=== PATIENT | male | born 1970 | race Caucasian/White ===

== ENCOUNTER 2017-06-17 12:32 | Emergency (ER) | payer SELFPAY ==
[~2017-06-17] VITALS: Ht 185.4 cm; Wt 130.2 kg
[2017-06-17] MEDS ORDERED: KETOROLAC 60 MG/2 ML VIAL IM STA (12:41)
[2017-06-17] MEDS ORDERED: LISI2.5T PO (12:49)
[2017-06-17] MEDS ORDERED: METF-478 PO (12:49)
[2017-06-17] MEDS ORDERED: ATEN25TA PO (12:49)
--- NOTE | 2017-06-17 13:01 | ED General ---
General Chief Complaint: Hip/Pelvic Problems Stated Complaint: R SIDE HIP PAIN Nursing Triage Note: PT CO OF R SIDED HIP PAIN DENIES INJURY Nursing Sepsis Screen: No Definite Risk Source of Information: Patient, Other (significant other) Exam Limitations: No Limitations History of Present Illness Time Seen by Provider: 12:35 Initial Comments 47-year-old male patient presents to the emergency department with complaints of right sided hip pain, low back pain, and flank pain. Patient does have a history of kidney stones. Denies any known injury. Denies pain radiating down the right leg. Denies bowel or bladder incontinence. Location Injury Occurred: denies known injury Timing/Duration: 1 Day Modifying Factors: worse with Other (worse with palpation) Allergies and Home Medications Allergies Coded Allergies: No Known Drug Allergies (Unverified , 06/17/17) Home Medications Atenolol 25 Mg Tablet, Unknown Dose PO DAILY, (Reported) Cyclobenzaprine HCl 10 Mg Tablet, 10 MG PO Q8H PRN for SPASMS, #10 Ref 0 Prescribed by: AMANDEEP METZ on 06/17/17 1530 Ketoprofen 75 Mg Capsule, 75 MG PO TID PRN for PAIN-MODERATE, #20 Ref 0 Prescribed by: AMANDEEP METZ on 06/17/17 1523 Lisinopril 2.5 Mg Tablet, Unknown Dose PO DAILY, (Reported) Metformin HCl 500 Mg Tab.er.24, Unknown Dose PO, (Reported) Prednisone 20 Mg Tab, 20 MG PO BID, #6 Ref 0 Prescribed by: AMANDEEP METZ on 06/17/17 1530 Constitutional: No chills, No fever, No malaise Respiratory: No cough, No dyspnea on exertion, No short of breath Cardiovascular: No chest pain, No edema, No palpitations Gastrointestinal: No abdominal pain, No constipation, No diarrhea, No nausea, No vomiting Genitourinary: No decreased output, No dysuria, No frequency, No hematuria, other (rt flank pain) Musculoskeletal: back pain (rt low back pain), joint pain (rt hip pain), No joint swelling Skin: no symptoms reported Psychiatric/Neurological: Denies Numbness, Denies Paresthesia, Denies Tingling , Denies Weakness All Other Systems Reviewed Negative Unless Noted: Yes (Negative excepted noted.) Past Dziebap-Welrel-Ntlfba Hx Patient Social History Alcohol Use: Denies Use Recreational Drug Use: No Smoking Status: Current Everyday Smoker Type Used: Cigarettes Recent Foreign Travel: No Contact w/Someone Who Travel: No Recent Infectious Disease Expo: No Recent Hopitalizations: No Seasonal Allergies Seasonal Allergies: No Surgeries HX Surgeries: Yes Respiratory Hx Respiratory Disorders: No Cardiovascular Hx Cardiac Disorders: Yes Cardiac Disorders: Hypertension Neurological Hx Neurological Disorders: No Genitourinary Hx Genitourinary Disorders: Yes Genitourinary Disorders: Kidney Stones Gastrointestinal Hx Gastrointestinal Disorders: No Musculoskeletal Hx Musculoskeletal Disorders: Yes Musculoskeletal Disorders: Chronic Back Pain Endocrine Hx Endocrine Disorders: Yes Endocrine Disorders: Diabetes, Non-Insulin dep Reviewed Nursing Assessment Reviewed/Agree w Nursing PMH: Yes Family Medical History Significant Family History: No Pertinent Family Hx Physical Exam Vital Signs Vital Sign - Last 12Hours 06/17/17 12:35 Temp 97.9 Pulse 102 Resp 18 B/P (MAP) 143/118 Pulse Ox 96 Capillary Refill : Less Than 3 Seconds General Appearance: No Apparent Distress, WD/WN HEENT: PERRL/EOMI, Pharynx Normal Neck: Full Range of Motion, Normal Inspection, Non Tender, Supple Respiratory: Lungs Clear, Normal Breath Sounds, No Accessory Muscle Use, No Respiratory Distress Cardiovascular: Regular Rate, Rhythm, No Edema, No Murmur, Normal Peripheral Pulses Gastrointestinal: Normal Bowel Sounds, No Organomegaly, Soft, No Distended, No Guarding, No Rebound, Tenderness (rt flank tenderness) Back: Normal Inspection, No Vertebral Tenderness, No CVA Tenderness (L), CVA Tenderness (R) Extremity: Normal Capillary Refill, Normal Inspection, Normal Range of Motion, No Calf Tenderness, No Pedal Edema, Other (mild rt posterior hip tenderness) Neurologic/Psychiatric: Alert, Oriented x3, No Motor/Sensory Deficits, Normal Mood/Affect Skin: Normal Color, Warm/Dry Progress/Results/Core Measures Results/Orders Lab Results My Orders Orders - AMANDEEP METZ Im/Sub-Q Injection Non-Ab Ed (06/17/17 ) Vital Signs/I&O Blood Pressure Mean: 126 Diagnostic Imaging Diagonstic Imaging: CT Plain Films/CT/US/NM/MRI: abdomen, pelvis Comments FINDINGS: Lung bases are clear. There is a healed rib fracture in the left posterolateral aspect of the chest. There is fatty liver. The gallbladder, spleen, pancreas, adrenal glands, kidneys, vascular structures, and bowel are unremarkable. There is no hydronephrosis or hydroureter. No visible renal calculi are seen. Distal ureters and urinary bladder are normal. The prostate gland is normal. The appendix is unremarkable. There is a fat-containing umbilical hernia. No free air or free fluid is seen. Osseous structures are age appropriate. IMPRESSION: 1. Fatty liver. 2. No hydronephrosis or renal calculi. 3. Fat-containing umbilical hernia. 4. Normal appendix. Dictated by: Dictated on workstation # [id number] Reviewed: Reviewed by Me (radiology report reviewed by me) Departure Communication Progress Notes patient seen and evaluated. toradol given and ua sent to lab. monitor patient. 1330 patient reports pain initially improved with toradol, but now pain is coming back. also states girlfriend reminded him that his previous kidney stones did feel similar to the current pain he is having. therefore, we will obtain a CT abd/pelvis for stones. patient given lortab for pain. monitor patient. 1510 all laboratory and diagnostic findings discussed with the patient. Patient reports pain is was completely resolved with medications given. We'll plan for discharge to home with Flexeril, prednisone, and ketoprofen prescriptions. All return precautions were discussed with the patient. Patient voices understanding and agrees with the treatment plan. Impression Impression: Primary Impression: Muscle strain Disposition: 01 HOME, SELF-CARE Condition: Improved Departure-Patient Inst. Decision time for Depature: 15:21 Referrals: NO,LOCAL PHYSICIAN (PCP/Family) Primary Care Physician Patient Instructions: Muscle Strain (DC) Add. Discharge Instructions: All discharge instructions reviewed with patient and/or family. Voiced understanding. Medications as directed. Tylenol over the counter as directed for pain. No heavy lifting for 5-7 days, then increase activity slowly. Ice pack for 20 minute intervals for 2-3 days, then use a heating pad or pack for pain. Monitor blood sugars closely. Follow-up with your family practitioner for recheck if no improvement in symptoms in 7-10 days. Return to the emergency department for worsened symptoms, bowel incontinence, bladder incontinence, numbness of the genitals, blood in the urine, inability to urinate , or any other concerns. Scripts Cyclobenzaprine HCl (Cyclobenzaprine HCl) 10 Mg Tablet 10 MG PO Q8H Y for SPASMS, #10 TAB 0 Refills Prov: AMANDEEP METZ 06/17/17 Prednisone (Prednisone) 20 Mg Tab 20 MG PO BID, #6 TAB 0 Refills Prov: AMANDEEP METZ 06/17/17 Ketoprofen (Ketoprofen) 75 Mg Capsule 75 MG PO TID Y for PAIN-MODERATE, #20 CAP 0 Refills Prov: AMANDEEP METZ 06/17/17 Work/School Note: [employer]ing AMANDEEP METZ Jun 17, 2017 1:01 pm
[2017-06-17 13:08] LABS: BILIRUBIN,URINE NEGATIVE (NEGATIVE); KETONES,URINE NEGATIVE (NEGATIVE); NITRITE,URINE NEGATIVE (NEGATIVE); PH,URINE 5 (5-9); PROTEIN,URINE 2+ (NEGATIVE); UROBILINOGEN,URINE 1 MG/DL (NORMAL)
[2017-06-17 13:09] LABS: LEUKOCYTE ESTERASE ,URINE 1+ (NEGATIVE); SQUAMOUS EPITHELIAL CELL,UR 0-2 /HPF
[2017-06-17] MEDS ORDERED: HYDROcodone/APAP 10 MG/325 MG (LORTAB) TAB PO STA (13:37)
--- NOTE | 2017-06-17 14:38 | Diagnostic Imaging Report ---
PROCEDURE: CT urinary tract, rule out kidney stone. TECHNIQUE: Multiple contiguous axial images were obtained through the abdomen and pelvis without the use of intravenous contrast. INDICATION: Right-sided abdominal pain, history of kidney stones. COMPARISON: None. FINDINGS: Lung bases are clear. There is a healed rib fracture in the left posterolateral aspect of the chest. There is fatty liver. The gallbladder, spleen, pancreas, adrenal glands, kidneys, vascular structures, and bowel are unremarkable. There is no hydronephrosis or hydroureter. No visible renal calculi are seen. Distal ureters and urinary bladder are normal. The prostate gland is normal. The appendix is unremarkable. There is a fat-containing umbilical hernia. No free air or free fluid is seen. Osseous structures are age appropriate. IMPRESSION: 1. Fatty liver. 2. No hydronephrosis or renal calculi. 3. Fat-containing umbilical hernia. 4. Normal appendix. Dictated by: Dictated on workstation # [id number]
[2017-06-17] MEDS ORDERED: KETO75CA PO (15:23)
[2017-06-17] MEDS ORDERED: CYCL10TA9 PO (15:30)
[2017-06-17] MEDS ORDERED: PRD20T PO (15:30)
[2017-06-17 15:41] VITALS: BP 143/88
== END 2017-06-17 15:40 | disposition home or self-care (01) ==
LOC: ER 12:34
DX: S76.011A Strain of muscle, fascia and tendon of right hip, initial encounter (principal); I10 Essential (primary) hypertension; E11.9 Type 2 diabetes mellitus without complications; F17.210 Nicotine dependence, cigarettes, uncomplicated; Z87.442 Personal history of urinary calculi; Z79.84 Long term (current) use of oral hypoglycemic drugs; X58.XXXA Exposure to other specified factors, initial encounter
CPT/HCPCS: 74176; 81000; 96372; 99283

== ENCOUNTER 2017-07-27 23:58 | Emergency (ER) | payer SELFPAY ==
[~2017-07-27] VITALS: Ht 185.4 cm; Wt 127.0 kg
[~2017-07-27 23:58] MED LIST: ATEN25TA PO; CYCL10TA9 PO; KETO75CA PO; LISI2.5T PO; METF-478 PO; PRD20T PO
[2017-07-28] MEDS ORDERED: BSS 15 ML IR ONE (00:15)
[2017-07-28] MEDS ORDERED: FLUORESCEIN (FLUOR-I-STRIPS) 1 MG STRP OU ONE (00:15)
[2017-07-28] MEDS ORDERED: TETRACAINE 0.5% OPHTH SOLN 4 ML BTL (SINGLE DOSE ONLY) OU ONE (00:15)
[2017-07-28] MEDS ORDERED: ALBUTEROL (01:03)
[2017-07-28] MEDS ORDERED: SPIRIVA (01:03)
[2017-07-28] MEDS ORDERED: BC POWDER (01:03)
[2017-07-28] MEDS ORDERED: BSS 15 ML ONE (02:37)
[2017-07-28] MEDS ORDERED: FLUORESCEIN (FLUOR-I-STRIPS) 1 MG STRP ONE (02:37)
[2017-07-28] MEDS ORDERED: TETRACAINE 0.5% OPHTH SOLN 4 ML BTL (SINGLE DOSE ONLY) ONE (02:37)
[2017-07-28] MEDS ORDERED: SULF1TAB35 PO (02:55)
--- NOTE | 2017-07-28 02:56 | ED EENT ---
History of Present Illness General Chief Complaint: Eye Problems Stated Complaint: F O IN RT EYE Nursing Triage Note: PT TO ED 7 W/ FRIEND FOR C/O RT EYE PAIN ET REDNESS ONSET X2-3 DAYS AFTER POWER WASHING "A LOT" RECENTLY. DENIES ANY KNOWN INJURY Source: patient Exam Limitations: no limitations History of Present Illness Time seen by provider: 00:15 Initial Comments This 47-year-old gentleman presents to emergency room with complaints of right eye pain and irritation over the past couple of days. This seemed to correlate with some recent power washing he was performing. He denies any known of foreign body or injury to the eye. He does have a questionable stye. He denies any significant itching. He has no significant change in vision. Vision is intermittently a little "hazy". He used some ciprofloxacin drops of his 's. Allergies and Home Medications Allergies Coded Allergies: No Known Drug Allergies (Unverified , 06/17/17) Home Medications Atenolol 25 Mg Tablet, Unknown Dose PO DAILY, (Reported) Lisinopril 2.5 Mg Tablet, Unknown Dose PO DAILY, (Reported) Metformin HCl 500 Mg Tab.er.24, Unknown Dose PO, (Reported) Sulfamethoxazole/Trimethoprim 1 Each Tablet, 1 EACH PO BID, #14 Prescribed by: CANDIE MONZON on 07/28/17 0255 [Albuterol] , (Reported) [Bc Powder] , (Reported) [Spiriva] , (Reported) Review of Systems Constitutional: no symptoms reported Eyes: See HPI Ears: No Symptoms Reported Nose: no symptoms reported Mouth: no symptoms reported Throat: no symptoms reported Respiratory: no symptoms reported Cardiovascular: no symptoms reported Gastrointestinal: no symptoms reported Musculoskeletal: no symptoms reported Skin: no symptoms reported Neurological: No Symptoms Reported Past Mmbrazz-Kvxctx-Cgqebv Hx Patient Social History Alcohol Use: Denies Use Recreational Drug Use: No Smoking Status: Current Everyday Smoker Type Used: Cigarettes Recent Foreign Travel: No Contact w/Someone Who Travel: No Recent Infectious Disease Expo: No Recent Hopitalizations: No Physical Abuse: No Sexual Abuse: No Mistreated: No Fear: No Seasonal Allergies Seasonal Allergies: No Surgeries History of Surgeries: No Respiratory History of Respiratory Disorde: Yes Respiratory Disorders: COPD Cardiovascular History of Cardiac Disorders: Yes Cardiac Disorders: Hypertension Neurological History of Neurological Disord: No Genitourinary History of Genitourinary Disor: Yes Genitourinary Disorders: Kidney Stones Gastrointestinal History of Gastrointestinal Di: No Musculoskeletal History of Musculoskeletal Dis: Yes Musculoskeletal Disorders: Chronic Back Pain Endocrine History of Endocrine Disorders: Yes Endocrine Disorders: Diabetes, Non-Insulin dep HEENT History of HEENT Disorders: Yes HEENT Disorders: Cataract Cancer History of Cancer: No Psychosocial History of Psychiatric Problem: No Suicide Risk Score: 0 Integumentary History of Skin or Integumenta: No Family Medical History Significant Family History: No Pertinent Family Hx Physical Exam Vital Signs Vital Sign - Last 12Hours 07/28/17 00:47 Temp 97.8 Pulse 98 Resp 20 B/P (MAP) 179/109 Pulse Ox 97 O2 Delivery Room Air General Appearance: WD/WN, no apparent distress Eyes: right eye lid inflammation (mild swelling and erythema of the right upper eyelid), right eye stye (there is possibly a small stye on the far posterior aspect of the mucosal side of the right upper eyelid. Questionable tiny stye on the lower eyelid as well.), right eye other (fluorescein exam was unremarkable), bilateral eye PERRL, bilateral eye EOMI, bilateral eye conjunctival inflammation (bilateral, right greater than left) Ears: right ear auricle normal Nose: normal inspection Skin: normal color, warm/dry Eye : Location: right eye Anesthesia (gtts): Tetracaine Progress/Procedure Conclusion Red eye was anesthetized with tetracaine. Fluorescein exam was performed and revealed no abnormalities. No foreign bodies were identified. I was irrigated with balanced salt saline after exam. Progress/Results/Core Measures Results/Orders My Orders Orders - CANDIE MAURICIO MD Tetracaine 0.5% Ophth Rachael Sdv (Tetracai (07/28/17 00:15) Fluorescein Strips ([id number]) (07/28/17 00:15) Balanced Salt Irrigation Soln (Bss Irrig (07/28/17 00:15) Fluorescein Strips ([id number]-F-[id number]) (07/28/17 02:37) Tetracaine 0.5% Ophth Rachael Sdv (Tetracai (07/28/17 02:37) Balanced Salt Irrigation Soln (Bss Irrig (07/28/17 02:37) Rx-Ciprofloxacin Ophth Soln (Rx-Ciloxan (07/28/17 03:00) Sulfamethoxazole/Trimet Ds Tab (Bactrim (07/28/17 03:00) Medications Given in ED Vital Signs/I&O Blood Pressure Mean: 132 Departure Impression Impression: Primary Impression: Jovita Qualified Codes: H00.011 - Hordeolum externum right upper eyelid Additional Impression: Irritation of right eye Disposition: 01 HOME, SELF-CARE Condition: Improved Departure-Patient Inst. Decision time for Depature: 02:50 Referrals: LEVAR EVANS OD,LOCAL PHYSICIAN (PCP) Primary Care Physician Patient Instructions: wilbur (Hordeolum) Add. Discharge Instructions: Use your antibiotic eyedrops as prescribed (2 drops every 4 hours). Follow-up with an eye doctor as soon as possible. Complete your antibiotic pills as prescribed. Return to the emergency room if symptoms worsen. Wear protective eyewear when working in environments with spray or debris such as pressure washing. All discharge instructions reviewed with patient and/or family. Voiced understanding. Scripts Sulfamethoxazole/Trimethoprim (Bactrim Ds Tablet) 1 Each Tablet 1 EACH PO BID, #14 TAB Prov: CANDIE MAURICIO MD 07/28/17 CANDIE MAURICIO MD Jul 28, 2017 02:56
[2017-07-28] MEDS ORDERED: RX-CIPROFLOXACIN (CILOXAN) 0.3% OP SOLN 2.5 ML OU ONE (03:00)
[2017-07-28] MEDS ORDERED: TRIM/SULFAMETH 160/800 (SEPTRA DS) TAB PO ONE (03:00)
[2017-07-28 03:08] VITALS: BP 169/106
== END 2017-07-28 03:08 | disposition home or self-care (01) ==
LOC: EDUNIT# 23:58 → ER 07-28 00:03
DX: H00.011 Hordeolum externum right upper eyelid (principal); H57.8 Other specified disorders of eye and adnexa; J44.9 Chronic obstructive pulmonary disease, unspecified; I10 Essential (primary) hypertension; E11.9 Type 2 diabetes mellitus without complications; F17.210 Nicotine dependence, cigarettes, uncomplicated; Z87.442 Personal history of urinary calculi; Z79.84 Long term (current) use of oral hypoglycemic drugs
CPT/HCPCS: 99283

== ENCOUNTER 2017-07-31 11:51 | Emergency (ER) | payer SELFPAY ==
[~2017-07-31] VITALS: Ht 185.4 cm; Wt 127.0 kg
[~2017-07-31 11:51] MED LIST changes: +ALBUTEROL; +BC POWDER; +SPIRIVA; +SULF1TAB35 PO
[2017-07-31] MEDS ORDERED: GLIM1TAB PO ×2 (12:08→12:10)
[2017-07-31] MEDS ORDERED: ATEN25TA PO (12:10)
[2017-07-31] MEDS ORDERED: LISI10TA2 PO (12:10)
[2017-07-31] MEDS ORDERED: METF1000 PO (12:10)
--- NOTE | 2017-07-31 12:10 | ED General ---
General Chief Complaint: Glucose Problems Stated Complaint: BLOOD SUGAR HIGH Nursing Triage Note: C/O HYPERGLYCEMIA. reports being out of medication for a couple weeks Nursing Sepsis Screen: No Definite Risk Source of Information: Patient Exam Limitations: No Limitations History of Present Illness Time Seen by Provider: 12:07 Initial Comments To ER with reports of hyperglycemia. States that he checked his blood sugars at home and they've been in the 400-500 range. He relates this to running out of his metformin and glimepiride a few weeks ago. He is from [facility] and recently moved to this area and does not have insurance or does he have a health care provider. He's also been out of his atenolol and lisinopril. Timing/Duration: Other Severity: Moderate Allergies and Home Medications Allergies Coded Allergies: No Known Drug Allergies (Unverified , 06/17/17) Home Medications Atenolol 25 Mg Tablet, Unknown Dose PO DAILY, (Reported) Lisinopril 2.5 Mg Tablet, Unknown Dose PO DAILY, (Reported) Metformin HCl 500 Mg Tab.er.24, Unknown Dose PO, (Reported) Sulfamethoxazole/Trimethoprim 1 Each Tablet, 1 EACH PO BID, #14 Prescribed by: CANDIE MONZON on 07/28/17 0255 [Albuterol] , (Reported) [Bc Powder] , (Reported) [Spiriva] , (Reported) Constitutional: see HPI EENTM: see HPI Respiratory: no symptoms reported Cardiovascular: no symptoms reported Genitourinary: no symptoms reported Musculoskeletal: no symptoms reported Skin: no symptoms reported Psychiatric/Neurological: No Symptoms Reported Hematologic/Lymphatic: No Symptoms Reported Past Xoizyiy-Tysvld-Mdyaeh Hx Patient Social History Alcohol Use: Denies Use Recreational Drug Use: No Smoking Status: Current Everyday Smoker Type Used: Cigarettes Recent Foreign Travel: No Contact w/Someone Who Travel: No Recent Infectious Disease Expo: No Recent Hopitalizations: No Physical Abuse: No Sexual Abuse: No Seasonal Allergies Seasonal Allergies: No Surgeries History of Surgeries: No Respiratory History of Respiratory Disorde: Yes Respiratory Disorders: COPD Cardiovascular History of Cardiac Disorders: Yes Cardiac Disorders: Hypertension Neurological History of Neurological Disord: No Genitourinary History of Genitourinary Disor: Yes Genitourinary Disorders: Kidney Stones Gastrointestinal History of Gastrointestinal Di: No Musculoskeletal History of Musculoskeletal Dis: Yes Musculoskeletal Disorders: Chronic Back Pain Endocrine History of Endocrine Disorders: Yes Endocrine Disorders: Diabetes, Non-Insulin dep HEENT History of HEENT Disorders: Yes HEENT Disorders: Cataract Cancer History of Cancer: No Psychosocial History of Psychiatric Problem: No Suicide Risk Score: 0 Integumentary History of Skin or Integumenta: No Family Medical History Significant Family History: No Pertinent Family Hx Physical Exam Vital Signs Vital Sign - Last 12Hours 07/31/17 12:04 Temp 98.9 Pulse 110 Resp 18 B/P (MAP) 165/114 Pulse Ox 100 Capillary Refill : Less Than 3 Seconds General Appearance: No Apparent Distress, WD/WN, Obese Eyes: Bilateral Eye Normal Inspection, Bilateral Eye PERRL, Bilateral Eye EOMI HEENT: PERRL/EOMI, TMs Normal Neck: Full Range of Motion, Normal Inspection Respiratory: No Accessory Muscle Use, No Respiratory Distress Cardiovascular: Regular Rate, Rhythm, Normal Peripheral Pulses Gastrointestinal: Normal Bowel Sounds, Non Tender, Soft Extremity: Normal Capillary Refill, Normal Inspection Neurologic/Psychiatric: Alert, Oriented x3, No Motor/Sensory Deficits Skin: Normal Color, Warm/Dry Progress/Results/Core Measures Results/Orders Vital Signs/I&O Vital Sign - Last 12Hours 07/31/17 12:04 Temp 98.9 Pulse 110 Resp 18 B/P (MAP) 165/114 Pulse Ox 100 Blood Pressure Mean: 131 Departure Impression Impression: Primary Impression: Diabetes mellitus Disposition: 01 HOME, SELF-CARE Condition: Stable Departure-Patient Inst. Decision time for Depature: 12:09 Referrals: LE WILL,LOCAL PHYSICIAN (PCP) Primary Care Physician Patient Instructions: Diabetes Type 2 (DC) Add. Discharge Instructions: 1. Call Dr. Will to make an appointment to be seen 2. Fill the medications today and take as directed All discharge instructions reviewed with patient and/or family. Voiced understanding. Scripts Metformin HCl (Metformin HCl) 1,000 Mg Tablet 1000 MG PO BID, #28 TAB Prov: CHAITANYA HENDERSON [employer] 07/31/17 Lisinopril (Lisinopril) 10 Mg Tablet 10 MG PO DAILY, #14 TAB Prov: CHAITANYA HENDERSON [employer] 07/31/17 Glimepiride (Glimepiride) 1 Mg Tablet 1 MG PO DAILY, #14 TAB Prov: CHAITANYA HENDERSON [employer] 07/31/17 Atenolol (Atenolol) 25 Mg Tablet 25 MG PO DAILY, #14 TAB Prov: CHAITANYA HENDERSON APRN 07/31/17 CHAITANYA HENDERSON APRN Jul 31, 2017 12:10
[2017-07-31] MEDS ORDERED: NS IV 1000 ML 1,000 ML IV SCH (12:15)
[2017-07-31] MEDS ORDERED: meTOprolol TARTRATE 25 MG (LOPRESSOR) TABLET PO ONE (12:15)
[2017-07-31 12:21] LABS: BASOPHILS % (AUTO) 0 % (0-10); EOSINOPHILS % (AUTO) 0 % (0-10); LYMPHOCYTES % (AUTO) 10 % (12-44); MEAN CORPUSCULAR HEMOGLOBIN 30 PG (25-34); MEAN CORPUSCULAR HGB CONC 33 G/DL (32-36); MEAN CORPUSCULAR VOLUME 89 FL (80-99); MONOCYTES # (AUTO) 0.1 X 10^3 (0.0-1.0); MONOCYTES % (AUTO) 1 % (0-12); NEUTROPHILS # (AUTO) 9.2 X 10^3 (1.8-7.8); NEUTROPHILS % (AUTO) 89 % (42-75); PLATELET COUNT 347 10^3/uL (130-400); RED BLOOD COUNT 5.15 10^6/uL (4.35-5.85); RED CELL DISTRIBUTION WIDTH 13.3 % (10.0-14.5); WHITE BLOOD COUNT 10.4 10^3/uL (4.3-11.0)
[2017-07-31 12:35] LABS: BAND NEUTROPHILS 0 %; BASOPHILS % (MANUAL) 0 %; EOSINOPHILS % (MANUAL) 0 %; LYMPHOCYTES % (MANUAL) 13 %; NEUTROPHILS % (MANUAL) 87 %
[2017-07-31 12:47] LABS: ALANINE AMINOTRANSFERASE 28 U/L (0-55); ALBUMIN 4.2 GM/DL (3.2-4.5); ANION GAP 9 MMOL/L (5-14); ASPARTATE AMINO TRANSFERASE 14 U/L (5-34); BILIRUBIN,TOTAL 0.6 MG/DL (0.1-1.0); BLOOD UREA NITROGEN 18 MG/DL (7-18); BUN/CREATININE RATIO 17; CALCIUM 9.3 MG/DL (8.5-10.1); CARBON DIOXIDE 24 MMOL/L (21-32); CHLORIDE 102 MMOL/L (98-107); CREATININE SERUM 1.04 MG/DL (0.60-1.30); GFR ESTIMATED > 60; GLUCOSE 352 MG/DL (70-105); POTASSIUM 4.4 MMOL/L (3.6-5.0); SODIUM 135 MMOL/L (135-145); TOTAL PROTEIN 7.6 GM/DL (6.4-8.2)
[2017-07-31 12:51] LABS: BILIRUBIN,URINE NEGATIVE (NEGATIVE); KETONES,URINE 1+ (NEGATIVE); LEUKOCYTE ESTERASE ,URINE NEGATIVE (NEGATIVE); NITRITE,URINE NEGATIVE (NEGATIVE); PH,URINE 6 (5-9); PROTEIN,URINE 2+ (NEGATIVE); UROBILINOGEN,URINE NORMAL (NORMAL)
[2017-07-31 13:14] VITALS: BP 168/121
== END 2017-07-31 13:15 | disposition home or self-care (01) ==
LOC: EDUNIT# 11:51 → ER 11:53
DX: Z87.442 Personal history of urinary calculi; Z79.84 Long term (current) use of oral hypoglycemic drugs; J44.9 Chronic obstructive pulmonary disease, unspecified; F17.210 Nicotine dependence, cigarettes, uncomplicated; E11.65 Type 2 diabetes mellitus with hyperglycemia; I10 Essential (primary) hypertension
CPT/HCPCS: 36415; 80053; 81000; 82962; 85007; 85027; 96360

== ENCOUNTER 2017-11-27 18:06 | Emergency (ER) | payer SELFPAY ==
[~2017-11-27] VITALS: Ht 185.4 cm; Wt 127.5 kg
[~2017-11-27 18:06] MED LIST changes: +GLIM1TAB PO; +LISI10TA2 PO; +METF1000 PO
[2017-11-27] MEDS ORDERED: KETOROLAC 30 MG/ML VIAL IVP STA (18:25)
[2017-11-27] MEDS ORDERED: ASPIRIN 81 MG CHEW (CHILDREN'S ASA) PO STA (18:25)
[2017-11-27] MEDS ORDERED: IOHEXOL 350 MG/ML 100 ML (OMNIPAQUE 350) VIAL IV ONE (18:30)
[2017-11-27] MEDS ORDERED: NS 100 ML (IVPB) BAG IV ONE (18:30)
--- NOTE | 2017-11-27 18:36 | ED General ---
General Chief Complaint: General Problems/Pain Stated Complaint: HERNIA PAIN Nursing Triage Note: PATIENT STATES THAT HE HAS HAD A HERNIA FOR A LONG TIME. IT HAS BEEN CAUSING HIM A LOT OF PAIN AND HE HAS NOT BEEN ABLE TO GET AN APPOINTMENT WITH HIS PCP YET. Nursing Sepsis Screen: No Definite Risk Source of Information: Patient History of Present Illness Date Seen by Provider: Nov 27, 2017 Time Seen by Provider: 18:13 Initial Comments PT ARRIVES VIA POV PT CAME TO ER FOR ONGOING ABDOMINAL PAIN/ UMBILICAL HERNIA PAIN--HAS HAD HERNIA FOR A LONG TIME, BUT HAS NEVER SOUGHT CARE. PAIN HAS BEEN WORSE FOR THE LAST FEW DAYS AND WAS MUCH WORSE TODAY, AFTER LIFTING ALOT OF HEAVY THINGS AT WORK TODAY, INCLUDING A STOVE. 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 PT UNAWARE OF RAPID HEART BEAT STATES HE HAS HISTORY OF "IRREGULAR" HEART BEAT, BUT HAS NEVER BEEN ON ANY MEDICATIONS AND DOES NOT KNOW WHAT TYPE OF "IRREGULAR" HEART BEAT HE HAS HAD PT HAS HAD 2 CARDIAC CATHS--FIRST ONE WAS AT [facility], LAST ONE WAS AT [facility] IN 2016, AND BOTH WERE NORMAL. PER PT. NO CHEST PAIN SLIGHTLY SHORT OF BREATH NO SWEATS NO DIZZINESS NO SWELLING IN LEGS/ FEET OR PAIN IN [place] PT HAS HAD "BAD SINUS INFECTION" LATELY, AND HAS BEEN TAKING OTC CORICIDIN FOR THOSE SYMPTOMS PT IS ALSO A DIABETIC, BLOOD SUGARS RUN IN HIGH 100'S TO HIGH 300'S. DID NOT CHECK BLOOD GLUCOSE TODAY, BUT WAS 276 LAST PM PT HAS HISTORY OF HTN WELL PT ARRIVES WITH FEMALE S.O. --MORALES WESLEY, WELL KNOWN TO ER FOR POLYSUBSTANCE ABUSE AND ALCOHOLISM PCP: [facility]YCHIATRICSU[facility]. MJ ENRIQUE NO PAINTER PLATE Allergies and Home Medications Allergies Coded Allergies: No Known Drug Allergies (Unverified , 06/17/17) Home Medications Atenolol 25 Mg Tablet, Unknown Dose PO DAILY, (Reported) Atenolol 25 Mg Tablet, 25 MG PO DAILY, #14 Prescribed by: CHAITANYA HENDERSON on 07/31/17 1210 Glimepiride 1 Mg Tablet, 1 MG PO, (Reported) Glimepiride 1 Mg Tablet, 1 MG PO DAILY, #14 Prescribed by: CHAITANYA HENDERSON on 07/31/17 1210 Lisinopril 2.5 Mg Tablet, Unknown Dose PO DAILY, (Reported) Lisinopril 10 Mg Tablet, 10 MG PO DAILY, #14 Prescribed by: CHAITANYA HENDERSON on 07/31/17 1210 Metformin HCl 500 Mg Tab.er.24, Unknown Dose PO, (Reported) Metformin HCl 1,000 Mg Tablet, 1,000 MG PO BID, #28 Prescribed by: CHAITANYA HENDERSON on 07/31/17 1210 Sulfamethoxazole/Trimethoprim 1 Each Tablet, 1 EACH PO BID, #20 Prescribed by: HILARIA NEWBERRY on 11/27/171958 Constitutional: no symptoms reported EENTM: nose congestion (SINUS PAIN) Respiratory: see HPI, No cough, dyspnea on exertion, No orthopnea, short of breath, No wheezing Cardiovascular: see HPI, No chest pain, No edema, No syncope, No vascular heart diseas, other (NO SENSATION OF RAPID HEART BEAT) Gastrointestinal: see HPI, abdominal pain, No constipation, No diarrhea, No nausea, No vomiting Genitourinary: no symptoms reported Musculoskeletal: no symptoms reported Skin: no symptoms reported Psychiatric/Neurological: No Symptoms Reported Hematologic/Lymphatic: No Symptoms Reported Immunological/Allergic: no symptoms reported Past Skpncbg-Pflmbx-Dyonji Hx Patient Social History Alcohol Use: Past History (HISTORY OF ABUSE, NONE SINCE 2009, PER PT ON ) Recreational Drug Use: Yes (HISTORY OF COCAINE + CRACK COOCAINE AND ECSTASY USE , DENIES IV USE AND DENIES USE FOR 6 YEARS. PER PT ON 11/27/17. TESTED + FOR METH/AMPHETAMINES AND OPIATES ON 11/27/17) Drug of Choice: COCAINE/CRACK & EX- TESTED + FOR METH/AMPHETAMINES AND OPIATES 11/27/17 Smoking Status: Current Everyday Smoker (1 PPD) Type Used: Cigarettes (1 PPD) Recent Foreign Travel: No Contact w/Someone Who Travel: No Recent Infectious Disease Expo: No Recent Hopitalizations: No Seasonal Allergies Seasonal Allergies: No Surgeries History of Surgeries: Yes (CARDIAC CATH X 2--NO INTERVENTION) Respiratory History of Respiratory Disorde: Yes Respiratory Disorders: COPD Cardiovascular History of Cardiac Disorders: Yes Cardiac Disorders: Hypertension Neurological History of Neurological Disord: No Genitourinary History of Genitourinary Disor: Yes Genitourinary Disorders: Kidney Stones Gastrointestinal History of Gastrointestinal Di: Yes (UMBILICAL HERNIA, NO REPAIR) Gastrointestinal Disorders: Abdominal Hernia Musculoskeletal History of Musculoskeletal Dis: Yes (ARTHRITIS IN HANDS/THUMBS) Musculoskeletal Disorders: Arthritis, Chronic Back Pain Endocrine History of Endocrine Disorders: Yes Endocrine Disorders: Diabetes, Non-Insulin dep HEENT History of HEENT Disorders: Yes HEENT Disorders: Cataract Cancer History of Cancer: No Psychosocial History of Psychiatric Problem: No Integumentary History of Skin or Integumenta: No Family Medical History Significant Family History: No Pertinent Family Hx Physical Exam Vital Signs Vital Sign - Last 12Hours 11/27/17 18:19 Temp 98.8 Pulse 109 Resp 24 B/P (MAP) 178/117 (137) Pulse Ox 97 O2 Delivery Room Air Capillary Refill : Less Than 3 Seconds General Appearance: No Apparent Distress, Obese, Other (ANXIOUS, SPEECH RAPID AND SOMEWHAT MUMBLED. APPEARS TO BE UNDER THE INFLUENCE OF SOME SUBSTANCE/S) HEENT: PERRL/EOMI Neck: Normal Inspection Respiratory: Normal Breath Sounds, No Accessory Muscle Use, No Respiratory Distress Cardiovascular: Regular Rate, Rhythm, No Edema, No Murmur, Normal Peripheral Pulses Gastrointestinal: Hernia (MODERATE SIZED, SOFT, REDUCIBLE UMBILICAL HERNIA. OVERLYING SKIN IS ERYTHEMATOUS, WITH 1 CM SCABBED WOUND IN CENTER. ALSO HAS 2 CM SCABBED WOUND OUTSIDE OF PERIPHERY OF HERNIA, BUT AT 2:00 FROM UMBILICUS.. SLIGHT SURROUNDING ERYTHEMA. NO AREAS OF FLUCTUANCE OR DRAINAGE OR STREAKS. ), Tenderness (AROUND HERNIA SITE AND SUPRAPUBIC AREA. 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 Norm as Tested Skin: Normal Color, Warm/Dry Progress/Results/Core Measures Suspected Sepsis Recent Fever Within 48 Hours: No Infection Criteria Present: None New/Unexplained Altered Menta: No Sepsis Screen: No Definite Risk Sepsis Diagnosis: SIRS Temperature:98.8 Pulse: 109 Respiratory Rate: 24 Laboratory Tests 11/27/17 18:30: White Blood Count 9.8 Blood Pressure 178 /117 Mean: 137 Laboratory Tests 11/27/17 18:30: Creatinine 0.84, INR Comment 0.8, Platelet Count 377, Total Bilirubin 0.2 Results/Orders Lab Results Laboratory Tests Test 11/27/17 18:30 11/27/17 18:37 Range/Units White Blood Count 9.8 4.3-11.0 10^3/uL Red Blood Count 5.05 4.35-5.85 10^6/uL Hemoglobin 15.5 13.3-17.7 G/DL Hematocrit 44 40-54 % Mean Corpuscular Volume 87 80-99 FL Mean Corpuscular Hemoglobin 31 25-34 PG Mean Corpuscular Hemoglobin Concent 36 32-36 G/DL Red Cell Distribution Width 12.5 10.0-14.5 % Platelet Count 377 130-400 10^3/uL Mean Platelet Volume 10.0 7.4-10.4 FL Neutrophils (%) (Auto) 60 42-75 % Lymphocytes (%) (Auto) 30 12-44 % Monocytes (%) (Auto) 7 0-12 % Eosinophils (%) (Auto) 2 0-10 % Basophils (%) (Auto) 1 0-10 % Neutrophils # (Auto) 5.9 1.8-7.8 X 10^3 Lymphocytes # (Auto) 3.0 1.0-4.0 X 10^3 Monocytes # (Auto) 0.7 0.0-1.0 X 10^3 Eosinophils # (Auto) 0.2 0.0-0.3 10^3/uL Basophils # (Auto) 0.1 0.0-0.1 10^3/uL Prothrombin Time 11.1 L 12.2-14.7 SEC INR Comment 0.8 0.8-1.4 Activated Partial Thromboplast Time 34 24-35 SEC Sodium Level 137 135-145 MMOL/L Potassium Level 4.2 3.6-5.0 MMOL/L Chloride Level 103 98-107 MMOL/L Carbon Dioxide Level 22 21-32 MMOL/L Anion Gap 12 5-14 MMOL/L Blood Urea Nitrogen 12 7-18 MG/DL Creatinine 0.84 0.60-1.30 MG/DL Estimat Glomerular Filtration Rate > 60 BUN/Creatinine Ratio 14 Glucose Level 261 H 70-105 MG/DL Glucometer 246 H 70-110 MG/DL Calcium Level 9.0 8.5-10.1 MG/DL Magnesium Level 2.2 1.8-2.4 MG/DL Total Bilirubin 0.2 0.1-1.0 MG/DL Aspartate Amino Transf (AST/SGOT) 19 5-34 U/L Alanine Aminotransferase (ALT/SGPT) 27 0-55 U/L Alkaline Phosphatase 121 40-136 U/L Total Creatine Kinase 97 30-200 U/L Creatine Kinase MB 1.6 <6.6 NG/ML Troponin I < 0.30 <0.30 NG/ML B-Type Natriuretic Peptide < 10.0 <100.0 PG/ML Total Protein 7.5 6.4-8.2 GM/DL Albumin 4.0 3.2-4.5 GM/DL Amylase Level 34 25-125 U/L Lipase 16 8-78 U/L TSH [employer] Testing 0.93 0.35-4.94 UIU/ML Serum Alcohol < 10 <10 MG/DL Urine Color YELLOW Urine Clarity CLEAR Urine pH 6 5-9 Urine Specific [place] 1.020 1.016-1.022 Urine Protein 1+ H NEGATIVE Urine Glucose (UA) 4+ H NEGATIVE Urine Ketones NEGATIVE NEGATIVE Urine Nitrite NEGATIVE NEGATIVE Urine Bilirubin NEGATIVE NEGATIVE Urine Urobilinogen NORMAL NORMAL MG/DL Urine Leukocyte Esterase NEGATIVE NEGATIVE Urine RBC (Auto) NEGATIVE NEGATIVE Urine RBC NONE /HPF Urine WBC RARE /HPF Urine Squamous Epithelial Cells NONE /HPF Urine Crystals PRESENT H /LPF Urine Calcium Oxalate Crystals FEW H /LPF Urine Bacteria NEGATIVE /HPF Urine Casts NONE /LPF Urine Mucus NEGATIVE /LPF Urine Culture Indicated NO Urine Opiates Screen POSITIVE H NEGATIVE Urine Oxycodone Screen NEGATIVE NEGATIVE Urine Methadone Screen NEGATIVE NEGATIVE Urine Propoxyphene Screen NEGATIVE NEGATIVE Urine Barbiturates Screen NEGATIVE NEGATIVE Ur Tricyclic Antidepressants Screen NEGATIVE NEGATIVE Urine Phencyclidine Screen NEGATIVE NEGATIVE Urine Amphetamines Screen POSITIVE H NEGATIVE Urine Methamphetamines Screen POSITIVE H NEGATIVE Urine Benzodiazepines Screen NEGATIVE NEGATIVE Urine Cocaine Screen NEGATIVE NEGATIVE Urine Cannabinoids Screen NEGATIVE NEGATIVE My Orders Orders - HILARIA NEWBERRY DO Accucheck Stat ONCE (11/27/17 18:25) Saline Lock/Iv-Start (11/27/17 18:25) Ekg Tracing (11/27/17 18:25) Monitor-Rhythm Ecg Trace Only (11/27/17 18:25) Alcohol (11/27/17 18:25) Amylase (11/27/17 18:25) BNP (11/27/17 18:25) Cbc With Automated Diff (11/27/17 18:25) Comprehensive Metabolic Panel (11/27/17 18:25) Creatine Kinase (11/27/17 18:25) Creatine Kinase Mb (11/27/17 18:25) Drug Screen Stat (Urine) (11/27/17 18:25) Lipase (11/27/17 18:25) Magnesium (11/27/17 18:25) Protime With Inr (11/27/17 18:25) Partial Thromboplastin Time (11/27/17 18:25) Thyroid Analyzer (11/27/17 18:25) Troponin I (11/27/17 18:25) Ua Culture If Indicated (11/27/17 18:25) Chest 1 View, Ap/Pa Only (11/27/17 18:25) Ct Abdomen/Pelvis W (11/27/17 18:25) Aspirin Chewable Tablet (Baby Aspirin Ch (11/27/17 18:25) Ketorolac Injection (Toradol Injection) (11/27/17 18:25) Iohexol Injection (Omnipaque 350 Mg/Ml 1 (11/27/17 18:30) Ns (Ivpb) (Sodium Chloride 0.9% Ivpb Bag (11/27/17 18:30) Orphenadrine Injection (Norflex Injectio (11/27/17 20:00) Medications Given in ED Current Medications Medications Dose Ordered Sig/Bushra Route Start Time Stop Time Status Last Admin Dose Admin Iohexol 100 ml ONCE ONCE IV 11/27/17 18:30 11/27/17 18:38 DC 11/27/17 19:22 100 ML Orphenadrine Citrate 60 mg ONCE ONCE IV 11/27/17 20:00 11/27/17 20:01 DC 11/27/17 20:29 60 MG Sodium Chloride 100 ml ONCE ONCE IV 11/27/17 18:30 11/27/17 18:38 DC 11/27/17 19:23 100 ML Vital Signs/I&O Vital Sign - Last 12Hours 11/27/17 11/27/17 18:19 20:26 Temp 98.8 98.8 Pulse 109 102 Resp 24 24 B/P (MAP) 178/117 (137) Pulse Ox 97 97 O2 Delivery Room Air Capillary Refill : Less Than 3 Seconds Blood Pressure Mean: 137 Progress Note : Progress Note UNEVENTFUL ER STAY WANTING "SOMETHING STRONG" FOR PAIN STATES HE TAKES TRAMADOL FOR PAIN "BUT NOT FOR A LONG TIME" ECG Comment CXR--INTERSTITIAL OPACITIES, POSSIBLY CHRONIC CT ABDOMEN/PELVIS--UMBILICAL HERNIA, CONTAINING FAT, MODERATE TO LARGE AMOUNT OF STOOL IN COLON. NO ACUTE PROCESS PER RADIOLOGIST REPORTS @ 1954 Departure Impression Impression: Primary Impression: Umbilical hernia Additional Impressions: POSSIBLE CELLULITIS OF UMBILICAL AREA Illicit drug use BRIEF TACHYCARDIA Abdominal wall pain Constipation NIDDM Disposition: HOME, SELF-CARE Condition: Stable Departure-Patient Inst. Referrals: LE WILL DO (PCP) Primary Care Physician AHMET ENRIQUE (Family) Primary Care Physician JOSE AMAYA DO Patient Instructions: Cellulitis (Skin Infection), Adult (DC), Constipation, Adult (DC), Diabetes Type 2 (DC), High Fiber Diet, Umbilical Hernia, Adult Add. Discharge Instructions: CONTINUE YOUR REGULAR MEDICATIONS PRESCRIBED TAKE MIRALAX DAILY FOLLOW UP WITH PSYCHIATRIC-K THIS WEEK FOR FURTHER CARE FOLLOW UP WITH DR. AMAYA OR SURGEON OF CHOICE FOR HERNIA All discharge instructions reviewed with patient and/or family. Voiced understanding. Scripts Sulfamethoxazole/Trimethoprim (Bactrim Ds Tablet) 1 Each Tablet 1 EACH PO BID, #20 TAB Prov: HILARIA NEWBERRY DO 11/27/17 HILARIA NEWBERRY DO Nov 27, 2017 18:36
[2017-11-27 18:39] LABS: BASOPHILS # (AUTO) 0.1 10^3/uL (0.0-0.1); BASOPHILS % (AUTO) 1 % (0-10); EOSINOPHILS # (AUTO) 0.2 10^3/uL (0.0-0.3); EOSINOPHILS % (AUTO) 2 % (0-10); HEMATOCRIT 44 % (40-54); HEMOGLOBIN 15.5 G/DL (13.3-17.7); LYMPHOCYTES % (AUTO) 30 % (12-44); MEAN CORPUSCULAR HEMOGLOBIN 31 PG (25-34); MEAN CORPUSCULAR HGB CONC 36 G/DL (32-36); MEAN CORPUSCULAR VOLUME 87 FL (80-99); MONOCYTES # (AUTO) 0.7 X 10^3 (0.0-1.0); MONOCYTES % (AUTO) 7 % (0-12); NEUTROPHILS # (AUTO) 5.9 X 10^3 (1.8-7.8); NEUTROPHILS % (AUTO) 60 % (42-75); PLATELET COUNT 377 10^3/uL (130-400); RED BLOOD COUNT 5.05 10^6/uL (4.35-5.85); RED CELL DISTRIBUTION WIDTH 12.5 % (10.0-14.5); WHITE BLOOD COUNT 9.8 10^3/uL (4.3-11.0)
[2017-11-27 18:51] LABS: BILIRUBIN,URINE NEGATIVE (NEGATIVE); CLARITY,URINE CLEAR; COLOR,URINE YELLOW; GLUCOSE, URINE (UA) 4+ (NEGATIVE); KETONES,URINE NEGATIVE (NEGATIVE); LEUKOCYTE ESTERASE ,URINE NEGATIVE (NEGATIVE); NITRITE,URINE NEGATIVE (NEGATIVE); PH,URINE 6 (5-9); PROTEIN,URINE 1+ (NEGATIVE); UROBILINOGEN,URINE NORMAL (NORMAL)
[2017-11-27 18:52] LABS: INR 0.8 (0.8-1.4); PROTHROMBIN TIME PATIENT 11.1 SEC (12.2-14.7)
[2017-11-27 19:01] LABS: ALANINE AMINOTRANSFERASE 27 U/L (0-55); ALKALINE PHOSPHATASE 121 U/L (40-136); AMYLASE 34 U/L (25-125); BILIRUBIN,TOTAL 0.2 MG/DL (0.1-1.0); BUN/CREATININE RATIO 14; CARBON DIOXIDE 22 MMOL/L (21-32); CHLORIDE 103 MMOL/L (98-107); CREATINE KINASE 97 U/L (30-200); CREATININE SERUM 0.84 MG/DL (0.60-1.30); GFR ESTIMATED > 60; GLUCOSE 261 MG/DL (70-105); LIPASE 16 U/L (8-78); MAGNESIUM 2.2 MG/DL (1.8-2.4); POTASSIUM 4.2 MMOL/L (3.6-5.0); SODIUM 137 MMOL/L (135-145); TOTAL PROTEIN 7.5 GM/DL (6.4-8.2)
[2017-11-27 19:07] LABS: AMPHETAMINE SCREEN, URINE POSITIVE (NEGATIVE); BARBITURATE SCREEN URINE NEGATIVE (NEGATIVE); BENZODIAZEPINES SCREEN URINE NEGATIVE (NEGATIVE); CANNABINOID SCREEN, URINE NEGATIVE (NEGATIVE); COCAINE SCREEN URINE NEGATIVE (NEGATIVE); METHADONE STAT NEGATIVE (NEGATIVE); METHAMPHETAMINE SCREEN URINE S POSITIVE (NEGATIVE); OPIATE SCREEN URINE POSITIVE (NEGATIVE); OXYCODONE STAT NEGATIVE (NEGATIVE); PROPOXYPHENE STAT NEGATIVE (NEGATIVE); TRICYCLIC ANTIDEPRESSANTS SCRE NEGATIVE (NEGATIVE)
[2017-11-27 19:15] LABS: BACTERIA,URINE NEGATIVE /HPF; CALCIUM OXALATE CRYSTALS,UR FEW /LPF; WBC,URINE RARE /HPF
[2017-11-27 19:21] LABS: CREATINE KINASE MB 1.6 NG/ML (<6.6); TSH (THYROID ANALYZER) 0.93 UIU/ML (0.35-4.94)
--- NOTE | 2017-11-27 19:31 | Diagnostic Imaging Report ---
INDICATION: Cough. COMPARISON: None available. FINDINGS: Heart is enlarged. There are increased interstitial markings within the mid and lower lung zones. No pleural effusion. No dense pulmonary consolidation. No pneumothorax. IMPRESSION: Cardiomegaly with interstitial opacities that could relate to early interstitial pulmonary edema in the appropriate setting. However, these could be chronic in nature and may represent atelectasis or scar. Dictated by: Dictated on workstation # [id number]
--- NOTE | 2017-11-27 19:51 | Diagnostic Imaging Report ---
PROCEDURE: CT abdomen and pelvis with contrast. TECHNIQUE: Multiple contiguous axial images were obtained through the abdomen and pelvis after administration of intravenous contrast. INDICATION: Mid and lower abdominal pain for 3 weeks FINDINGS: The lung bases are clear. There is fatty infiltration of the liver. The gallbladder is present and unremarkable. The pancreas appears normal. The spleen is not enlarged. Adrenals are normal. Kidneys appear normal. There is an umbilical hernia containing fat. Small bowel is not dilated. There is a large amount of stool in the ascending and transverse colon. Urinary bladder is normal. Prostate is not enlarged. There is no intraperitoneal free air or free fluid. The appendix is not seen. IMPRESSION: Umbilical hernia containing fat. No acute abnormality is seen in the abdomen. Dictated by: Dictated on workstation # [id number]
[2017-11-27] MEDS ORDERED: SULF1TAB35 PO (19:59)
[2017-11-27] MEDS ORDERED: ORPHENADRINE 60 MG/2 ML (NORFLEX) AMP IV ONE (20:00)
[2017-11-27 20:26] VITALS: BP 168/101
== END 2017-11-27 20:32 | disposition home or self-care (01) ==
LOC: EDUNIT# 18:06 → ER 18:07
DX: K42.9 Umbilical hernia without obstruction or gangrene (principal); R00.0 Tachycardia, unspecified; K59.00 Constipation, unspecified; E11.9 Type 2 diabetes mellitus without complications; J44.9 Chronic obstructive pulmonary disease, unspecified; I10 Essential (primary) hypertension; F14.10 Cocaine abuse, uncomplicated; F15.10 Other stimulant abuse, uncomplicated; F12.10 Cannabis abuse, uncomplicated; F17.210 Nicotine dependence, cigarettes, uncomplicated; Z87.19 Personal history of other diseases of the digestive system; Z79.84 Long term (current) use of oral hypoglycemic drugs; Z87.442 Personal history of urinary calculi
CPT/HCPCS: 36415; 71045; 74177; 80053; 80306; 80320; 81000; 82150; 82550; 82553; 82962; 83690; 83735; 83880; 84443; 84484; 85025; 85610; 85730; 93005; 93041; 96374; 96375

== ENCOUNTER 2018-05-12 02:35 | Emergency (ER) | payer SELFPAY ==
[~2018-05-12] VITALS: Ht 185.4 cm; Wt 127.5 kg
[~2018-05-12 02:35] MED LIST changes: -KETO75CA PO; +KETO75CA11 PO; -METF1000 PO; +METF10002 PO
[2018-05-12] MEDS ORDERED: fentaNYL INJECTION 100 MCG/2 ML AMP IVP STA (02:56)
[2018-05-12] MEDS ORDERED: KETOROLAC 30 MG/ML VIAL IVP STA (02:56)
[2018-05-12] MEDS ORDERED: NS IV 1000 ML 1,000 ML IV ONE (02:56)
[2018-05-12 03:11] LABS: BASOPHILS # (AUTO) 0.1 10^3/uL (0.0-0.1); BASOPHILS % (AUTO) 1 % (0-10); EOSINOPHILS # (AUTO) 0.1 10^3/uL (0.0-0.3); EOSINOPHILS % (AUTO) 1 % (0-10); HEMATOCRIT 44 % (40-54); HEMOGLOBIN 15.4 G/DL (13.3-17.7); LYMPHOCYTES # (AUTO) 3.4 X 10^3 (1.0-4.0); LYMPHOCYTES % (AUTO) 34 % (12-44); MEAN CORPUSCULAR HEMOGLOBIN 30 PG (25-34); MEAN CORPUSCULAR HGB CONC 35 G/DL (32-36); MEAN CORPUSCULAR VOLUME 85 FL (80-99); MEAN PLATELET VOLUME 9.5 FL (7.4-10.4); MONOCYTES # (AUTO) 0.6 X 10^3 (0.0-1.0); MONOCYTES % (AUTO) 6 % (0-12); NEUTROPHILS % (AUTO) 59 % (42-75); PLATELET COUNT 483 10^3/uL (130-400); RED BLOOD COUNT 5.19 10^6/uL (4.35-5.85); RED CELL DISTRIBUTION WIDTH 12.7 % (10.0-14.5); WHITE BLOOD COUNT 10.2 10^3/uL (4.3-11.0)
[2018-05-12 03:15] LABS: BILIRUBIN,URINE NEGATIVE (NEGATIVE); CLARITY,URINE CLEAR; COLOR,URINE YELLOW; GLUCOSE, URINE (UA) 4+ (NEGATIVE); KETONES,URINE NEGATIVE (NEGATIVE); LEUKOCYTE ESTERASE ,URINE NEGATIVE (NEGATIVE); NITRITE,URINE NEGATIVE (NEGATIVE); PH,URINE 6 (5-9); PROTEIN,URINE NEGATIVE (NEGATIVE); UROBILINOGEN,URINE NORMAL (NORMAL)
--- NOTE | 2018-05-12 03:25 | ED GU-Male ---
General Stated Complaint: SIDE PAIN POSS KIDNEY STONES Source: patient Exam Limitations: no limitations History of Present Illness Date Seen by Provider: May 12, 2018 Time Seen by Provider: 02:47 Initial Comments Here with report of right-sided right flank pain and right back pain. Concerned about kidney stones. States the pain radiates across his back. Recently has had an infection on an abscess that is currently being treated and he states that's actually much better. Does have history of kidney stones and states this feels Like that. He reports that he's had some difficulty sleeping last couple ninth. He was on pain medicine for this abscess in his not been on that for 3 nights now and that coincides with the difficulty in sleeping. This may be what that is about. Denies dysuria or diarrhea. Denies nausea or vomiting. Denies blood in his urine or stool. Timing/Duration: getting worse Severity/Quality: moderate Location: right flank Radiation: other (across the back) Activities at Onset: none Modifying Factors: Improves With Analgesics Associated Symptoms: No abdominal pain, No fever/chills; lower back pain; No nausea/vomiting, No urinary frequency Allergies and Home Medications Allergies Coded Allergies: No Known Drug Allergies (Unverified , 06/17/17) Home Medications Atenolol 25 Mg Tablet, Unknown Dose PO DAILY, (Reported) Atenolol 25 Mg Tablet, 25 MG PO DAILY Prescribed by: CHAITANYA HENDERSON on 07/31/17 1210 Glimepiride 1 Mg Tablet, 1 MG PO DAILY Prescribed by: CHAITANYA HENDERSON on 07/31/17 1210 Lisinopril 2.5 Mg Tablet, Unknown Dose PO DAILY, (Reported) Lisinopril 10 Mg Tablet, 10 MG PO DAILY Prescribed by: CHAITANYA HENDERSON on 07/31/17 1210 Metformin HCl 1,000 Mg Tablet, 1,000 MG PO BID Prescribed by: CHAITANYA HENDERSON on 07/31/17 1210 Sulfamethoxazole/Trimethoprim 1 Each Tablet, 1 EACH PO BID Prescribed by: HILARIA NEWBERRY on 11/27/171958 Patient Home Medication List Home Medication List Reviewed: Yes Review of Systems Constitutional: see HPI; No chills, No fever EENTM: no symptoms reported Respiratory: no symptoms reported Cardiovascular: no symptoms reported Gastrointestinal: no symptoms reported Genitourinary: see HPI; denies frequency; flank pain Musculoskeletal: back pain; No muscle pain Skin: no symptoms reported Psychiatric/Neurological: No Symptoms Reported All Other Systemes Reviewed Negative Unless Noted: Yes Past Hoadlxy-Ojuade-Jukcoc Hx Past Med/Social Hx: Reviewed Nursing Past Med/Soc Hx Patient Social History Alcohol Use: Denies Use Recreational Drug Use: No Drug of Choice: COCAINE/CRACK & EX- TESTED + FOR METH/AMPHETAMINES AND OPIATES 11/27/17 Smoking Status: Current Everyday Smoker Type Used: Cigarettes 2nd Hand Smoke Exposure: Yes Recent Foreign Travel: No Contact w/Someone Who Travel: No Recent Hopitalizations: No Seasonal Allergies Seasonal Allergies: No Past Medical History Surgeries: Yes (CARDIAC CATH X 2--NO INTERVENTION) Respiratory: Yes COPD Cardiac: Yes Hypertension Neurological: No Genitourinary: Yes Kidney Stones Gastrointestinal: Yes (UMBILICAL HERNIA, NO REPAIR) Abdominal Hernia Musculoskeletal: Yes (ARTHRITIS IN HANDS/THUMBS) Arthritis, Chronic Back Pain Endocrine: Yes Diabetes, Non-Insulin dep HEENT: Yes Cataract Cancer: No Psychosocial: No Integumentary: No Family Medical History Reviewed Nursing Family Hx No Pertinent Family Hx Physical Exam Vital Signs Vital Signs - First Documented 05/12/18 03:02 Temp 99.9 Pulse 110 Resp 20 B/P (MAP) 165/107 (126) Pulse Ox 96 O2 Delivery Room Air Capillary Refill : Height, Weight, BMI Height: 6'1.00" Weight: 281lbs. 0oz. [phone]; BMI Method:Stated General Appearance: WD/WN, no apparent distress HEENT: PERRL/EOMI, pharynx normal Neck: full range of motion, supple Cardiovascular: regular rate, rhythm, no murmur Respiratory: lungs clear, normal breath sounds Gastrointestinal: non tender, soft Back: CVA tenderness (R); No CVA tenderness (L), No decreased range of motion, No muscle spasm, No vertebral tenderness Extremities: non-tender, normal inspection Neurologic/Psychiatric: alert, oriented x 3 Skin: normal color, warm/dry Progress/Results/Core Measures Suspected Sepsis SIRS Temperature: Pulse: Respiratory Rate: Laboratory Tests 05/12/18 03:02: White Blood Count 10.2 Blood Pressure / Mean: Laboratory Tests 05/12/18 03:02: Creatinine 0.85, Platelet Count 483H, Total Bilirubin 0.3 Results/Orders Lab Results Laboratory Tests Test 05/12/18 03:02 05/12/18 03:05 Range/Units White Blood Count 10.2 4.3-11.0 10^3/uL Red Blood Count 5.19 4.35-5.85 10^6/uL Hemoglobin 15.4 13.3-17.7 G/DL Hematocrit 44 40-54 % Mean Corpuscular Volume 85 80-99 FL Mean Corpuscular Hemoglobin 30 25-34 PG Mean Corpuscular Hemoglobin Concent 35 32-36 G/DL Red Cell Distribution Width 12.7 10.0-14.5 % Platelet Count 483 H 130-400 10^3/uL Mean Platelet Volume 9.5 7.4-10.4 FL Neutrophils (%) (Auto) 59 42-75 % Lymphocytes (%) (Auto) 34 12-44 % Monocytes (%) (Auto) 6 0-12 % Eosinophils (%) (Auto) 1 0-10 % Basophils (%) (Auto) 1 0-10 % Neutrophils # (Auto) 6.0 1.8-7.8 X 10^3 Lymphocytes # (Auto) 3.4 1.0-4.0 X 10^3 Monocytes # (Auto) 0.6 0.0-1.0 X 10^3 Eosinophils # (Auto) 0.1 0.0-0.3 10^3/uL Basophils # (Auto) 0.1 0.0-0.1 10^3/uL Sodium Level 133 L 135-145 MMOL/L Potassium Level 4.1 3.6-5.0 MMOL/L Chloride Level 100 98-107 MMOL/L Carbon Dioxide Level 22 21-32 MMOL/L Anion Gap 11 5-14 MMOL/L Blood Urea Nitrogen 14 7-18 MG/DL Creatinine 0.85 0.60-1.30 MG/DL Estimat Glomerular Filtration Rate > 60 BUN/Creatinine Ratio 16 Glucose Level 390 H 70-105 MG/DL Calcium Level 9.5 8.5-10.1 MG/DL Total Bilirubin 0.3 0.1-1.0 MG/DL Aspartate Amino Transf (AST/SGOT) 15 5-34 U/L Alanine Aminotransferase (ALT/SGPT) 37 0-55 U/L Alkaline Phosphatase 138 H 40-136 U/L Total Protein 7.6 6.4-8.2 GM/DL Albumin 4.0 3.2-4.5 GM/DL Urine Color YELLOW Urine Clarity CLEAR Urine pH 6 5-9 Urine Specific [place] 1.015 L 1.016-1.022 Urine Protein NEGATIVE NEGATIVE Urine Glucose (UA) 4+ H NEGATIVE Urine Ketones NEGATIVE NEGATIVE Urine Nitrite NEGATIVE NEGATIVE Urine Bilirubin NEGATIVE NEGATIVE Urine Urobilinogen NORMAL NORMAL MG/DL Urine Leukocyte Esterase NEGATIVE NEGATIVE Urine RBC (Auto) NEGATIVE NEGATIVE Urine RBC NONE /HPF Urine WBC NONE /HPF Urine Squamous Epithelial Cells RARE /HPF Urine Crystals NONE /LPF Urine Bacteria NEGATIVE /HPF Urine Casts NONE /LPF Urine Mucus NEGATIVE /LPF Urine Culture Indicated NO My Orders Orders - TIMI CRAVEN MD Cbc With Automated Diff (05/12/18 02:56) Comprehensive Metabolic Panel (05/12/18 02:56) Ua Culture If Indicated (05/12/18 02:56) Ct Abd/Pelvis Wo(Kidney Stone) (05/12/18 02:56) Saline Lock/Iv-Start (05/12/18 02:56) Ns Iv 1000 Ml (Sodium Chloride 0.9%) (05/12/18 02:56) Fentanyl Injection (Sublimaze Injection (05/12/18 02:56) Ketorolac Injection (Toradol Injection) (05/12/18 02:56) Insulin (Regular) Human (Humulin R (Per (05/12/18 03:39) Medications Given in ED Current Medications Medications Dose Ordered Sig/Bushra Route Start Time Stop Time Status Last Admin Dose Admin Sodium Chloride 1,000 ml @ 0 mls/hr Q0M ONCE IV 05/12/18 02:56 05/12/18 02:59 DC 05/12/18 03:00 1,000 MLS/HR Vital Signs/I&O 05/12/18 03:02 Temp 99.9 Pulse 110 Resp 20 B/P (MAP) 165/107 (126) Pulse Ox 96 O2 Delivery Room Air Capillary Refill : Progress Note : Progress Note Seen and evaluated. IV, labs and UA ordered. Normal saline 1 L bolus. Toradol 30 mg IV and fentanyl [address] abdomen and pelvis kidney stone protocol ordered. Monitor patient. 0425: Patient is feeling much better. CT does not reveal any significant findings. Patient did receive 10 units of insulin IV for blood sugar at 400. Pain is a be exacerbation of chronic pain after coming off pain medicine. I did discuss this with the patient he agrees. He will continue ibuprofen and/or Tylenol and follow-up with his doctor regarding the blood sugars. It does appear that his oral agents are failing and he may need insulin. This was discussed with the patient. Discharged home with return precautions. Patient verbalize understanding instructions and agreement with plan. Diagnostic Imaging Diagonstic Imaging: CT Plain Films/CT/US/NM/MRI: abdomen, pelvis Comments There is not renal or ureteral stone or stone fragment and there is not abnormal dilation or inflammation or other secondary CT findings to suggest passage recently of stone or stone fragment. Discrete acute abdominal or pelvic pathology is not otherwise apparent. Reviewed: Reviewed [place] Study, Reviewed by Me Departure Impression Primary Impression: Back pain Qualified Codes: M54.6 - Pain in thoracic spine Additional Impression: Uncontrolled diabetes mellitus with hyperglycemia Qualified Codes: E11.65 - Type 2 diabetes mellitus with hyperglycemia Disposition: HOME, SELF-CARE Condition: Improved Departure-Patient Inst. Decision time for Depature: 04:33 Referrals: SAMUEL MOREAU MD (PCP/Family) Primary Care Physician Patient Instructions: Hyperglycemia, Adult (DC), Low Back Pain (DC) Add. Discharge Instructions: You may take ibuprofen 800 mg every 8 hours as needed for pain. You may take Tylenol/acetaminophen 1000 mg every 8 hours as needed for pain. Follow up with your doctor this week for recheck and further evaluation and to discuss your blood sugars as they are not well controlled with your current regimen. Drink plenty of fluids. Return for worse pain, fever, vomiting, weakness, breathing problems or other concerns as needed. Copy Copies To 1: SAMUEL MOREAU MD, TIMOTHY D MD May 12, 2018 03:25
[2018-05-12 03:28] LABS: ALANINE AMINOTRANSFERASE 37 U/L (0-55); ALKALINE PHOSPHATASE 138 U/L (40-136); BILIRUBIN,TOTAL 0.3 MG/DL (0.1-1.0); BUN/CREATININE RATIO 16; CALCIUM 9.5 MG/DL (8.5-10.1); CARBON DIOXIDE 22 MMOL/L (21-32); CHLORIDE 100 MMOL/L (98-107); CREATININE SERUM 0.85 MG/DL (0.60-1.30); GFR ESTIMATED > 60; GLUCOSE 390 MG/DL (70-105); POTASSIUM 4.1 MMOL/L (3.6-5.0); SODIUM 133 MMOL/L (135-145); TOTAL PROTEIN 7.6 GM/DL (6.4-8.2)
[2018-05-12 03:29] LABS: BACTERIA,URINE NEGATIVE /HPF; SQUAMOUS EPITHELIAL CELL,UR RARE /HPF
[2018-05-12] MEDS ORDERED: inSUlin (REGULAR) HUMAN 1 UNIT/0.01 ML (CHARGE PER UNIT) IV STA (03:39)
[2018-05-12 04:40] VITALS: BP 165/107
--- NOTE | 2018-05-12 06:56 | Diagnostic Imaging Report ---
PROCEDURE: CT urinary tract, rule out kidney stone. TECHNIQUE: Multiple contiguous axial images were obtained through the abdomen and pelvis without the use of intravenous contrast. INDICATION: RIght-sided flank pain with radiation to the left. CORRELATION STUDY: 11/27/2017 FINDINGS: LOWER THORAX: Clear. LIVER: Enlarged with prominent diffuse hepatic steatosis. GALLBLADDER: Present and unremarkable. No bile duct dilatation. SPLEEN: Unremarkable. PANCREAS: Unremarkable. ADRENAL GLANDS: Unremarkable. KIDNEYS: Somewhat lobulated appearance about the renal parenchyma. No definitive calcification or findings to suggest obstructive uropathy. No ureteral calcification. Calcified phleboliths within the hemipelvis. ABDOMINAL AORTA: Mild wall calcification, nonaneurysmal. GASTROINTESTINAL TRACT: No obstruction or inflammation. Normal appendix. Fat-containing umbilical hernia at 3 cm in size. No bowel involvement or inflammation. A few colonic diverticuli without evidence for acute diverticulitis. URINARY BLADDER: Decompressed. REPRODUCTIVE: Prostate gland very mildly prominent calcifications present. OSSEOUS STRUCTURES: Hypertrophic changes of the facet joints are present. No acute bony abnormality. OTHER: None. IMPRESSION: 1. Negative for nephroureterolithiasis or obstructive uropathy. 2. Hepatomegaly with hepatic steatosis. A preliminary report was provided by [employer]. Dictated by: Dictated on workstation # [id number]
--- OUTSIDE RECORDS SUMMARY | 2018-05-13 09:32 | XMS REPORT ---
Author Author AHMET ENRIQUE [facility] Address [address] [place] [address] Care Team Providers Care Lockstitch Front Edge Tape Sewer Name Role Phone AHMET ENRIQUE Unavailable PROBLEMS Type Condition ICD9-CM Code [id number] Code Onset Dates Condition Status SNOMED Code Problem Primary osteoarthritis, right hand M19.041 Active 5151894491351669 Problem Obstructive sleep apnea (adult) (pediatric) G47.33 Active 42867483 Problem Type 2 diabetes mellitus without complication, without long-term current use of insulin E11.9 Active 887226286 Problem Abnormal glucose R73.09 Active 218822303 Problem 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 Active 81840903 Problem Low back pain M54.5 Active 580938614 Problem Essential hypertension I10 Active 33405129 Problem Coronary artery disease involving [place] coronary artery of [place] heart without angina pectoris I25.10 Active 4022828746600 Problem COPD, mild J44.9 Active 327350004 Problem Nocturnal hypoxemia G47.34 Active 149133584 Problem BRIA (obstructive sleep apnea) G47.33 Active 90005418 ALLERGIES No Information ENCOUNTERS Encounter Location Date Diagnosis [place] [address] [place] [address]97[address] Nov, Osteoarthritis of carpometacarpal joints of both thumbs, unspecified osteoarthritis type M18.0 [place] [address] [place] [address] 62569- 4828 Oct, Primary osteoarthritis, right hand M19.041 [place] [address] [place] [id number] [place] [address] 3[address]- 9794 Oct, Sebaceous cyst L72.3 [place] [address] [place] [address] 60481- 6113 Sep, Primary osteoarthritis, right hand M19.041 ; Type 2 diabetes mellitus without complication, without long-term current use of insulin E11.9 ; 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 ; Essential hypertension I10 ; Coronary artery disease involving [place] coronary artery of [place] heart without angina pectoris I25.10 ; BRIA (obstructive sleep apnea) G47.33 ; COPD, mild J44.9 ; Non-healing skin lesion of nose L98.9 ; BMI 50.0- 59.9, adult Z68.43 and Encounter for immunization Z23 [place] [address] [address] Sep, Primary osteoarthritis, right hand M19.041 and 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 [place] [address] [address] Sep, Pain in right hand M79.641 and Pain of left hand M79.642 [place] [address] 53600[address] Sep, Pain in right hand M79.641 and Pain of left hand M79.642 [place] [address] [place] [id number] [place] [address] 65312- 8906 Aug, [place] [address] [place] [id number] [place] [address] 99160- 4423 Aug, [place] [address] [place] [id number] [place] [address] 30619- 0559 Aug, Type 2 diabetes mellitus without complication, without long- term current use of insulin E11.9 ; Essential hypertension I10 ; Coronary artery disease involving [place] coronary artery of [place] heart without angina pectoris I25.10 ; BRIA (obstructive sleep apnea) G47.33 ; Nocturnal hypoxemia G47.34 ; COPD, mild J44.9 ; Low back pain M54.5 and BMI 40.0-44.9, adult Z68.41 [place] [address] [place] [id number] [place] [address] 67944- 8568 Jul, IMMUNIZATIONS No Known Immunizations SOCIAL HISTORY Never Assessed REASON FOR VISIT Requests return call PLAN OF CARE VITAL SIGNS MEDICATIONS Medication Instructions Dosage Frequency Start Date End Date Duration Status Indomethacin 50 mg Orally Three times a day 1 capsule with food or milk 8h Aug, Active RESULTS No Results PROCEDURES No Known procedures INSTRUCTIONS MEDICATIONS ADMINISTERED No Known Medications MEDICAL (GENERAL) HISTORY Type Description Date Medical History type II diabetes- 2006 Medical History hypertension- 20 years Medical History heart attack 2011- 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 was on hydrocodone and morphine and then methadone at pain managment at [place] and then used hydrocodone from pain management 6 months ago Medical History chronic obstructive pulmonary disease (COPD)- used to use spiriva and advair and albuterol prn (last used several months) Medical History sleep apnea wears c-pap with oxygen 12 or 14 he thinks with 2 liters of oxygen Medical History Panic attacks with anxiety. Surgical History heart cath x2 Surgical History kidney stones Surgical History lithotripsy Surgical History bilateral toe nail surgery great toes Hospitalization History Surgery(s) only
--- OUTSIDE RECORDS SUMMARY | 2018-05-13 09:32 | XMS REPORT ---
Author Author AHMET ENRIQUE [facility] Address [address] [place] [address] Care Team Providers Care Hvac Operations Technician Name Role Phone AHMET ENRIQUE Unavailable PROBLEMS Type Condition ICD9-CM Code [id number] Code Onset Dates Condition Status SNOMED Code Problem Primary osteoarthritis, right hand M19.041 Active 9125097709316348 Problem Obstructive sleep apnea (adult) (pediatric) G47.33 Active 12043677 Problem Type 2 diabetes mellitus without complication, without long-term current use of insulin E11.9 Active 791754158 Problem Abnormal glucose R73.09 Active 722443143 Problem 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 Active 15971453 Problem Low back pain M54.5 Active 477302587 Problem Essential hypertension I10 Active 20958051 Problem Coronary artery disease involving [place] coronary artery of [place] heart without angina pectoris I25.10 Active 4196131806180 Problem COPD, mild J44.9 Active 318961883 Problem Nocturnal hypoxemia G47.34 Active 453056602 Problem BRIA (obstructive sleep apnea) G47.33 Active 84267982 ALLERGIES No Known Allergies ENCOUNTERS Encounter Location Date Diagnosis [place] [id number] [place] [address] 88577- 4475 Nov, Osteoarthritis of carpometacarpal joints of both thumbs, unspecified osteoarthritis type M18.0 [place] [address] [place] [id number] [place] [address] 67255- 9755 Oct, Primary osteoarthritis, right hand M19.041 [place] [address] [place] [id number] [place] [address] 64635- 4064 Oct, Sebaceous cyst L72.3 [place] [address] [place] [address] 25840- 1776 Sep, Primary osteoarthritis, right hand M19.041 ; Type 2 diabetes mellitus without complication, without long-term current use of insulin E11.9 ; 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 ; Essential hypertension I10 ; Coronary artery disease involving [place] coronary artery of [place] heart without angina pectoris I25.10 ; BRIA (obstructive sleep apnea) G47.33 ; COPD, mild J44.9 ; Non-healing skin lesion of nose L98.9 ; BMI 50.0- 59.9, adult Z68.43 and Encounter for immunization Z23 [place] [address] [address] Sep, Primary osteoarthritis, right hand M19.041 and 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 [place] [address] 15599- 3090 Sep, Pain in right hand M79.641 and Pain of left hand M79.642 [place] [address] 07711- 8005 Sep, Pain in right hand M79.641 and Pain of left hand M79.642 [place] [address] 31947- 7001 Aug, [place] [address] [place] [id number] [place] [address] 46979- 7719 Aug, [place] [address] [place] [id number] [place] [address] 19358- 1619 Aug, Type 2 diabetes mellitus without complication, without long- term current use of insulin E11.9 ; Essential hypertension I10 ; Coronary artery disease involving [place] coronary artery of [place] heart without angina pectoris I25.10 ; BRIA (obstructive sleep apnea) G47.33 ; Nocturnal hypoxemia G47.34 ; COPD, mild J44.9 ; Low back pain M54.5 and BMI 40.0-44.9, adult Z68.41 [place] [address] 02285- 2728 Jul, IMMUNIZATIONS Vaccine Route Administration Date Status TDAP (BOOSTRIX) IM Intramuscular Oct 17, 2017 Administered SOCIAL HISTORY Never Assessed REASON FOR VISIT Pain (acute)--CarleyleachMA, Joint pain between thumbs and wrist PLAN OF CARE Activity Details Follow Up 6 Weeks Reason:pain DM VITAL SIGNS Height 63 in 2017-10-17 Weight 282.4 lbs 2017-10-17 Temperature 98.2 degrees Fahrenheit 2017-10-17 Heart Rate 110 bpm 2017-10-17 Respiratory Rate 20 2017-10-17 BMI 50.02 kg/m2 2017-10-17 Blood pressure systolic 132 mmHg 2017-10-17 Blood pressure diastolic 104 mmHg 2017-10-17 MEDICATIONS Medication Instructions Dosage Frequency Start Date End Date Duration Status Atenolol 25 MG Orally twice a day 1 tablet 12h 90 days Active Lisinopril 10 mg Orally Once a day 1 tablet 24h 90 days Active Indomethacin 50 mg Orally Three times a day 1 capsule with food or milk 8h Active Metformin HCl 1000 MG Orally Twice a day 1 tablet with meals 12h 30 days Active Incruse Ellipta 62.5 MCG/INH Inhalation Once a day 1 puff 24h Aug, Active Gabapentin 300 MG Orally Once a day at hs x 7 days then 1 bid 1 capsule before bedtime Sep, Active Glimepiride 1 MG Orally Once a day 1 tablet with breakfast or the first main meal of the day 24h 90 days Active PredniSONE 20 mg Orally Once a day 2 tablets 24h Sep, Sep, 05 days Active RESULTS No Results PROCEDURES Procedure Date Ordered Result Body Site TDAP (BOOSTRIX) Oct 17, 2017 SINGLE IMMUNIZATION ADMIN Oct 17, 2017 INSTRUCTIONS MEDICATIONS ADMINISTERED No Known Medications MEDICAL (GENERAL) HISTORY Type Description Date Medical History type II diabetes- 2006 Medical History hypertension- 20 years Medical 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 was on hydrocodone and morphine and then methadone at pain managment at [place] and then used hydrocodone from pain management [...]
--- OUTSIDE RECORDS SUMMARY | 2018-05-13 09:32 | XMS REPORT ---
Author Author AHMET ENRIQUE [facility] Address [address] [place] [address] Care Team Providers Care Product Marketing Intern Name Role Phone AHMET ENRIQUE Unavailable PROBLEMS Type Condition ICD9-CM Code [id number] Code Onset Dates Condition Status SNOMED Code Problem Primary osteoarthritis, right hand M19.041 Active 1064890822208141 Problem Obstructive sleep apnea (adult) (pediatric) G47.33 Active 46410298 Problem Type 2 diabetes mellitus without complication, without long-term current use of insulin E11.9 Active 896187665 Problem Abnormal glucose R73.09 Active 316734453 Problem 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 Active 91660978 Problem Low back pain M54.5 Active 478884481 Problem Essential hypertension I10 Active 28858797 Problem Coronary artery disease involving [place] coronary artery of [place] heart without angina pectoris I25.10 Active 1324275102931 Problem COPD, mild J44.9 Active 659373118 Problem Nocturnal hypoxemia G47.34 Active 331537393 Problem BRIA (obstructive sleep apnea) G47.33 Active 56319137 ALLERGIES No Known Allergies ENCOUNTERS Encounter Location Date Diagnosis [place] [id number] [place] [address] 81699- 5035 Nov, Osteoarthritis of carpometacarpal joints of both thumbs, unspecified osteoarthritis type M18.0 [place] [address] [place] [id number] [place] [address] 45816- 0733 Oct, Primary osteoarthritis, right hand M19.041 [place] [address] [address] [place] [id number] [place] [address] 04276- 0582 Oct, Sebaceous cyst L72.3 [place] [address] [place] [address] 94949- 3658 Sep, Primary osteoarthritis, right hand M19.041 ; Type 2 diabetes mellitus without complication, without long-term current use of insulin E11.9 ; 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 ; Essential hypertension I10 ; Coronary artery disease involving [place] coronary artery of [place] heart without angina pectoris I25.10 ; BRIA (obstructive sleep apnea) G47.33 ; COPD, mild J44.9 ; Non-healing skin lesion of nose L98.9 ; BMI 50.0- 59.9, adult Z68.43 and Encounter for immunization Z23 [place] [address] 56860- [address]49 Sep, Primary osteoarthritis, right hand M19.041 and 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 [place] [address] 81832- 0695 Sep, Pain in right hand M79.641 and Pain of left hand M79.642 [place] [address] 38589- 1363 Sep, Pain in right hand M79.641 and Pain of left hand M79.642 [place] [address] [place] [id number] [place] [address] 32647- 8617 Aug, [place] [address] [place] [id number] [place] [address] 25501- 4156 Aug, [place] [address] [place] [id number] [place] [address] 67133- 3862 Aug, Type 2 diabetes mellitus without complication, without long- term current use of insulin E11.9 ; Essential hypertension I10 ; Coronary artery disease involving [place] coronary artery of [place] heart without angina pectoris I25.10 ; BRIA (obstructive sleep apnea) G47.33 ; Nocturnal hypoxemia G47.34 ; COPD, mild J44.9 ; Low back pain M54.5 and BMI 40.0-44.9, adult Z68.41 [place] [address] [place] [id number] [place] [address] 15410- 0515 Jul, IMMUNIZATIONS No Known Immunizations SOCIAL HISTORY Never Assessed REASON FOR VISIT Establish Care- previously saw lucina jones with [facility] in [facility], Just wants to discuss his current healthcare PLAN OF CARE Activity Details Follow Up 3 months or as indicated by lab Reason:dm VITAL SIGNS Height 63 in 2017-08-29 Weight 278.5 lbs 2017-08-29 Temperature 98.0 degrees Fahrenheit 2017-08-29 Heart Rate 114 bpm 2017-08-29 Respiratory Rate 20 2017-08-29 Oximetry 98 % 2017-08-29 BMI 49.33 kg/m2 2017-08-29 Blood pressure systolic 142 mmHg 2017-08-29 Blood pressure diastolic 94 mmHg 2017-08-29 MEDICATIONS Medication Instructions Dosage Frequency Start Date End Date Duration Status Metformin HCl 1000 MG Orally Twice a day 1 tablet with meals 12h 30 days Active Incruse Ellipta 62.5 MCG/INH Inhalation Once a day 1 puff 24h Aug, Active Lisinopril 10 mg Orally Once a day 1 tablet 24h 90 days Active Atenolol 25 MG Orally Once a day 1 tablet 24h 90 days Active Glimepiride 1 MG Orally Once a day 1 tablet with breakfast or the first main meal of the day 24h 90 days Active RESULTS No Results PROCEDURES Procedure Date Ordered Result Body Site MEASURE BLOOD OXYGEN LEVEL Aug 29, 2017 GLYCATED HEMOGLOBIN TEST Aug 29, 2017 X-RAY EXAM OF LOWER SPINE Aug 29, 2017 VENIPUNCT, ROUTINE* Aug 29, 2017 ASSAY THYROID STIM HORMONE Aug 29, 2017 COMPREHEN METABOLIC PANEL Aug 29, 2017 LIPID PANEL Aug 29, 2017 MICROALBUMIN, SEMIQUANT Aug 29, 2017 INSTRUCTIONS MEDICATIONS ADMINISTERED No Known Medications MEDICAL (GENERAL) HISTORY Type Description Date Medical History type II diabetes- 2006 Medical History hypertension- 20 years Medical History heart attack 2011- no per diem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 was on hydrocodone and morphine and then methadone at pain managment at [facility] and then used hydrocodone from pain management [...]
--- OUTSIDE RECORDS SUMMARY | 2018-05-13 09:32 | XMS REPORT ---
Author Author AHMET ENRIQUE [facility] Address [address] [place] [address] Care Team Providers Care Taxicab Dispatcher Name Role Phone AHMET ENRIQUE Unavailable PROBLEMS Type Condition ICD9-CM Code [id number] Code Onset Dates Condition Status SNOMED Code Problem Primary osteoarthritis, right hand M19.041 Active 8922932593890978 Problem Obstructive sleep apnea (adult) (pediatric) G47.33 Active 71899970 Problem Type 2 diabetes mellitus without complication, without long-term current use of insulin E11.9 Active 408093831 Problem Abnormal glucose R73.09 Active 779884930 Problem 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 Active 38076090 Problem Low back pain M54.5 Active 765824586 Problem Essential hypertension I10 Active 46979759 Problem Coronary artery disease involving [place] coronary artery of [place] heart without angina pectoris I25.10 Active 3880049125420 Problem COPD, mild J44.9 Active 154415565 Problem Nocturnal hypoxemia G47.34 Active 480619564 Problem BRIA (obstructive sleep apnea) G47.33 Active 60426524 ALLERGIES No Information ENCOUNTERS Encounter Location Date Diagnosis [place] [address] [place] [address] 14511- 8607 Nov, Osteoarthritis of carpometacarpal joints of both thumbs, unspecified osteoarthritis type M18.0 [place] [address] [place] [address] 08867- 2306 Oct, Primary osteoarthritis, right hand M19.041 [place] [address] [place] [id number] [place] [address] 47855- 5215 Oct, Sebaceous cyst L72.3 [place] [address] [place] [address] 57727- 9407 Sep, Primary osteoarthritis, right hand M19.041 ; Type 2 diabetes mellitus without complication, without long-term current use of insulin E11.9 ; 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 ; Essential hypertension I10 ; Coronary artery disease involving [place] coronary artery of [place] heart without angina pectoris I25.10 ; BRIA (obstructive sleep apnea) G47.33 ; COPD, mild J44.9 ; Non-healing skin lesion of nose L98.9 ; BMI 50.0- 59.9, adult Z68.43 and Encounter for immunization Z23 [place] [address] 83[address]- [address] Sep, Primary osteoarthritis, right hand M19.041 and 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 [place] [address] 50083- 7830 Sep, Pain in right hand M79.641 and Pain of left hand M79.642 [place] [address] 23651- 3596 Sep, Pain in right hand M79.641 and Pain of left hand M79.642 [place] [address] [place] [id number] [place] [address] 79899- 1008 Aug, [place] [address] [place] [id number] [place] [address] 04976- 6972 Aug, [place] [address] [place] [id number] [place] [address] 02268- 9181 Aug, Type 2 diabetes mellitus without complication, without long- term current use of insulin E11.9 ; Essential hypertension I10 ; Coronary artery disease involving [place] coronary artery of [place] heart without angina pectoris I25.10 ; BRIA (obstructive sleep apnea) G47.33 ; Nocturnal hypoxemia G47.34 ; COPD, mild J44.9 ; Low back pain M54.5 and BMI 40.0-44.9, adult Z68.41 [place] [address] [place] [id number] [place] [address] 13668- 7983 Jul, IMMUNIZATIONS No Known Immunizations SOCIAL HISTORY Never Assessed REASON FOR VISIT Requests return call PLAN OF CARE VITAL SIGNS MEDICATIONS Unknown Medications RESULTS No Results PROCEDURES Procedure Date Ordered Result Body Site X-RAY EXAM OF HAND Oct 02, 2017 INSTRUCTIONS MEDICATIONS ADMINISTERED No Known Medications MEDICAL (GENERAL) HISTORY Type Description Date Medical History type II diabetes- 2006 Medical History hypertension- 20 years 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 was on hydrocodone and morphine and then methadone at pain managment at [place] and then used hydrocodone from pain management [...]
--- OUTSIDE RECORDS SUMMARY | 2018-05-13 09:32 | XMS REPORT ---
Author Author AHMET ENRIQUE [facility] Address [address] [place] [address] Care Team Providers Care Junior Art Director Name Role Phone AHMET ENRIQUE Unavailable PROBLEMS Type Condition ICD9-CM Code [id number] Code Onset Dates Condition Status SNOMED Code Problem Primary osteoarthritis, right hand M19.041 Active 8658915989241063 Problem Obstructive sleep apnea (adult) (pediatric) G47.33 Active 15158063 Problem Type 2 diabetes mellitus without complication, without long-term current use of insulin E11.9 Active 714556662 Problem Abnormal glucose R73.09 Active 408771548 Problem 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 Active 94238346 Problem Low back pain M54.5 Active 781731616 Problem Essential hypertension I10 Active 90698599 Problem Coronary artery disease involving [place] coronary artery of [place] heart without angina pectoris I25.10 Active 7074356412493 Problem COPD, mild J44.9 Active 178938556 Problem Nocturnal hypoxemia G47.34 Active 244061092 Problem BRIA (obstructive sleep apnea) G47.33 Active 77973873 ALLERGIES No Information ENCOUNTERS Encounter Location Date Diagnosis [place] [address] [place] [address] 71010- [address]88 Nov, Osteoarthritis of carpometacarpal joints of both thumbs, unspecified osteoarthritis type M18.0 [place] [address] [place] [address] 27979- 9099 Oct, Primary osteoarthritis, right hand M19.041 [place] [address] [place] [id number] [place] [address] 76568- 8558 Oct, Sebaceous cyst L72.3 [place] [address] [place] [address] 49463- 7287 Sep, Primary osteoarthritis, right hand M19.041 ; Type 2 diabetes mellitus without complication, without long-term current use of insulin E11.9 ; 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 ; Essential hypertension I10 ; Coronary artery disease involving [place] coronary artery of [place] heart without angina pectoris I25.10 ; BRIA (obstructive sleep apnea) G47.33 ; COPD, mild J44.9 ; Non-healing skin lesion of nose L98.9 ; BMI 50.0- 59.9, adult Z68.43 and Encounter for immunization Z23 [place] [address] 7[address]39- 8345 Sep, Primary osteoarthritis, right hand M19.041 and 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 [place] [address] 09285- 5208 Sep, Pain in right hand M79.641 and Pain of left hand M79.642 [place] [address] 81937- 5834 Sep, Pain in right hand M79.641 and Pain of left hand M79.642 [place] [address] [place] [id number] [place] [address] 62871- 8627 Aug, [place] [address] [place] [id number] [place] [address] 27536- 8621 Aug, [place] [address] [place] [id number] [place] [address] 81987- 3432 Aug, Type 2 diabetes mellitus without complication, without long- term current use of insulin E11.9 ; Essential hypertension I10 ; Coronary artery disease involving [place] coronary artery of [place] heart without angina pectoris I25.10 ; BRIA (obstructive sleep apnea) G47.33 ; Nocturnal hypoxemia G47.34 ; COPD, mild J44.9 ; Low back pain M54.5 and BMI 40.0-44.9, adult Z68.41 [place] [address] [place] [id number] [place] [address] 29342- 9425 Jul, IMMUNIZATIONS No Known Immunizations SOCIAL HISTORY Never Assessed REASON FOR VISIT Xray (walk-in) MHill RT(R) PLAN OF CARE VITAL SIGNS MEDICATIONS Unknown Medications RESULTS Name Result Date Reference Range Xray : Hand, Left 2 views (IN HOUSE) 2017-10-05 Xray : Hand, Right 2 views (IN HOUSE) 2017-10-05 PROCEDURES Procedure Date Ordered Result Body Site X-RAY EXAM OF HAND Oct 05, 2017 INSTRUCTIONS MEDICATIONS ADMINISTERED No Known Medications MEDICAL (GENERAL) HISTORY Type Description Date Medical History type II diabetes- 2006 Medical History hypertension- 20 years Medical 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 was on hydrocodone and morphine and then methadone at pain managment at [place] and then used hydrocodone from pain management [...]
--- OUTSIDE RECORDS SUMMARY | 2018-05-13 09:33 | XMS REPORT ---
Author Author AHMET ENRIQUE [facility] Address [address] [place] [address] Care Team Providers Care Sales And Leasing Agent Name Role Phone AHMET ENRIQUE Unavailable PROBLEMS Type Condition ICD9-CM Code [id number]-HC Code Onset Dates Condition Status SNOMED Code Problem Primary osteoarthritis, right hand M19.041 Active [id number] Problem Obstructive sleep apnea (adult) (pediatric) G47.33 Active 59575412 Problem Type 2 diabetes mellitus without complication, without long-term current use of insulin E11.9 Active 954476303 Problem Abnormal glucose R73.09 Active 088376071 Problem 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 Active 01021845 Problem Low back pain M54.5 Active 679791146 Problem Essential hypertension I10 Active 26391092 Problem Coronary artery disease involving [place] coronary artery of [place] heart without angina pectoris I25.10 Active 2785888154200 Problem COPD, mild J44.9 Active 911299739 Problem Nocturnal hypoxemia G47.34 Active 635844009 Problem BRIA (obstructive sleep apnea) G47.33 Active 32199526 ALLERGIES No Information ENCOUNTERS Encounter Location Date Diagnosis [place] [id number] [place] [address] 24814- 1755 Nov, Osteoarthritis of carpometacarpal joints of both thumbs, unspecified osteoarthritis type M18.0 [place] [address] [place] [address] 63415- 2417 Oct, Primary osteoarthritis, right hand M19.041 [place] [address] [place] [id number] [place] [address] 63325- 1856 Oct, Sebaceous cyst L72.3 [place] [address] [place] [address] 63689- 2307 Sep, Primary osteoarthritis, right hand M19.041 ; Type 2 diabetes mellitus without complication, without long-term current use of insulin E11.9 ; 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 ; Essential hypertension I10 ; Coronary artery disease involving [place] coronary artery of [place] heart without angina pectoris I25.10 ; BRIA (obstructive sleep apnea) G47.33 ; COPD, mild J44.9 ; Non-healing skin lesion of nose L98.9 ; BMI 50.0- 59.9, adult Z68.43 and Encounter for immunization Z23 [place] [address] 21009- 0484 Sep, Primary osteoarthritis, right hand M19.041 and 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 [place] [address] 41859- 3763 Sep, Pain in right hand M79.641 and Pain of left hand M79.642 [place] [address] 74747- 5446 Sep, Pain in right hand M79.641 and Pain of left hand M79.642 [place] [address] [place] [id number] [place] [address] 00000- 5062 Aug, [place] [address] [place] [id number] [place] [address] 94088- 9739 Aug, [place] [address] [place] [id number] [place] [address] 66996- 6832 Aug, Type 2 diabetes mellitus without complication, without long- term current use of insulin E11.9 ; Essential hypertension I10 ; Coronary artery disease involving [place] coronary artery of [place] heart without angina pectoris I25.10 ; BRIA (obstructive sleep apnea) G47.33 ; Nocturnal hypoxemia G47.34 ; COPD, mild J44.9 ; Low back pain M54.5 and BMI 40.0-44.9, adult Z68.41 [place] [address] [place] [id number] [place] [address] 87514- 2147 Jul, IMMUNIZATIONS No Known Immunizations SOCIAL HISTORY Never Assessed REASON FOR VISIT Refill request PLAN OF CARE VITAL SIGNS MEDICATIONS Medication Instructions Dosage Frequency Start Date End Date Duration Status Indomethacin 50 mg Orally Three times a day 1 capsule with food or milk 8h 30 days Active RESULTS No Results PROCEDURES No Known procedures INSTRUCTIONS MEDICATIONS ADMINISTERED No Known Medications MEDICAL (GENERAL) HISTORY Type Description Date Medical History type II diabetes- 2006 Medical History hypertension- 20 years Medical History heart attack 2011- 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 was on hydrocodone and morphine and then methadone at pain managment at [place] and then used hydrocodone from pain management [...]
--- OUTSIDE RECORDS SUMMARY | 2018-05-13 09:33 | XMS REPORT ---
Author Author AHMET ENRIQUE [facility] Address [address] [place] [address] Care Team Providers Care Cement Finisher Apprentice Name Role Phone AHMET ENRIQUE Unavailable PROBLEMS Type Condition ICD9-CM Code CJE43-JP Code Onset Dates Condition Status SNOMED Code Problem Primary osteoarthritis, right hand M19.041 Active 7013685462033313 Problem Obstructive sleep apnea (adult) (pediatric) G47.33 Active 70195658 Problem Type 2 diabetes mellitus without complication, without long-term current use of insulin E11.9 Active 511980407 Problem Abnormal glucose R73.09 Active 975991664 Problem 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 Active 98109613 Problem Low back pain M54.5 Active 102733895 Problem Essential hypertension I10 Active 08972609 Problem Coronary artery disease involving [place] coronary artery of [place] heart without angina pectoris I25.10 Active 1897686674136 Problem COPD, mild J44.9 Active 811586620 Problem Nocturnal hypoxemia G47.34 Active 162180479 Problem BRIA (obstructive sleep apnea) G47.33 Active 41990345 ALLERGIES No Known Allergies ENCOUNTERS Encounter Location Date Diagnosis [place] [address] [place] [address] 89979- 8883 Nov, Osteoarthritis of carpometacarpal joints of both thumbs, unspecified osteoarthritis type M18.0 [facility] [address] [place] [id number] [place] [address] 87080- 2742 Oct, Primary osteoarthritis, right hand M19.041 [place] [address] [place] [id number] [place] [address] 77864- 4638 Oct, Sebaceous cyst L72.3 [place] [address] [place] [address] 20670- 1973 Sep, Primary osteoarthritis, right hand M19.041 ; Type 2 diabetes mellitus without complication, without long-term current use of insulin E11.9 ; 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 ; Essential hypertension I10 ; Coronary artery disease involving [place] coronary artery of [place] heart without angina pectoris I25.10 ; BRIA (obstructive sleep apnea) G47.33 ; COPD, mild J44.9 ; Non-healing skin lesion of nose L98.9 ; BMI 50.0- 59.9, adult Z68.43 and Encounter for immunization Z23 [place] [address] 26516- 0844 Sep, Primary osteoarthritis, right hand M19.041 and 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 [place] [address] 13022- 5648 Sep, Pain in right hand M79.641 and Pain of left hand M79.642 [place] [address] 74527- 4190 Sep, Pain in right hand M79.641 and Pain of left hand M79.642 [place] [address] [place] [id number] [place] [address] 55982- 0075 Aug, [place] [address] [place] [id number] [place] [address] 77935- 0612 Aug, [place] [address] [place] [id number] [place] [address] 66312- 9800 Aug, Type 2 diabetes mellitus without complication, without long- term current use of insulin E11.9 ; Essential hypertension I10 ; Coronary artery disease involving [place] coronary artery of [place] heart without angina pectoris I25.10 ; BRIA (obstructive sleep apnea) G47.33 ; Nocturnal hypoxemia G47.34 ; COPD, mild J44.9 ; Low back pain M54.5 and BMI 40.0-44.9, adult Z68.41 [place] [address] [place] [id number] [place] [address] 42051- 1489 Jul, IMMUNIZATIONS No Known Immunizations SOCIAL HISTORY Never Assessed REASON FOR VISIT PMH obtained. Michael CUEVAS PLAN OF CARE VITAL SIGNS MEDICATIONS Medication Instructions Dosage Frequency Start Date End Date Duration Status Lisinopril 10 MG Orally Once a day 1 tablet 24h Active Glimepiride 1 MG Orally Once a day 1 tablet with breakfast or the first main meal of the day 24h Active Metformin HCl 1000 MG Orally Twice a day 1 tablet with meals 12h Active Atenolol 25 MG Orally Once a day 1 tablet 24h Active RESULTS No Results PROCEDURES No Known procedures INSTRUCTIONS MEDICATIONS ADMINISTERED No Known Medications MEDICAL (GENERAL) HISTORY Type Description Date Medical History type II diabetes- 2006 Medical History hypertension- 20 years Medical 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 was on hydrocodone and morphine and then methadone at pain managment at [place] and then used hydrocodone from pain management [...]
== END 2018-05-12 04:40 | disposition home or self-care (01) ==
LOC: EDUNIT# 02:35 → ER 02:38
DX: M54.6 Pain in thoracic spine (principal); E11.65 Type 2 diabetes mellitus with hyperglycemia; F17.210 Nicotine dependence, cigarettes, uncomplicated; J44.9 Chronic obstructive pulmonary disease, unspecified; I10 Essential (primary) hypertension; M19.041 Primary osteoarthritis, right hand; M19.042 Primary osteoarthritis, left hand; Z87.442 Personal history of urinary calculi; Z79.84 Long term (current) use of oral hypoglycemic drugs; Z87.19 Personal history of other diseases of the digestive system
CPT/HCPCS: 36415; 74176; 80053; 81000; 85025; 96361; 96374; 96375

== ENCOUNTER 2018-10-29 04:59 | Inpatient (IN) | payer SELFPAY ==
[2018-10-29] VITALS (7 sets, daily range): BP systolic 17–138; BP diastolic 78–100
[~2018-10-29] VITALS: Ht 185.4 cm; Wt 126.6 kg
[~2018-10-29 04:59] MED LIST changes: +METF-399 PO; -METF10002 PO
--- OUTSIDE RECORDS SUMMARY | 2018-10-29 05:05 | XMS REPORT ---
Author Author LE WILL [facility] Address [address] [place] [address] Care Team Providers Care Molecular Biology Director Name Role Phone WILLLE Unavailable PROBLEMS Type Condition ICD9-CM Code RFA62-VX Code Onset Dates Condition Status SNOMED Code Problem Coronary artery disease involving [place] coronary artery of [place] heart without angina pectoris I25.10 Active 5030743806452 Problem Nocturnal hypoxemia G47.34 Active 225350284 Problem BRIA (obstructive sleep apnea) G47.33 Active 61378760 Problem Panic attacks F41.0 Active 754282210 Problem Opioid use disorder, mild, abuse F11.10 Active 8727548 Problem Tobacco abuse Z72.0 Active 717188173 Problem Essential hypertension I10 Active 26173802 Problem Osteoarthritis of facet joint of lumbar spine M47.816 Active 611904021 Problem Tobacco abuse counseling Z71.6 Active 738780537 Problem Abnormal glucose R73.09 Active 726691468 Problem Type 2 diabetes mellitus without complication, without long-term current use of insulin E11.9 Active 036804113 Problem Low back pain M54.5 Active 564515053 Problem 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 Active 18327721 Problem Obstructive sleep apnea (adult) (pediatric) G47.33 Active 89537524 Problem Primary osteoarthritis, right hand M19.041 Active 4672844441923075 Problem COPD, mild J44.9 Active 128127031 ALLERGIES No Information ENCOUNTERS Encounter Location Date Diagnosis [facility] [address] [facility] [id number] [address] Sep, [facility] [address] [id number] [address]- 6467 Sep, [facility] [address] [facility] [id number], [place] [address]- [address]67 Aug, Opioid use disorder, mild, abuse F11.10 [place] [address] [place] [id number] [place] [address] 55063- 8223 Aug, Opioid use disorder, mild, abuse F11.10 [place] [address] [place] [id number]- 6325 Aug, Type 2 diabetes mellitus without complication, without long- term current use of insulin E11.9 [place] [address] 96748- 1490 Aug, Type 2 diabetes mellitus without complication, without long- term current use of insulin E11.9 ; Panic attacks F41.0 ; Essential hypertension I10 and BMI 45.0-49.9, adult Z68.42 [place] [address] [place] 150312- 1445 Aug, Opioid use disorder, mild, abuse F11.10 [place] [address] 75256- 7784 Aug, [place] [address] 41695- 6390 Aug, [place] [address] 98912- 7207 Aug, Opioid use disorder, mild, abuse F11.10 [place] [address] 06333- 4074 Aug, Opioid use disorder, mild, abuse F11.10 [place] [address] 74968- 2284 Aug, [facility] [address] 62550- 2593 Jul, Type 2 diabetes mellitus without complication, without long- term current use of insulin E11.9 [place] [address] 41228- 3135 Jul, [place] [address] [place] [id number]- 9177 Jul, Essential hypertension I10 ; Type 2 diabetes mellitus without complication, without long-term current use of insulin E11.9 and BMI 50.0-59.9, adult Z68.43 [facility] [address] [place] [id number] [place], [place] [address]- [address] Jul, BMI 50.0-59.9, adult Z68.43 and Opioid use disorder, mild, abuse F11.10 [facility] [address] 251541- 9841 Jul, [facility] [address] [place] 150317- 6567 Jul, Opioid use disorder, mild, abuse F11.10 [place] [address] [place] [id number]- 6762 Jul, Opioid use disorder, mild, abuse F11.10 [place] [address] 26114- 2645 Jul, Opioid use disorder, mild, abuse F11.10 [place] [address] 52439- 0137 Jul, [facility] [address] 26864- 0232 Jul, [facility] [address] [place] [id number] [place] [address] 06876- 8376 Jul, Opioid use disorder, mild, abuse F11.10 and BMI 50.0-59.9, adult Z68.43 [facility] [address] [place] [address] [place] [address]- [address]357 Jun, Opioid use disorder, mild, abuse F11.10 and BMI 50.0-59.9, adult Z68.43 [facility] [address] [place] [id number] [place] [address] 11968- 7013 Jun, [facility] [address] 96221- 1372 Jun, [facility] [address] [address]- 3895 Jun, [facility] [address] [place] [id number] [place] [address] 928875- 4443 Jun, Opioid use disorder, mild, abuse F11.10 [facility] [address] [place] [id number] [place] [address] 47258- 5000 20 Jun, 2018 [facility] [address] [place] [id number] [place] [address] 85863- 1297 19 Jun, 2018 Opioid use disorder, mild, abuse F11.10 [place] [address] [place] [address] [place] [address] 38889- 9531 18 Jun, 2018 BMI 45.0-49.9, adult Z68.42 and Opioid use disorder, mild, abuse F11.10 [facility] [address] [id number] [id number] Jun, [place] [address] [place] [address] 49757- 7605 Jun, [facility] [address] [place] [id number] [place] [address] 00592- 7949 Jun, [facility] [address] [id number] [id number] 05 Jun, 2018 Osteoarthritis of facet joint of lumbar spine M47.816 [place] [address] [address]- 0[address] May, [facility] [address] [id number] [id number] May, Essential hypertension I10 ; Type 2 diabetes mellitus without complication, without long-term current use of insulin E11.9 ; Osteoarthritis of facet joint of lumbar spine M47.816 ; Tobacco abuse Z72.0 ; Tobacco abuse counseling Z71.6 and BMI 45.0-49.9, adult Z68.42 [facility] [address] [place] [address] 90942- 2177 Nov, Osteoarthritis of carpometacarpal joints of both thumbs, unspecified osteoarthritis type M18.0 [place] [address] [place] [address] [place] [address] 65663- 6718 Oct, Primary osteoarthritis, right hand M19.041 [place] [address] 58839- 4526 Oct, Sebaceous cyst L72.3 [place] [address] 36702- 8441 Sep, Primary osteoarthritis, right hand M19.041 ; Type 2 diabetes mellitus without complication, without long-term current use of insulin E11.9 ; 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 ; Essential hypertension I10 ; Coronary artery disease involving [place] coronary artery of [place] heart without angina pectoris I25.10 ; BRIA (obstructive sleep apnea) G47.33 ; COPD, mild J44.9 ; Non-healing skin lesion of nose L98.9 ; BMI 50.0- 59.9, adult Z68.43 and Encounter for immunization Z23 [place] [address] 76528- 9518 Sep, Primary osteoarthritis, right hand M19.041 and 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 [place] [address] [place] [address] [place] [address] 07733- 2048 Sep, Pain in right hand M79.641 and Pain of left hand M79.642 [place] [address] [place] [address] [place] [address] 81749- 9776 Sep, Pain in right hand M79.641 and Pain of left hand M79.642 [place] [address] [place] [address] [place] [address] 16406- 7111 Aug, [place] [address] [place] [address] [place] [address] 54350- 3236 Aug, [place] [address] 01966- 2546 Aug, Type 2 diabetes mellitus without complication, without long- term current use of insulin E11.9 ; Essential hypertension I10 ; Coronary artery disease involving [place] coronary artery of [place] heart without angina pectoris I25.10 ; BRIA (obstructive sleep apnea) G47.33 ; Nocturnal hypoxemia G47.34 ; COPD, mild J44.9 ; Low back pain M54.5 and BMI 40.0-44.9, adult Z68.41 [facility] [address] [facility] [id number] [place] [address]- 2546 Jul, IMMUNIZATIONS No Known Immunizations SOCIAL HISTORY Never Assessed REASON FOR VISIT suboxone rx (09/28-10/11) PLAN OF CARE VITAL SIGNS MEDICATIONS Medication Instructions Dosage Frequency Start Date End Date Duration Status Suboxone 8-2 MG Sublingual 2 times a day 1 film under the tongue and allow to dissolve 12h 19 Jun, 2018 14 days Active RESULTS No Results PROCEDURES No Known procedures INSTRUCTIONS MEDICATIONS ADMINISTERED No Known Medications MEDICAL (GENERAL) HISTORY Type Description Date Medical History type II diabetes- 2006 Medical History hypertension- 20 years 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 was on hydrocodone and morphine and then methadone at pain managment at [place] and then used hydrocodone from pain management [...]
--- OUTSIDE RECORDS SUMMARY | 2018-10-29 05:05 | XMS REPORT ---
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 Name Role Phone EMERSON GAUTAM Unavailable PROBLEMS Type Condition ICD9-CM Code CXG23-WD Code Onset Dates Condition Status SNOMED Code Problem Coronary artery disease involving bishop paiute coronary artery of bishop paiute heart without angina pectoris I25.10 Active 5983601205489 Problem Nocturnal hypoxemia G47.34 Active 203507651 Problem BRIA (obstructive sleep apnea) G47.33 Active 37055522 Problem Panic attacks F41.0 Active 165269413 Problem Opioid use disorder, mild, abuse F11.10 Active 0399838 Problem Tobacco abuse Z72.0 Active 119828729 Problem Essential hypertension I10 Active 36695602 Problem Osteoarthritis of facet joint of lumbar spine M47.816 Active 295449305 Problem Tobacco abuse counseling Z71.6 Active 766304635 Problem Abnormal glucose R73.09 Active 868129837 Problem Type 2 diabetes mellitus without complication, without long-term current use of insulin E11.9 Active 753571001 Problem Low back pain M54.5 Active 043473977 Problem 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 [id number] [address] Aug, [facility] [address] [facility] [id number] [address] Aug, Type 2 diabetes mellitus without complication, without long- term current use of insulin E11.9 ; Panic attacks F41.0 ; Essential hypertension I10 and BMI 45.0-49.9, adult Z68.42 [place] [address] [place] [id number]- [address] Aug, Opioid use disorder, mild, abuse F11.10 [place] [address] [address] Aug, [place] [address] 335772- 5153 Aug, [place] [address] 338032- 4758 Aug, Opioid use disorder, mild, abuse F11.10 [place] [address] 05811- 9427 Aug, Opioid use disorder, mild, abuse F11.10 [place] [address] 80946- 3564 Aug, [place] [address] 78416- 7171 Jul, Type 2 diabetes mellitus without complication, without long- term current use of insulin E11.9 [place] [address] [place] [id number] [place] [address] 89504- 5328 Jul, [place] [address] [place] [id number]- 9914 Jul, Essential hypertension I10 ; Type 2 diabetes mellitus without complication, without long-term current use of insulin E11.9 and BMI 50.0-59.9, adult Z68.43 [place] [address] [place] [id number]- 4823 Jul, BMI 50.0-59.9, adult Z68.43 and Opioid use disorder, mild, abuse F11.10 [place] [address] [place] [id number] [place] [address] 99270- 1820 Jul, [place] [address] [address] Jul, Opioid use disorder, mild, abuse F11.10 [facility] [address] [id number] [place] [address] 97248- 3216 Jul, Opioid use disorder, mild, abuse F11.10 [facility] [address] [id number] [place] [address] 59901- 9146 Jul, Opioid use disorder, mild, abuse F11.10 [facility] [id number] [place] [address] 33146- 8781 Jul, [facility] [id number] [place] [address] 72390- 6203 Jul, [facility] [id number] [place] [address] 64477- 1393 Jul, Opioid use disorder, mild, abuse F11.10 and BMI 50.0-59.9, adult Z68.43 [facility] [address] [id number] [place] [address] 94603- 8513 Jun, Opioid use disorder, mild, abuse F11.10 and BMI 50.0-59.9, adult Z68.43 [facility] [address] [id number] [place] [address] 29421- 6571 Jun, [facility] [id number] [place] [address] 87768 2546 Jun, [facility] [id number] [place] [address] 75822 2546 Jun, [facility] [id number] [place] [address] 60599- 5697 Jun, Opioid use disorder, mild, abuse F11.10 [facility] [address] [place] [address] 55659- 9004 Jun, [facility] [address] [address] [id number] [place] [address] 35454- 4377 19 Jun, 2018 Opioid use disorder, mild, abuse F11.10 [place] [address] [place] [address] 51024- 4121 18 Jun, 2018 BMI 45.0-49.9, adult Z68.42 and Opioid use disorder, mild, abuse F11.10 [facility] [place] [address] [place] [address] AVE [id number] [place] [id number] 12 Jun, 2018 [place] [address] [place] [id number] [place] [address] 19308- 6287 Jun, [place] [address] [place] [id number] [place] [address] 89164- 7110 Jun, [facility] [address] [id number] [id number] 05 Jun, 2018 Osteoarthritis of facet joint of lumbar spine M47.816 [place] [address] [place] [id number] [place] [address] 60613- 4627 May, [address] [id number] [id number] May, Essential hypertension I10 ; Type 2 diabetes mellitus without complication, without long-term current use of insulin E11.9 ; Osteoarthritis of facet joint of lumbar spine M47.816 ; Tobacco abuse Z72.0 ; Tobacco abuse counseling Z71.6 and BMI 45.0-49.9, adult Z68.42 [place] [address] [place] [id number] [place] [address] 08569- 7050 Nov, Osteoarthritis of carpometacarpal joints of both thumbs, unspecified osteoarthritis type M18.0 [place] [address] [place] [id number] [place] [address] 81413- 5063 Oct, Primary osteoarthritis, right hand M19.041 [place] [address] [place] [id number] [place] [address] 29627- 2834 Oct, Sebaceous cyst L72.3 [place] [address] [place] [id number] [place] [address] 04880- 4911 Sep, Primary osteoarthritis, right hand M19.041 ; Type 2 diabetes mellitus without complication, without long-term current use of insulin E11.9 ; 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 ; Essential hypertension I10 ; Coronary artery disease involving bishop [place] coronary artery of bishop [place] heart without angina pectoris I25.10 ; BRIA (obstructive sleep apnea) G47.33 ; COPD, mild J44.9 ; Non-healing skin lesion of nose L98.9 ; BMI 50.0- 59.9, adult Z68.43 and Encounter for immunization Z23 [place] [address] [place] [id number] [place] [address] 86093- 7288 Sep, Primary osteoarthritis, right hand M19.041 and 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 [place] [address] [place] [id number] [place] [address] 88453- 2354 Sep, Pain in right hand M79.641 and Pain of left hand M79.642 [place] [address] 78009- 5546 Sep, Pain in right hand M79.641 and Pain of left hand M79.642 [place] [address] 90100- 0722 Aug, [place] [address] [place] [id number] [place] [address] 77472- 5901 Aug, [place] [address] [place] [id number] [place] [address] 52380- 6351 Aug, Type 2 diabetes mellitus without complication, without long- term current use of insulin E11.9 ; Essential hypertension I10 ; Coronary artery disease involving bishop [place] coronary artery of bishop [place] heart without angina pectoris I25.10 ; BRIA (obstructive sleep apnea) G47.33 ; Nocturnal hypoxemia G47.34 ; COPD, mild J44.9 ; Low back pain M54.5 and BMI 40.0-44.9, adult Z68.41 [place] [address] [place] [id number] [place] [address] 77328- 1161 30 Jul, 2017 IMMUNIZATIONS No Known Immunizations SOCIAL HISTORY Never Assessed REASON FOR VISIT Diabetes-twooden,RMA, A1C done in visit PLAN OF CARE Activity Details Follow Up 3 Months Reason: Pending Test LIPID PANEL Pending Test CMP VITAL SIGNS Height 63 in 2018-09-17 Weight 280.6 lbs 2018-09-17 Temperature 97.7 degrees Fahrenheit 2018-09-17 Heart Rate 70 bpm 2018-09-17 Respiratory Rate 20 2018-09-17 Oximetry on room air:97 % 2018-09-17 BMI 49.70 kg/m2 2018-09-17 Blood pressure systolic 170 mmHg 2018-09-17 Blood pressure diastolic 92 mmHg 2018-09-17 MEDICATIONS Medication Instructions Dosage Frequency Start Date End Date Duration Status Gabapentin 400 mg Orally 3 times a day 1 capsule 8h May, Active Ibuprofen 200 mg Orally twice a day 4 tablets with food or milk as needed 12h Active Aspir-81 81 MG Orally Once a day 1 tablet 24h May, May, 90 days Active Lisinopril 10 mg Orally Once a day 1 tablet 24h 90 days Active MetFORMIN HCl ER 500 mg Orally Once a day 1 tablet with evening meal 24h Aug, 30 day(s) Active Melatonin 3 MG Orally Once a day 3 tablets at bedtime as needed with food 24h Active Glimepiride 1 MG Orally Once a day 1 tablet with breakfast or the first main meal of the day 24h Aug, 30 day(s) Active Suboxone 8-2 MG Sublingual 2 times a day 1 film under the tongue and allow to dissolve 12h Jun, 14 days Active Atenolol 50 MG Orally Once a day 1 tablet 24h 90 days Active RESULTS Name Result Date Reference Range A1C (IN HOUSE) 2018-09-17 A1C IN HOUSE 11.5 4.3 - 5.6 % Previous A1c 9.6 Lot [id number] Exp date 12/2019 PROCEDURES Procedure Date Ordered Result Body Site GLYCATED HEMOGLOBIN TEST Sep 17, 2018 LIPID PANEL Sep 17, 2018 COMPREHEN METABOLIC PANEL Sep 17, 2018 INSTRUCTIONS MEDICATIONS ADMINISTERED No Known Medications MEDICAL (GENERAL) HISTORY Type Description Date Medical History type II diabetes- 2006 Medical History hypertension- 20 years Medical History 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 was on hydrocodone and morphine and then methadone at pain managment at [place] and then used hydrocodone from pain management 6 months ago Medical History chronic obstructive pulmonary disease (COPD)- used to use spiriva and advair and albuterol prn (last used several months) Medical History sleep apnea wears c-pap with oxygen 12 or 14 he thinks with 2 liters of oxygen Medical History Panic attacks with anxiety. Surgical History heart cath x2 2012/2014 Surgical History kidney stones Surgical History lithotripsy Surgical History bilateral toe nail surgery great toes Hospitalization History Surgery(s) only
--- OUTSIDE RECORDS SUMMARY | 2018-10-29 05:05 | XMS REPORT ---
Author Author LE WILL [facility] Address [address] [place] [address] Care Team Providers Care [employer] Law Clerk Name Role Phone WILLLE Unavailable PROBLEMS Type Condition ICD9-CM Code RYB89-WI Code Onset Dates Condition Status SNOMED Code Problem Coronary artery disease involving [place] coronary artery of [place] heart without angina pectoris I25.10 Active 5920012446403 Problem Nocturnal hypoxemia G47.34 Active 050721883 Problem BRIA (obstructive sleep apnea) G47.33 Active 42562079 Problem Panic attacks F41.0 Active 382571545 Problem Opioid use disorder, mild, abuse F11.10 Active 2587013 Problem Tobacco abuse Z72.0 Active 323539262 Problem Essential hypertension I10 Active 41348703 Problem Osteoarthritis of facet joint of lumbar spine M47.816 Active 485787250 Problem Tobacco abuse counseling Z71.6 Active 050073221 Problem Abnormal glucose R73.09 Active 289005339 Problem Type 2 diabetes mellitus without complication, without long-term current use of insulin E11.9 Active 620042228 Problem Low back pain M54.5 Active 296838664 Problem 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 Active 64607150 Problem Obstructive sleep apnea (adult) (pediatric) G47.33 Active 39643147 Problem Primary osteoarthritis, right hand M19.041 Active 7247300643398858 Problem COPD, mild J44.9 Active 621875324 ALLERGIES No Information ENCOUNTERS Encounter Location Date Diagnosis [facility] [place] [address] [facility] [id number] [address] Sep, [facility] [place] [address] [id number], [place] [address] 36[address] Sep, [facility] [place] [address] [facility] [id number], [place] [address] Aug, Opioid use disorder, mild, abuse F11.10 [place] [address] [place] [id number] [place] [address] 31040- 1145 Aug, Opioid use disorder, mild, abuse F11.10 [place] [address] [place] [id number]- 7533 Aug, Type 2 diabetes mellitus without complication, without long- term current use of insulin E11.9 [place] [address] 73086- 5692 Aug, Type 2 diabetes mellitus without complication, without long- term current use of insulin E11.9 ; Panic attacks F41.0 ; Essential hypertension I10 and BMI 45.0-49.9, adult Z68.42 [place] [address] [place] 520086- 9480 Aug, Opioid use disorder, mild, abuse F11.10 [place] [address] 14598- 6465 Aug, [place] [address] 37754- 6227 Aug, [place] [address] 98627- 3269 Aug, Opioid use disorder, mild, abuse F11.10 [place] [address] 93452- 2328 Aug, Opioid use disorder, mild, abuse F11.10 [place] [address] 68977- 0388 Aug, [facility] [place] [address] 28778- 8173 Jul, Type 2 diabetes mellitus without complication, without long- term current use of insulin E11.9 [place] [address] 02716- 6563 Jul, [place] [address] [place] [id number]- 1733 Jul, Essential hypertension I10 ; Type 2 diabetes mellitus without complication, without long-term current use of insulin E11.9 and BMI 50.0-59.9, adult Z68.43 [facility] [place] [address] [place] [id number] [place] [address] Jul, BMI 50.0-59.9, adult Z68.43 and Opioid use disorder, mild, abuse F11.10 [facility] [place] [address] 339684- 3212 Jul, [facility] [place] [address] [place] 520083- 0486 Jul, Opioid use disorder, mild, abuse F11.10 [place] [address] [place] [id number]- 3068 Jul, Opioid use disorder, mild, abuse F11.10 [place] [address] 57961- 2433 Jul, Opioid use disorder, mild, abuse F11.10 [place] [address] 12828- 7284 Jul, [facility] [place] [address] 80184- 0434 Jul, [facility] [place] [address] [place] [id number] [place] [address] 83754- 7748 Jul, Opioid use disorder, mild, abuse F11.10 and BMI 50.0-59.9, adult Z68.43 [facility] [place] [address] [place] [id number] [place] [address]82 Jun, Opioid use disorder, mild, abuse F11.10 and BMI 50.0-59.9, adult Z68.43 [facility] [place] [address] [place] [id number] [place] [address] 44919- 1408 Jun, [facility] [place] [address] 54363- 7206 Jun, [facility] [place] [address], [place] [address]- 0224 Jun, [facility] [place] [address] [place] [id number] [place] [address] 579756- 7961 Jun, Opioid use disorder, mild, abuse F11.10 [facility] [place] [address] [place] [id number] [place] [address] 07505- 8692 20 Jun, 2018 [facility] [place] [address] [place] [id number] [place] [address] 50722- 6762 19 Jun, 2018 Opioid use disorder, mild, abuse F11.10 [place] [address] [place] [id number] [place] [address] 75883- 4977 18 Jun, 2018 BMI 45.0-49.9, adult Z68.42 and Opioid use disorder, mild, abuse F11.10 [facility] [place] [address] [facility] [address] [id number] [id number] Jun, [place] [address] [place] [address] 90085- 5382 Jun, [facility] [place] [address] [place] [id number] [place] [address] 98870- 9077 Jun, [facility] [place] [address] [facility] [address] [id number] [id number] 05 Jun, 2018 Osteoarthritis of facet joint of lumbar spine M47.816 [place] [address], [place] [address]- 1074 May, [facility] [address] [id number] [id number] May, Essential hypertension I10 ; Type 2 diabetes mellitus without complication, without long-term current use of insulin E11.9 ; Osteoarthritis of facet joint of lumbar spine M47.816 ; Tobacco abuse Z72.0 ; Tobacco abuse counseling Z71.6 and BMI 45.0-49.9, adult Z68.42 [facility] [place] [address] [place] [address] 58900- 9935 Nov, Osteoarthritis of carpometacarpal joints of both thumbs, unspecified osteoarthritis type M18.0 [place] [address] [place] [id number] [place] [address] 58196- 4310 Oct, Primary osteoarthritis, right hand M19.041 [place] [address] 00827- 2404 Oct, Sebaceous cyst L72.3 [place] [address] 43083- 3703 Sep, Primary osteoarthritis, right hand M19.041 ; Type 2 diabetes mellitus without complication, without long-term current use of insulin E11.9 ; 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 ; Essential hypertension I10 ; Coronary artery disease involving [place] coronary artery of [place] heart without angina pectoris I25.10 ; BRIA (obstructive sleep apnea) G47.33 ; COPD, mild J44.9 ; Non-healing skin lesion of nose L98.9 ; BMI 50.0- 59.9, adult Z68.43 and Encounter for immunization Z23 [place] [address] 72687- 0124 Sep, Primary osteoarthritis, right hand M19.041 and 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 [place] [address] [place] [id number] [place] [address] 50681- 7849 Sep, Pain in right hand M79.641 and Pain of left hand M79.642 [place] [address] [place] [id number] [place] [address] 96899- 8327 Sep, Pain in right hand M79.641 and Pain of left hand M79.642 [place] [address] [place] [id number] [place] [address] 38364- 3516 Aug, [place] [address] [place] [id number] [place] [address] 52642- 4183 Aug, [place] [address] 99796- 6030 Aug, Type 2 diabetes mellitus without complication, without long- term current use of insulin E11.9 ; Essential hypertension I10 ; Coronary artery disease involving [place] coronary artery of [place] heart without angina pectoris I25.10 ; BRIA (obstructive sleep apnea) G47.33 ; Nocturnal hypoxemia G47.34 ; COPD, mild J44.9 ; Low back pain M54.5 and BMI 40.0-44.9, adult Z68.41 [facility] [place] [address] [facility] [id number] [place] [address] Jul, IMMUNIZATIONS No Known Immunizations SOCIAL HISTORY Never Assessed REASON FOR VISIT Lab PLAN OF CARE Activity Details Pending Test PDM - ATS (PROFILE 8) Pending Test PDM - AMPHETAMINES W/ REFLEX d/l ISOMERS VITAL SIGNS MEDICATIONS Unknown Medications RESULTS No Results PROCEDURES Procedure Date Ordered Result Body Site DRUG TEST PRSMV CHEM ANLYZR Sep 27, 2018 DRUG SCREEN AMPHETAMINES 1/2 Sep 27, 2018 INSTRUCTIONS MEDICATIONS ADMINISTERED No Known Medications MEDICAL (GENERAL) HISTORY Type Description Date Medical History type II diabetes- 2006 Medical History hypertension- 20 years Medical History 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 was on hydrocodone and morphine and then methadone at pain managment at [place] and then used hydrocodone from pain management [...]
--- OUTSIDE RECORDS SUMMARY | 2018-10-29 05:05 | XMS REPORT ---
Author Author MARÍA ELENA SUNSHINE Organization [facility] Address [address] [place] [address] Care Team Providers Care Policy Adviser Name Role Phone MARÍA ELENA SUNSHINE Unavailable PROBLEMS Type Condition ICD9-CM Code SMY40-BJ Code Onset Dates Condition Status SNOMED Code Problem Coronary artery disease involving [place] coronary artery of [place] heart without angina pectoris I25.10 Active 9859239293827 Problem Nocturnal hypoxemia G47.34 Active 390366213 Problem BRIA (obstructive sleep apnea) G47.33 Active 77335912 Problem Panic attacks F41.0 Active 770327644 Problem Opioid use disorder, mild, abuse F11.10 Active 4607908 Problem Tobacco abuse Z72.0 Active 008066664 Problem Essential hypertension I10 Active 71740915 Problem Osteoarthritis of facet joint of lumbar spine M47.816 Active 164368837 Problem Tobacco abuse counseling Z71.6 Active 379604577 Problem Abnormal glucose R73.09 Active 336363611 Problem Type 2 diabetes mellitus without complication, without long-term current use of insulin E11.9 Active 267582270 Problem Low back pain M54.5 Active 406934461 Problem 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 Active 02460727 Problem Obstructive sleep apnea (adult) (pediatric) G47.33 Active 95769697 Problem Primary osteoarthritis, right hand M19.041 Active 3418682263919478 Problem COPD, mild J44.9 Active 970062230 ALLERGIES No Information ENCOUNTERS Encounter Location Date Diagnosis [facility] [address] [facility] [id number], [place] [address] Sep, [facility] [address] [id number], [place] [address] Aug, Opioid use disorder, mild, abuse F11.10 [facility] [address] [facility] [id number], [place] [address] Aug, Opioid use disorder, mild, abuse F11.10 [place] [id number] [place] [address] 63945- 1114 Aug, Type 2 diabetes mellitus without complication, without long- term current use of insulin E11.9 [place] [id number] [place] [address] 43464- 3026 Aug, Type 2 diabetes mellitus without complication, without long- term current use of insulin E11.9 ; Panic attacks F41.0 ; Essential hypertension I10 and BMI 45.0-49.9, adult Z68.42 [place] [id number] [place] [address] 649989- 4683 Aug, Opioid use disorder, mild, abuse F11.10 [place] [id number] [place] [address] 36603- 8057 Aug, [place] [address] [address]- 6244 Aug, [place] [id number] [place] [address] 20081- 4338 Aug, Opioid use disorder, mild, abuse F11.10 [place] [id number] [place] [address] 57033- 3841 Aug, Opioid use disorder, mild, abuse F11.10 [place] [id number] [place] [address] 14350- 4885 Aug, [facility] [id number] [place] [address] 74050- 9177 Jul, Type 2 diabetes mellitus without complication, without long- term current use of insulin E11.9 [place] [id number] [place] [address] 92311- 3865 Jul, [place] [id number] [place] [address] 89921- 1019 Jul, Essential hypertension I10 ; Type 2 diabetes mellitus without complication, without long-term current use of insulin E11.9 and BMI 50.0-59.9, adult Z68.43 [facility] [id number] [place] [address] 49662- 5747 Jul, BMI 50.0-59.9, adult Z68.43 and Opioid use disorder, mild, abuse F11.10 [facility] [address] [address]- 1202 Jul, [facility] [address] 468965- 8505 Jul, Opioid use disorder, mild, abuse F11.10 [facility] [address] 923749- 0639 Jul, Opioid use disorder, mild, abuse F11.10 [facility] [address] 87813- 8065 Jul, Opioid use disorder, mild, abuse F11.10 [facility] [address] 53780- 7995 Jul, [facility] [address] 81299- 1532 Jul, [facility] [address] 10816- 9641 Jul, Opioid use disorder, mild, abuse F11.10 and BMI 50.0-59.9, adult Z68.43 [facility] [id number] [place] [address] 84291- 5147 Jun, Opioid use disorder, mild, abuse F11.10 and BMI 50.0-59.9, adult Z68.43 [facility] [address] 35763- 7077 Jun, [facility] [address] 85015- 5556 Jun, [facility] [address] 45323- 7066 Jun, [facility] [address], [place] [address] 21 Jun, 2018 Opioid use disorder, mild, abuse F11.10 [facility] [address], [place] [address] 20 Jun, 2018 [facility] [address] [place] [address] 63622- 9996 19 Jun, 2018 Opioid use disorder, mild, abuse F11.10 [facility] [id number] [place] [address] 39623- 9419 18 Jun, 2018 BMI 45.0-49.9, adult Z68.42 and Opioid use disorder, mild, abuse F11.10 [facility] [address] [id number] [id number] Jun, [facility] [id number] [place] [address] 16648- 5450 Jun, [facility] [address] [place] [address] 67215- 4166 Jun, [facility] [address] [id number] [id number] Jun, Osteoarthritis of facet joint of lumbar spine M47.816 [facility] [address], [place] [address] May, [facility] [address] [id number] [id number] May, Essential hypertension I10 ; Type 2 diabetes mellitus without complication, without long-term current use of insulin E11.9 ; Osteoarthritis of facet joint of lumbar spine M47.816 ; Tobacco abuse Z72.0 ; Tobacco abuse counseling Z71.6 and BMI 45.0-49.9, adult Z68.42 [facility] [address], [place] [address] 15 Nov, 2017 Osteoarthritis of carpometacarpal joints of both thumbs, unspecified osteoarthritis type M18.0 [place] [address] [place] [address] 25004- 0313 Oct, Primary osteoarthritis, right hand M19.041 [place] [id number] [place] [address] 74591- 8642 Oct, Sebaceous cyst L72.3 [place] [address] 97965- 0182 Sep, Primary osteoarthritis, right hand M19.041 ; Type 2 diabetes mellitus without complication, without long-term current use of insulin E11.9 ; 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 ; Essential hypertension I10 ; Coronary artery disease involving [place] coronary artery of [place] heart without angina pectoris I25.10 ; BRIA (obstructive sleep apnea) G47.33 ; COPD, mild J44.9 ; Non-healing skin lesion of nose L98.9 ; BMI 50.0- 59.9, adult Z68.43 and Encounter for immunization Z23 [place] [id number] [place] [address] 05569- 4662 Sep, Primary osteoarthritis, right hand M19.041 and 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 [place] [id number] [place] [address] 66065- 1926 Sep, Pain in right hand M79.641 and Pain of left hand M79.642 [place] [id number] [place] [address] 71899- 8883 Sep, Pain in right hand M79.641 and Pain of left hand M79.642 [place] [id number] [place] [address] 86889- 1267 Aug, [place] [address] 28364- 1703 Aug, [place] [id number] [place] [address] 45575- 2184 Aug, Type 2 diabetes mellitus without complication, without long- term current use of insulin E11.9 ; Essential hypertension I10 ; Coronary artery disease involving [place] coronary artery of [place] heart without angina pectoris I25.10 ; BRIA (obstructive sleep apnea) G47.33 ; Nocturnal hypoxemia G47.34 ; COPD, mild J44.9 ; Low back pain M54.5 and BMI 40.0-44.9, adult Z68.41 [facility] [address] [facility] [id number] [place] [address] Jul, IMMUNIZATIONS No Known Immunizations SOCIAL HISTORY Never Assessed REASON FOR VISIT SUBAB FU PLAN OF CARE VITAL SIGNS MEDICATIONS Unknown Medications RESULTS No Results PROCEDURES Procedure Date Ordered Result Body Site Alcohol and/or drug services Sep 13, 2018 INSTRUCTIONS MEDICATIONS ADMINISTERED No Known Medications MEDICAL (GENERAL) HISTORY Type Description Date Medical History type II diabetes- 2006 Medical History hypertension- 20 years Medical History 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 was on hydrocodone and morphine and then methadone at pain managment at [place] and then used hydrocodone from pain management [...]
--- OUTSIDE RECORDS SUMMARY | 2018-10-29 05:05 | XMS REPORT ---
Author Author EMERSON GAUTAM Organization [facility] Address [address] [place] [address] Care Team Providers Care Him Tech Name Role Phone EMERSON GAUTAM Unavailable PROBLEMS Type Condition ICD9-CM Code XDE44-SF Code Onset Dates Condition Status SNOMED Code Problem Coronary artery disease involving [place] coronary artery of [place] heart without angina pectoris I25.10 Active 0892382570523 Problem Nocturnal hypoxemia G47.34 Active 023124646 Problem BRIA (obstructive sleep apnea) G47.33 Active 58274575 Problem Panic attacks F41.0 Active 839263972 Problem Opioid use disorder, mild, abuse F11.10 Active 8796173 Problem Tobacco abuse Z72.0 Active 059445557 Problem Essential hypertension I10 Active 26648489 Problem Osteoarthritis of facet joint of lumbar spine M47.816 Active 671246199 Problem Tobacco abuse counseling Z71.6 Active 651346435 Problem Abnormal glucose R73.09 Active 934940875 Problem Type 2 diabetes mellitus without complication, without long-term current use of insulin E11.9 Active 346206398 Problem Low back pain M54.5 Active 904758773 Problem 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 Active 52320512 Problem Obstructive sleep apnea (adult) (pediatric) G47.33 Active 26021964 Problem Primary osteoarthritis, right hand M19.041 Active 4197416537220576 Problem COPD, mild J44.9 Active 310949035 ALLERGIES No Information ENCOUNTERS Encounter Location Date Diagnosis [facility] [address] [facility] [id number] [address] Sep, [facility] [id number] [address]- 0835 Aug, Opioid use disorder, mild, abuse F11.10 [facility] [id number] [address]- 4188 Aug, Opioid use disorder, mild, abuse F11.10 [place] [id number] [place] [address] 03354- 5373 Aug, Type 2 diabetes mellitus without complication, without long- term current use of insulin E11.9 [place] [id number] [place] [address] 97447- 6743 Aug, Type 2 diabetes mellitus without complication, without long- term current use of insulin E11.9 ; Panic attacks F41.0 ; Essential hypertension I10 and BMI 45.0-49.9, adult Z68.42 [place] [id number] [place] [address] 739294- 3040 Aug, Opioid use disorder, mild, abuse F11.10 [place] [id number] [place] [address] 34618- 4420 Aug, [place] [address] 06[address]- 8071 Aug, [place] [id number] [place] [address] 25529- 4872 Aug, Opioid use disorder, mild, abuse F11.10 [place] [id number] [place] [address] 86043- 3032 Aug, Opioid use disorder, mild, abuse F11.10 [place] [id number] [place] [address] 52483- 0014 Aug, [facility] [id number] [place] [address] 32324- 4944 Jul, Type 2 diabetes mellitus without complication, without long- term current use of insulin E11.9 [place] [id number] [place] [address] 92886- 4712 Jul, [place] [id number] [place] [address] 68595- 5299 Jul, Essential hypertension I10 ; Type 2 diabetes mellitus without complication, without long-term current use of insulin E11.9 and BMI 50.0-59.9, adult Z68.43 [facility] [id number] [place] [address] 24848- 1458 Jul, BMI 50.0-59.9, adult Z68.43 and Opioid use disorder, mild, abuse F11.10 [facility] [address] 92854- 3352 Jul, [facility] [address] 278892- 1069 Jul, Opioid use disorder, mild, abuse F11.10 [facility] [address] 736612- 3314 Jul, Opioid use disorder, mild, abuse F11.10 [facility] [address] 74613- 1527 Jul, Opioid use disorder, mild, abuse F11.10 [facility] [address] 91220- 4627 Jul, [facility] [address] 94312- 6212 Jul, [facility] [address] 78149- 7205 Jul, Opioid use disorder, mild, abuse F11.10 and BMI 50.0-59.9, adult Z68.43 [facility] [id number] [place] [address] 97687- 8281 Jun, Opioid use disorder, mild, abuse F11.10 and BMI 50.0-59.9, adult Z68.43 [facility] [address] 39294- 1598 Jun, [facility] [address] 01539- 7217 Jun, [facility] [address] 23540- 0323 Jun, [facility] [address] [address]- 5995 21 Jun, 2018 Opioid use disorder, mild, abuse F11.10 [facility] [address] [address]- 6902 20 Jun, 2018 [facility] [address] [place] [address] 57025- 9829 19 Jun, 2018 Opioid use disorder, mild, abuse F11.10 [facility] [id number] [place] [address] 29385- 9954 18 Jun, 2018 BMI 45.0-49.9, adult Z68.42 and Opioid use disorder, mild, abuse F11.10 [facility] [address] [id number] [id number] Jun, [facility] [id number] [place] [address] 34474- 2783 Jun, [facility] [address] [place] [address] 27907- 2690 Jun, [facility] [address] [id number] [id number] Jun, Osteoarthritis of facet joint of lumbar spine M47.816 [facility] [address] [address]- 6[address] May, [facility] [address] [id number] [id number] May, Essential hypertension I10 ; Type 2 diabetes mellitus without complication, without long-term current use of insulin E11.9 ; Osteoarthritis of facet joint of lumbar spine M47.816 ; Tobacco abuse Z72.0 ; Tobacco abuse counseling Z71.6 and BMI 45.0-49.9, adult Z68.42 [facility] [address] [address]- 9868 15 Nov, 2017 Osteoarthritis of carpometacarpal joints of both thumbs, unspecified osteoarthritis type M18.0 [place] [address] [place] [address] 39954- 6146 Oct, Primary osteoarthritis, right hand M19.041 [place] [id number] [place] [address] 58840- 2526 Oct, Sebaceous cyst L72.3 [place] [address] 92331- 3748 Sep, Primary osteoarthritis, right hand M19.041 ; Type 2 diabetes mellitus without complication, without long-term current use of insulin E11.9 ; 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 ; Essential hypertension I10 ; Coronary artery disease involving [place] coronary artery of [place] heart without angina pectoris I25.10 ; BRIA (obstructive sleep apnea) G47.33 ; COPD, mild J44.9 ; Non-healing skin lesion of nose L98.9 ; BMI 50.0- 59.9, adult Z68.43 and Encounter for immunization Z23 [place] [id number] [place] [address] 93447- 9007 Sep, Primary osteoarthritis, right hand M19.041 and 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 [place] [id number] [place] [address] 94052- 5987 Sep, Pain in right hand M79.641 and Pain of left hand M79.642 [place] [id number] [place] [address] 85548- 7672 Sep, Pain in right hand M79.641 and Pain of left hand M79.642 [place] [id number] [place] [address] 83758- 0576 Aug, [place] [address] 79616- 3030 Aug, [place] [id number] [place] [address] 39659- 4471 Aug, Type 2 diabetes mellitus without complication, without long- term current use of insulin E11.9 ; Essential hypertension I10 ; Coronary artery disease involving [place] coronary artery of [place] heart without angina pectoris I25.10 ; BRIA (obstructive sleep apnea) G47.33 ; Nocturnal hypoxemia G47.34 ; COPD, mild J44.9 ; Low back pain M54.5 and BMI 40.0-44.9, adult Z68.41 [facility] [address] [facility] [id number] [place] [address]- 28[address] Jul, IMMUNIZATIONS No Known Immunizations SOCIAL HISTORY Never Assessed REASON FOR VISIT new orders PLAN OF CARE VITAL SIGNS MEDICATIONS Medication Instructions Dosage Frequency Start Date End Date Duration Status MetFORMIN HCl ER 500 mg Orally Once a day 1 tablet with evening meal 24h Aug, 30 day(s) Active Lisinopril 10 mg Orally Once a day 1 tablet 24h 90 days Active Atenolol 50 MG Orally Once a day 1 tablet 24h 90 days Active Atorvastatin Calcium 40 MG Orally Once a day 1 tablet 24h Aug, 30 day(s) Active Suboxone 8-2 MG Sublingual 2 times a day 1 film under the tongue and allow to dissolve 12h Jun, 14 days Active Aspir-81 81 MG Orally Once a day 1 tablet 24h May, May, 90 days Active Gabapentin 400 mg Orally 3 times a day 1 capsule 8h May, Active Ibuprofen 200 mg Orally twice a day 4 tablets with food or milk as needed 12h Active Melatonin 3 MG Orally Once a day 3 tablets at bedtime as needed with food 24h Active Glimepiride 1 MG Orally Once a day 1 tablet with breakfast or the first main meal of the day 24h Aug, 30 day(s) Active RESULTS No Results PROCEDURES No Known procedures INSTRUCTIONS MEDICATIONS ADMINISTERED No Known Medications MEDICAL (GENERAL) HISTORY Type Description Date Medical History type II diabetes- 2006 Medical History hypertension- 20 years Medical History heart attack 2011- no [employer]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 was on hydrocodone and morphine and then methadone at pain managment at [place] and then used hydrocodone from pain management [...]
--- OUTSIDE RECORDS SUMMARY | 2018-10-29 05:06 | XMS REPORT ---
Author Author ALLYSSA ARREOLA [facility] Address [address] [place] [address] Care Team Providers Care Wharf Tally Clerk Name Role Phone ALLYSSA ARREOLA Unavailable PROBLEMS Type Condition ICD9-CM Code UXW21-PI Code Onset Dates Condition Status SNOMED Code Problem COPD, mild J44.9 Active 523388122 Problem BRIA (obstructive sleep apnea) G47.33 Active 75113385 Problem Coronary artery disease involving elim ira coronary artery of elim ira heart without angina pectoris I25.10 Active 7930332569721 Problem Opioid use disorder, mild, abuse F11.10 Active 6456692 Problem Osteoarthritis of facet joint of lumbar spine M47.816 Active 312678895 Problem Essential hypertension I10 Active 67859612 Problem Nocturnal hypoxemia G47.34 Active 546129402 Problem Tobacco abuse counseling Z71.6 Active 889298122 Problem Tobacco abuse Z72.0 Active 782778293 Problem Primary osteoarthritis, right hand M19.041 Active 7496600813804827 Problem Type 2 diabetes mellitus without complication, without long-term current use of insulin E11.9 Active 945947869 Problem Abnormal glucose R73.09 Active 105266688 Problem Low back pain M54.5 Active 718432291 Problem 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 Active 28921891 Problem Obstructive sleep apnea (adult) (pediatric) G47.33 Active 03161251 ALLERGIES No Information ENCOUNTERS Encounter Location Date Diagnosis [facility] [id number] [address] Aug, [facility] [address] [address] 16 Aug, 2018 [facility] [address] [address] 14 Aug, 2018 [facility] [address] [place] [address] 80870- 0428 Aug, [facility] [id number] [place] [address] 20041- 5662 Aug, [facility] [id number] [place] [address] 20884- 5362 Jul, Type 2 diabetes mellitus without complication, without long- term current use of insulin E11.9 [facility] [address] [address] Jul, [facility] [id number] [place] [address] 70738- 9562 Jul, Essential hypertension I10 ; Type 2 diabetes mellitus without complication, without long-term current use of insulin E11.9 and BMI 50.0-59.9, adult Z68.43 [place] [id number] [place] [address] 42581- 4896 Jul, BMI 50.0-59.9, adult Z68.43 and Opioid use disorder, mild, abuse F11.10 [facility] [id number] [place] [address] 46680- 4469 Jul, [facility] [id number] [place] [address] 62303- 4080 Jul, Opioid use disorder, mild, abuse F11.10 [facility] [id number] [place] [address] 92747- 0690 Jul, Opioid use disorder, mild, abuse F11.10 [facility] [id number] [place] [address] 13097- 2691 Jul, Opioid use disorder, mild, abuse F11.10 [facility] [id number] [place] [address] 71020- 7264 Jul, [facility] [id number] [place] [address] 26798- 4073 Jul, [facility] [id number] [place] [address] 55491- 6015 08 Jul, 2018 Opioid use disorder, mild, abuse F11.10 and BMI 50.0-59.9, adult Z68.43 [facility] [id number] [place] [address] 25 Jun, 2018 Opioid use disorder, mild, abuse F11.10 and BMI 50.0-59.9, adult Z68.43 [facility] [id number] [place] [address] 53645- 4517 25 Jun, 2018 [facility] [id number] [place] [address] 896746- 6947 Jun, [facility] [address] 36373- 7017 Jun, [facility] [id number] [place] [address] 55328- 6220 Jun, Opioid use disorder, mild, abuse F11.10 [facility] [id number] [place] [address] 27291- 2722 20 Jun, 2018 [facility] [id number] [place] [address] 50547- 7777 19 Jun, 2018 Opioid use disorder, mild, abuse F11.10 [facility] [id number] [place] [address] 89535- 2597 18 Jun, 2018 BMI 45.0-49.9, adult Z68.42 and Opioid use disorder, mild, abuse F11.[address] [facility] [address] [id number] [id number] 12 Jun, 2018 [facility] [id number] [place] [address] 39421- 8647 2018 [facility] [id number] [place] [address] 94337- 3512 [address] [facility] [address] [id number] [id number] 05 Jun, 2018 Osteoarthritis of facet joint of lumbar spine M47.816 [address] [address] [facility] [id number] [address] May, [facility] [id number] [id number] May, Essential hypertension I10 ; Type 2 diabetes mellitus without complication, without long-term current use of insulin E11.9 ; Osteoarthritis of facet joint of lumbar spine M47.816 ; Tobacco abuse Z72.0 ; Tobacco abuse counseling Z71.6 and BMI 45.0-49.9, adult Z68.42 [place] [address] [place] [address] 64233- 7967 Nov, Osteoarthritis of carpometacarpal joints of both thumbs, unspecified osteoarthritis type M18.0 [place] [address] [place] [address] 04532- 8678 Oct, Primary osteoarthritis, right hand M19.041 [place] [address] [place] [address] 23103- 7058 Oct, Sebaceous cyst L72.3 [place] [address] [place] [address] 88016- 7882 Sep, Primary osteoarthritis, right hand M19.041 ; Type 2 diabetes mellitus without complication, without long-term current use of insulin E11.9 ; 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 ; Essential hypertension I10 ; Coronary artery disease involving elim ira coronary artery of elim ira heart without angina pectoris I25.10 ; BRIA (obstructive sleep apnea) G47.33 ; COPD, mild J44.9 ; Non-healing skin lesion of nose L98.9 ; BMI 50.0- 59.9, adult Z68.43 and Encounter for immunization Z23 [place] [id number] [place] [address] 22458- 8721 11 Sep, 2017 Primary osteoarthritis, right hand M19.041 and 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 [place] [address] [place] [address] 18789- 4487 08 Sep, 2017 Pain in right hand M79.641 and Pain of left hand M79.642 [place] [address] [address]- 4871 Sep, Pain in right hand M79.641 and Pain of left hand M79.642 [place] [address] [place] [address] 38474- 4725 Aug, [place] [address] [place] [address] 04505- 6638 Aug, [place] [address] [place] [address] 73255- 1198 Aug, Type 2 diabetes mellitus without complication, without long- term current use of insulin E11.9 ; Essential hypertension I10 ; Coronary artery disease involving elim ira coronary artery of elim ira heart without angina pectoris I25.10 ; BRIA (obstructive sleep apnea) G47.33 ; Nocturnal hypoxemia G47.34 ; COPD, mild J44.9 ; Low back pain M54.5 and BMI 40.0-44.9, adult Z68.41 [place] [address] [place] [address] 36522- 0225 Jul, IMMUNIZATIONS No Known Immunizations SOCIAL HISTORY Never Assessed REASON FOR VISIT transportation PLAN OF CARE VITAL SIGNS MEDICATIONS Unknown Medications RESULTS No Results PROCEDURES Procedure Date Ordered Result Body Site Alcohol and/or drug services Aug 22, 2018 INSTRUCTIONS MEDICATIONS ADMINISTERED No Known Medications MEDICAL (GENERAL) HISTORY Type Description Date Medical History type II diabetes- 2006 Medical History hypertension- 20 years 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 was on hydrocodone and morphine and then methadone at pain managment at [place] and then used hydrocodone from pain management [...]
--- OUTSIDE RECORDS SUMMARY | 2018-10-29 05:06 | XMS REPORT ---
Author Author MARÍA ELENA SUNSHINE [facility] Address [address] [place] [address] Care Team Providers Care Photonics Engineering Technician Name Role Phone MARÍA ELENA SUNSHINE Unavailable PROBLEMS Type Condition ICD9-CM Code DNU61-YE Code Onset Dates Condition Status SNOMED Code Problem COPD, mild J44.9 Active 849152569 Problem BRIA (obstructive sleep apnea) G47.33 Active 64088490 Problem Coronary artery disease involving [place] coronary artery of [place] heart without angina pectoris I25.10 Active 9891622373498 Problem Opioid use disorder, mild, abuse F11.10 Active 6918964 Problem Osteoarthritis of facet joint of lumbar spine M47.816 Active 443833289 Problem Essential hypertension I10 Active 07414793 Problem Nocturnal hypoxemia G47.34 Active 185486478 Problem Tobacco abuse counseling Z71.6 Active 375325092 Problem Tobacco abuse Z72.0 Active 432074139 Problem Primary osteoarthritis, right hand M19.041 Active 0451893224120142 Problem Type 2 diabetes mellitus without complication, without long-term current use of insulin E11.9 Active 468172713 Problem Abnormal glucose R73.09 Active 681803102 Problem Low back pain M54.5 Active 312877555 Problem 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 Active 25399194 Problem Obstructive sleep apnea (adult) (pediatric) G47.33 Active 26932644 ALLERGIES No Information ENCOUNTERS Encounter Location Date Diagnosis [facility] [id number], [place] [address] Aug, [facility] [address] [place] [address] 55984- 8474 Aug, [facility] [address], [place] [address]- 6570 Aug, [facility] [address] [place] [address] 57128- 7681 Aug, [facility] [id number] [place] [address] 67442- 3940 Aug, [facility] [id number] [place] [address]40 Aug, Opioid use disorder, mild, abuse F11.10 [facility] [id number] [place] [address] 90453- 0605 Aug, [facility] [id number] [place] [address] 07101- 8978 Aug, [facility] [id number] [place] [address] 31783- 1739 Jul, Type 2 diabetes mellitus without complication, without long- term current use of insulin E11.9 [place] [id number] [place] [address] 79024- 7805 Jul, [facility] [id number] [place] [address] 90712- 1517 Jul, Essential hypertension I10 ; Type 2 diabetes mellitus without complication, without long-term current use of insulin E11.9 and BMI 50.0-59.9, adult Z68.43 [address] [address] [id number] [place] [address] 75935- 0029 Jul, BMI 50.0-59.9, adult Z68.43 and Opioid use disorder, mild, abuse F11.10 [facility] [address] [place] [address] 28172- 9694 Jul, [facility] [id number] [place] [address] 23447- 6213 Jul, Opioid use disorder, mild, abuse F11.10 [facility] [id number] [place] [address] 02339- 4108 Jul, Opioid use disorder, mild, abuse F11.10 [facility] [id number] [place] [address] 90093- 8572 Jul, Opioid use disorder, mild, abuse F11.10 [facility] [address] [place] [address] 40218- 9478 Jul, [facility] [id number] [place] [address] 26459- 6318 Jul, [facility] [id number] [place] [address] 39603- 0272 Jul, Opioid use disorder, mild, abuse F11.10 and BMI 50.0-59.9, adult Z68.43 [facility] [id number] [place] [address] 31130- 6229 Jun, Opioid use disorder, mild, abuse F11.10 and BMI 50.0-59.9, adult Z68.43 [facility] [id number] [place] [address] 96362- 1570 Jun, [facility] [id number] [place] [address] 77211- 9009 Jun, [facility] [id number] [place] [address] 86711- 0724 Jun, [facility] [id number] [place] [address] 56265- 3733 Jun, Opioid use disorder, mild, abuse F11.10 [facility] [id number] [place] [address] 29556- 3538 Jun, [facility] [id number] [place] [address] 53059- 5708 Jun, Opioid use disorder, mild, abuse F11.10 [facility] [id number] [place] [address] 69423- 3937 18 Jun, 2018 BMI 45.0-49.9, adult Z68.42 and Opioid use disorder, mild, abuse F11.[address] [id number] [id number] Jun, [place] [address] [facility] [id number], [place] [address]- 8153 Jun, [place] [id number] [place] [address] 68267- 3827 Jun, [facility] [address] [id number] [id number] Jun, Osteoarthritis of facet joint of lumbar spine M47.816 [place] [address] [place] [address] 09364- 5304 May, [facility] [address] [id number] [id number] May, Essential hypertension I10 ; Type 2 diabetes mellitus without complication, without long-term current use of insulin E11.9 ; Osteoarthritis of facet joint of lumbar spine M47.816 ; Tobacco abuse Z72.0 ; Tobacco abuse counseling Z71.6 and BMI 45.0-49.9, adult Z68.42 [place] [address], [place] [address]- 6024 Nov, Osteoarthritis of carpometacarpal joints of both thumbs, unspecified osteoarthritis type M18.0 [place] [address] [place] [address] 03119- 7484 Oct, Primary osteoarthritis, right hand M19.041 [place] [address] [place] [address] 01555- 8973 Oct, Sebaceous cyst L72.3 [place] [address], [place] [address]- 1516 Sep, Primary osteoarthritis, right hand M19.041 ; Type 2 diabetes mellitus without complication, without long-term current use of insulin E11.9 ; 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 ; Essential hypertension I10 ; Coronary artery disease involving [place] coronary artery of [place] heart without angina pectoris I25.10 ; BRIA (obstructive sleep apnea) G47.33 ; COPD, mild J44.9 ; Non-healing skin lesion of nose L98.9 ; BMI 50.0- 59.9, adult Z68.43 and Encounter for immunization Z23 [place] [id number] [place] [address] 99079- 6073 Sep, Primary osteoarthritis, right hand M19.041 and 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 [place] [id number] [place] [address] 35577- 3272 Sep, Pain in right hand M79.641 and Pain of left hand M79.642 [place] [id number] [place] [address] 78181- 2065 Sep, Pain in right hand M79.641 and Pain of left hand M79.642 [place] [id number] [place] [address] 57092- 7290 Aug, [place] [id number] [place] [address] 34835- 2138 Aug, [place] [id number] [place] [address] 83090- 1095 Aug, Type 2 diabetes mellitus without complication, without long- term current use of insulin E11.9 ; Essential hypertension I10 ; Coronary artery disease involving [place] coronary artery of [place] heart without angina pectoris I25.10 ; BRIA (obstructive sleep apnea) G47.33 ; Nocturnal hypoxemia G47.34 ; COPD, mild J44.9 ; Low back pain M54.5 and BMI 40.0-44.9, adult Z68.41 [place] [address] [place] [address] 58592- 8436 Jul, IMMUNIZATIONS No Known Immunizations SOCIAL HISTORY Never Assessed REASON FOR VISIT Suboxone rx (09/02-09/11) PLAN OF CARE VITAL SIGNS MEDICATIONS Medication Instructions Dosage Frequency Start Date End Date Duration Status Suboxone 8-2 MG Sublingual 2 times a day 1 film under the tongue and allow to dissolve 12h 19 Jun, 2018 10 days Active RESULTS No Results PROCEDURES No Known procedures INSTRUCTIONS MEDICATIONS ADMINISTERED No Known Medications MEDICAL (GENERAL) HISTORY Type Description Date Medical History type II diabetes- 2006 Medical History hypertension- 20 years Medical History 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 was on hydrocodone and morphine and then methadone at pain managment at [place] and then used hydrocodone from pain management [...]
--- OUTSIDE RECORDS SUMMARY | 2018-10-29 05:06 | XMS REPORT ---
Author Author EMERSON GAUTAM Organization [facility] Address [address] [place] [address] Care Team Providers Care Machinist/Machine Builder Name Role Phone GAUTAMEMERSON Unavailable PROBLEMS Type Condition ICD9-CM Code OUT60-IC Code Onset Dates Condition Status SNOMED Code Problem COPD, mild J44.9 Active 068518390 Problem BRIA (obstructive sleep apnea) G47.33 Active 37157645 Problem Coronary artery disease involving ho-chunk coronary artery of ho-chunk heart without angina pectoris I25.10 Active [id number] Problem Opioid use disorder, mild, abuse F11.10 Active 4472833 Problem Osteoarthritis of facet joint of lumbar spine M47.816 Active 619965842 Problem Essential hypertension I10 Active 19918807 Problem Nocturnal hypoxemia G47.34 Active 718312289 Problem Tobacco abuse counseling Z71.6 Active 377294854 Problem Tobacco abuse Z72.0 Active 551543570 Problem Primary osteoarthritis, right hand M19.041 Active 5864460593714794 Problem Type 2 diabetes mellitus without complication, without long-term current use of insulin E11.9 Active 724196915 Problem Abnormal glucose R73.09 Active 659093014 Problem Low back pain M54.5 Active 353023615 Problem 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 Active 15875823 Problem Obstructive sleep apnea (adult) (pediatric) G47.33 Active 45614917 ALLERGIES Substance Reaction Event Type Date Status Lyrica irritability Drug Allergy Jul, Active Flexeril nausea Drug Allergy Jul, Active ENCOUNTERS Encounter Location Date Diagnosis [facility] [address] [facility] [id number] [address] Aug, [facility] [address] [id number], [place] [address] Aug, [facility] [address] [id number], [place] [address] Aug, [facility] [address] [place] [address] 76764- 5893 Jul, Type 2 diabetes mellitus without complication, without long- term current use of insulin E11.9 [facility] [id number] [place] [address] 05645- 5951 Jul, [facility] [id number] [place] [address] 49701- 5063 Jul, Essential hypertension I10 ; Type 2 diabetes mellitus without complication, without long-term current use of insulin E11.9 and BMI 50.0-59.9, adult Z68.43 [place] [id number] [place] [id number] Jul, BMI 50.0-59.9, adult Z68.43 and Opioid use disorder, mild, abuse F11.10 [place] [id number] [place] [address] 71673- 6977 Jul, [facility] [id number] [place] [address] 45009- 6728 Jul, Opioid use disorder, mild, abuse F11.10 [place] [id number] [place] [address] 91042- 8859 Jul, Opioid use disorder, mild, abuse F11.10 [place] [id number] [place] [address] 75611- 6869 Jul, Opioid use disorder, mild, abuse F11.10 [facility] [id number] [place] [address] 45433- 2999 Jul, [facility] [address] [address]- 8[address] Jul, [facility] [id number] [place] [address] Jul, Opioid use disorder, mild, abuse F11.10 and BMI 50.0-59.9, adult Z68.43 [place] [address] [place] [address] 68456- 2918 Jun, Opioid use disorder, mild, abuse F11.10 and BMI 50.0-59.9, adult Z68.43 [facility] [id number] [place] [address] 10612- 2445 Jun, [facility] [id number] [place] [address] 03670- 1152 Jun, [facility] [id number] [place] [address] 86014- 4117 Jun, [facility] [id number] [place] [address] 307632- 9983 Jun, Opioid use disorder, mild, abuse F11.10 [facility] [id number] [place] [address] 31772- 2066 Jun, [facility] [id number] [place] [address] 10919- 5808 Jun, Opioid use disorder, mild, abuse F11.10 [facility] [id number] [place] [address] 41451- 4390 18 Jun, 2018 BMI 45.0-49.9, adult Z68.42 and Opioid use disorder, mild, abuse F11.[address] [facility] [address] [id number] [id number] Jun, [facility] [address] [place] [address] 56679- 9592 Jun, [facility] [address] [place] [address] 99739- 0136 Jun, [facility] [address] [id number] [id number] Jun, 2018 Osteoarthritis of facet joint of lumbar spine M47.816 [facility] [address] [place] [address] 78218- 0624 May, [facility] [address] [id number] [id number] May, Essential hypertension I10 ; Type 2 diabetes mellitus without complication, without long-term current use of insulin E11.9 ; Osteoarthritis of facet joint of lumbar spine M47.816 ; Tobacco abuse Z72.0 ; Tobacco abuse counseling Z71.6 and BMI 45.0-49.9, adult Z68.42 [place] [address] [place] [address] 52972- 4392 Nov, Osteoarthritis of carpometacarpal joints of both thumbs, unspecified osteoarthritis type M18.[address] [address]- [address]83 Oct, Primary osteoarthritis, right hand M19.[address] [address]- 5360 Oct, Sebaceous cyst L72.[address] 22[address]- 0975 Sep, Primary osteoarthritis, right hand M19.041 ; Type 2 diabetes mellitus without complication, without long-term current use of insulin E11.9 ; 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 ; Essential hypertension I10 ; Coronary artery disease involving ho-chunk coronary artery of ho-chunk heart without angina pectoris I25.10 ; BRIA (obstructive sleep apnea) G47.33 ; COPD, mild J44.9 ; Non-healing skin lesion of nose L98.9 ; BMI 50.0- 59.9, adult Z68.43 and Encounter for immunization Z23 [place] [id number] [place] [address] 03731- 6422 Sep, Primary osteoarthritis, right hand M19.041 and 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 [place] [address] [place] [address] 73040- 0233 Sep, Pain in right hand M79.641 and Pain of left hand M79.[address] [address]- 2887 Sep, Pain in right hand M79.641 and Pain of left hand M79.642 [facility] [address] [id number], [place] [address] Aug, [facility] [address] [id number], [place] [address] Aug, [place] [address] [id number], [place] [address] Aug, Type 2 diabetes mellitus without complication, without long- term current use of insulin E11.9 ; Essential hypertension I10 ; Coronary artery disease involving ho-chunk coronary artery of ho-chunk heart without angina pectoris I25.10 ; BRIA (obstructive sleep apnea) G47.33 ; Nocturnal hypoxemia G47.34 ; COPD, mild J44.9 ; Low back pain M54.5 and BMI 40.0-44.9, adult Z68.41 [place] [address] [id number], [place] [address] Jul, IMMUNIZATIONS No Known Immunizations SOCIAL HISTORY Never Assessed REASON FOR VISIT Establish Care-CYNTHIA wallace, pt is having some concerns about his diabetes PLAN OF CARE Activity Details Follow Up 4 Weeks Reason:DM2 VITAL SIGNS Height 63 in 2018-08-23 Weight 289.4 lbs 2018-08-23 Temperature 98.3 degrees Fahrenheit 2018-08-23 Heart Rate 108 bpm 2018-08-23 Respiratory Rate 22 2018-08-23 Oximetry on room air:98 % 2018-08-23 BMI 51.26 kg/m2 2018-08-23 Blood pressure systolic 164 mmHg 2018-08-23 Blood pressure diastolic 108 mmHg 2018-08-23 MEDICATIONS Medication Instructions Dosage Frequency Start Date End Date Duration Status Aspir-81 81 MG Orally Once a day 1 tablet 24h May, May, 90 days Active Atenolol 50 MG Orally Once a day 1 tablet 24h 90 days Active Zanaflex 4 MG Orally 2 times a day 1 capsule as needed for muscle pain 12h May, Aug, 30 days Active Lisinopril 10 mg Orally Once a day 1 tablet 24h 90 days Active Gabapentin 400 mg Orally 3 times a day 1 capsule 8h May, Active Ibuprofen 200 mg Orally twice a day 4 tablets with food or milk as needed 12h Active Suboxone 8-2 MG Sublingual 2 times a day 1 film under the tongue and allow to dissolve 12h 19 Jun, 2018 9 days Active Melatonin 3 MG Orally Once a day 3 tablets at bedtime as needed with food 24h Active MetFORMIN HCl ER 500 mg Orally twice a day 1 tablet with evening meal 12h 21 May, 2018 90 days Active RESULTS No Results PROCEDURES No Known procedures INSTRUCTIONS MEDICATIONS ADMINISTERED No Known Medications MEDICAL (GENERAL) HISTORY Type Description Date Medical History type II diabetes- 2006 Medical History hypertension- 20 years 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 was on hydrocodone and morphine and then methadone at pain managment at [place] and then used hydrocodone from pain management [...]
--- OUTSIDE RECORDS SUMMARY | 2018-10-29 05:06 | XMS REPORT ---
Author Author MARÍA ELENA SUNSHINE [facility] Address [address] [place] [address] Care Team Providers Care Gas Regulator Repairer Helper Name Role Phone MARÍA ELENA SUNSHINE Unavailable PROBLEMS Type Condition ICD9-CM Code DCM31-ZP Code Onset Dates Condition Status SNOMED Code Problem COPD, mild J44.9 Active 614249296 Problem BRIA (obstructive sleep apnea) G47.33 Active 59132696 Problem Coronary artery disease involving [place] coronary artery of [place] heart without angina pectoris I25.10 Active 9833002587436 Problem Opioid use disorder, mild, abuse F11.10 Active 5813938 Problem Osteoarthritis of facet joint of lumbar spine M47.816 Active 324747354 Problem Essential hypertension I10 Active 67220575 Problem Nocturnal hypoxemia G47.34 Active 104835087 Problem Tobacco abuse counseling Z71.6 Active 761068560 Problem Tobacco abuse Z72.0 Active 168959227 Problem Primary osteoarthritis, right hand M19.041 Active 3731942214431410 Problem Type 2 diabetes mellitus without complication, without long-term current use of insulin E11.9 Active 419747629 Problem Abnormal glucose R73.09 Active 260601836 Problem Low back pain M54.5 Active 294493534 Problem 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 Active 56559541 Problem Obstructive sleep apnea (adult) (pediatric) G47.33 Active 56373586 ALLERGIES No Information ENCOUNTERS Encounter Location Date Diagnosis [facility] [address] [id number] [address] Aug, [facility] [address] [place] [address] 83401- 5702 Aug, [facility] [address], [place] [address] 6561 Aug, [facility] [address] [place] [address] 55893- 3930 Aug, [facility] [id number] [place] [address] 38238- 6154 Aug, [facility] [id number] [place] [address] Aug, Opioid use disorder, mild, abuse F11.10 [facility] [id number] [place] [address] 31743- 6005 Aug, [facility] [id number] [place] [address] 20957- 4771 Aug, [facility] [id number] [place] [address] 41516- 0627 Jul, Type 2 diabetes mellitus without complication, without long- term current use of insulin E11.9 [place] [id number] [place] [address] 10334- 2963 Jul, [facility] [id number] [place] [address] 65629- 9345 Jul, Essential hypertension I10 ; Type 2 diabetes mellitus without complication, without long-term current use of insulin E11.9 and BMI 50.0-59.9, adult Z68.43 [place] [id number] [place] [address] 91101- 2485 Jul, BMI 50.0-59.9, adult Z68.43 and Opioid use disorder, mild, abuse F11.10 [facility] [address] [place] [address] 49678- 3029 Jul, [facility] [id number] [place] [address] 24274- 5744 Jul, Opioid use disorder, mild, abuse F11.10 [facility] [id number] [place] [address] 89458- 5532 Jul, Opioid use disorder, mild, abuse F11.10 [facility] [id number] [place] [address] 58375- 0138 Jul, Opioid use disorder, mild, abuse F11.10 [facility] [address] [place] [address] 50304- 3053 Jul, [facility] [id number] [place] [address] 06777- 8505 Jul, [facility] [id number] [place] [address] 91704- 0929 Jul, Opioid use disorder, mild, abuse F11.10 and BMI 50.0-59.9, adult Z68.43 [facility] [id number] [place] [address] 93152- 3250 Jun, Opioid use disorder, mild, abuse F11.10 and BMI 50.0-59.9, adult Z68.43 [facility] [id number] [place] [address] 46130- 2199 Jun, [facility] [id number] [place] [address] 09712- 6960 Jun, [facility] [id number] [place] [address] 87934- 2098 Jun, [facility] [id number] [place] [address] 24255- 8395 Jun, Opioid use disorder, mild, abuse F11.10 [facility] [id number] [place] [address] 77514- 7561 Jun, [facility] [id number] [place] [address] 02457- 2603 Jun, Opioid use disorder, mild, abuse F11.10 [facility] [id number] [place] [address] 93103- 7236 18 Jun, 2018 BMI 45.0-49.9, adult Z68.42 and Opioid use disorder, mild, abuse F11.[address] [id number] [id number] Jun, [place] [address] [facility] [id number] [address]- 5895 Jun, [place] [id number] [place] [address] 79830- 0549 Jun, [facility] [address] [id number] [address] Jun, Osteoarthritis of facet joint of lumbar spine M47.816 [place] [address] [place] [address] 88148- 8024 May, [facility] [address] [id number] [id number] May, Essential hypertension I10 ; Type 2 diabetes mellitus without complication, without long-term current use of insulin E11.9 ; Osteoarthritis of facet joint of lumbar spine M47.816 ; Tobacco abuse Z72.0 ; Tobacco abuse counseling Z71.6 and BMI 45.0-49.9, adult Z68.42 [place] [address] [address]- 4495 Nov, Osteoarthritis of carpometacarpal joints of both thumbs, unspecified osteoarthritis type M18.0 [place] [address] [place] [address] 28474- 3383 Oct, Primary osteoarthritis, right hand M19.041 [place] [address] [place] [address] 13503- 3060 Oct, Sebaceous cyst L72.3 [place] [address] [address]- 9662 Sep, Primary osteoarthritis, right hand M19.041 ; Type 2 diabetes mellitus without complication, without long-term current use of insulin E11.9 ; 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 ; Essential hypertension I10 ; Coronary artery disease involving [place] coronary artery of [place] heart without angina pectoris I25.10 ; BRIA (obstructive sleep apnea) G47.33 ; COPD, mild J44.9 ; Non-healing skin lesion of nose L98.9 ; BMI 50.0- 59.9, adult Z68.43 and Encounter for immunization Z23 [place] [id number] [place] [address] 86626- 2972 11 Sep, 2017 Primary osteoarthritis, right hand M19.041 and 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 [place] [address] [place] [address] 73332- 4986 Sep, Pain in right hand M79.641 and Pain of left hand M79.642 [place] [address] [place] [address] 34171- 0737 Sep, Pain in right hand M79.641 and Pain of left hand M79.642 [place] [address] [place] [address] 63165- 3643 Aug, [place] [address] [place] [address] 66023- 1056 Aug, [place] [id number] [place] [address] 17960- 8615 Aug, Type 2 diabetes mellitus without complication, without long- term current use of insulin E11.9 ; Essential hypertension I10 ; Coronary artery disease involving [place] coronary artery of [place] heart without angina pectoris I25.10 ; BRIA (obstructive sleep apnea) G47.33 ; Nocturnal hypoxemia G47.34 ; COPD, mild J44.9 ; Low back pain M54.5 and BMI 40.0-44.9, adult Z68.41 [place] [address] [place] [address] 65358- 1268 Jul, IMMUNIZATIONS No Known Immunizations SOCIAL HISTORY Never Assessed REASON FOR VISIT SUBAB F/U PLAN OF CARE VITAL SIGNS MEDICATIONS Unknown Medications RESULTS No Results PROCEDURES Procedure Date Ordered Result Body Site Alcohol and/or drug services Aug 30, 2018 INSTRUCTIONS MEDICATIONS ADMINISTERED No Known Medications MEDICAL (GENERAL) HISTORY Type Description Date Medical History type II diabetes- 2006 Medical History hypertension- 20 years 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 was on hydrocodone and morphine and then methadone at pain managment at [place] and then used hydrocodone from pain management [...]
--- OUTSIDE RECORDS SUMMARY | 2018-10-29 05:06 | XMS REPORT ---
Author Author EMERSON GAUTAM Organization [facility] [place] Address [address] [place] [address] Care Team Providers Care Child Development Associate Teacher Name Role Phone GAUTAMEMERSON Unavailable PROBLEMS Type Condition ICD9-CM Code CHP36-RK Code Onset Dates Condition Status SNOMED Code Problem COPD, mild J44.9 Active 138898122 Problem BRIA (obstructive sleep apnea) G47.33 Active 39618284 Problem Coronary artery disease involving [place] coronary artery of [place] heart without angina pectoris I25.10 Active 1714349535580 Problem Opioid use disorder, mild, abuse F11.10 Active 4064185 Problem Osteoarthritis of facet joint of lumbar spine M47.816 Active 562682929 Problem Essential hypertension I10 Active 85856564 Problem Nocturnal hypoxemia G47.34 Active 652127846 Problem Tobacco abuse counseling Z71.6 Active 482636692 Problem Tobacco abuse Z72.0 Active 119057569 Problem Primary osteoarthritis, right hand M19.041 Active 0911565856661985 Problem Type 2 diabetes mellitus without complication, without long-term current use of insulin E11.9 Active 012140366 Problem Abnormal glucose R73.09 Active 375739226 Problem Low back pain M54.5 Active 946658754 Problem 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 Active 19348295 Problem Obstructive sleep apnea (adult) (pediatric) G47.33 Active 01005104 ALLERGIES No Information ENCOUNTERS Encounter Location Date Diagnosis [facility] [place] [id number] [address] Aug, [facility] [place] [id number] [place] [address] 16113- 0459 14 Aug, 2018 [facility] [place] [address] [address] 02 Aug, 2018 [facility] [place] [address] [place] [address] 30319- 6067 Jul, Type 2 diabetes mellitus without complication, without long- term current use of insulin E11.9 [address] [id number] [place] [address] 37323- 1242 Jul, [facility] [place] [id number] [place] [address] 90439- 6171 Jul, Essential hypertension I10 ; Type 2 diabetes mellitus without complication, without long-term current use of insulin E11.9 and BMI 50.0-59.9, adult Z68.43 [place] [id number] [place] [address] 000574- 1117 Jul, BMI 50.0-59.9, adult Z68.43 and Opioid use disorder, mild, abuse F11.10 [place] [id number] [place] [address] 35779- 9151 Jul, [place] [id number] [place] [address] 92973- 8901 Jul, Opioid use disorder, mild, abuse F11.10 [place] [id number] [place] [address] 12546- 9129 Jul, Opioid use disorder, mild, abuse F11.10 [place] [id number] [place] [address] 38335- 1884 Jul, Opioid use disorder, mild, abuse F11.10 [place] [id number] [place] [address] 37936- 5266 Jul, [place] [id number] [place] [address] 99004- 8211 Jul, [place] [id number] [place] [address] 23080- 8773 Jul, Opioid use disorder, mild, abuse F11.10 and BMI 50.0-59.9, adult Z68.43 [place] [id number] [place] [address] 80189- 3907 Jun, Opioid use disorder, mild, abuse F11.10 and BMI 50.0-59.9, adult Z68.43 [facility] [place] [id number] [place] [address] 74498- 9273 Jun, [facility] [place] [id number] [place] [address] 05202- 8517 Jun, [facility] [place] [id number] [place] [address] 44080- 8425 Jun, [facility] [place] [id number] [place] [address] 39615- 0161 Jun, Opioid use disorder, mild, abuse F11.10 [facility] [place] [id number] [place] [address] 32685- 5130 Jun, [facility] [place] [id number] [place] [address] 30848- 9652 Jun, Opioid use disorder, mild, abuse F11.10 [facility] [place] [address] [place] [address] 80709- 6197 18 Jun, 2018 BMI 45.0-49.9, adult Z68.42 and Opioid use disorder, mild, abuse F11.10 [facility] [address] [id number] [id number] Jun, [facility] [place] [address] [place] [address] 61323- 5954 Jun, [facility] [place] [id number] [place] [address] 72828- 1466 Jun, [facility] [address] [id number] [id number] Jun, Osteoarthritis of facet joint of lumbar spine M47.816 [facility] [place] [address] [address] May, [facility] [address] [id number] [id number] May, Essential hypertension I10 ; Type 2 diabetes mellitus without complication, without long-term current use of insulin E11.9 ; Osteoarthritis of facet joint of lumbar spine M47.816 ; Tobacco abuse Z72.0 ; Tobacco abuse counseling Z71.6 and BMI 45.0-49.9, adult Z68.42 [place] [id number] [place] [address] 29812- 8063 Nov, Osteoarthritis of carpometacarpal joints of both thumbs, unspecified osteoarthritis type M18.0 [place] [id number] [place] [address] 73331- 2454 Oct, Primary osteoarthritis, right hand M19.041 [place] [address] 17621- 6373 Oct, Sebaceous cyst L72.3 [place] [address] 85360- 2540 Sep, Primary osteoarthritis, right hand M19.041 ; Type 2 diabetes mellitus without complication, without long-term current use of insulin E11.9 ; 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 ; Essential hypertension I10 ; Coronary artery disease involving [place] coronary artery of [place] heart without angina pectoris I25.10 ; BRIA (obstructive sleep apnea) G47.33 ; COPD, mild J44.9 ; Non-healing skin lesion of nose L98.9 ; BMI 50.0- 59.9, adult Z68.43 and Encounter for immunization Z23 [place] [id number] [place] [address] 74983- 1166 Sep, Primary osteoarthritis, right hand M19.041 and 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 [place] [id number] [place] [address] 27966- 6260 08 Sep, 2017 Pain in right hand M79.641 and Pain of left hand M79.642 [place] [id number] [place] [address] 92867- 8673 Sep, Pain in right hand M79.641 and Pain of left hand M79.642 [place] [address] [address] [facility] [id number] [address] 6057 Aug, [facility] [place] [id number] [address] 8784 Aug, [place] [address] [facility] [id number] [address] 9255 Aug, Type 2 diabetes mellitus without complication, without long- term current use of insulin E11.9 ; Essential hypertension I10 ; Coronary artery disease involving [place] coronary artery of [place] heart without angina pectoris I25.10 ; BRIA (obstructive sleep apnea) G47.33 ; Nocturnal hypoxemia G47.34 ; COPD, mild J44.9 ; Low back pain M54.5 and BMI 40.0-44.9, adult Z68.41 [place] [address] [facility] [id number] [address] 60[address] Jul, IMMUNIZATIONS No Known Immunizations SOCIAL HISTORY Never Assessed REASON FOR VISIT med clarification PLAN OF CARE VITAL SIGNS MEDICATIONS Medication Instructions Dosage Frequency Start Date End Date Duration Status MetFORMIN HCl ER 500 mg Orally twice a day 1 tablet 12h May, 90 days Active RESULTS No Results PROCEDURES No Known procedures INSTRUCTIONS MEDICATIONS ADMINISTERED No Known Medications MEDICAL (GENERAL) HISTORY Type Description Date Medical History type II diabetes- 2006 Medical History hypertension- 20 years Medical 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 was on hydrocodone and morphine and then methadone at pain managment at [place] and then used hydrocodone from pain management [...]
--- OUTSIDE RECORDS SUMMARY | 2018-10-29 05:06 | XMS REPORT ---
Author Author MARÍA ELENA SUNSHINE [facility] Address [address] [place] [address] Care Team Providers Care Front End Developer Designer Name Role Phone MARÍA ELENA SUNSHINE Unavailable PROBLEMS Type Condition ICD9-CM Code LXB19-EL Code Onset Dates Condition Status SNOMED Code Problem COPD, mild J44.9 Active 827824553 Problem BRIA (obstructive sleep apnea) G47.33 Active 11974154 Problem Coronary artery disease involving [place] coronary artery of [place] heart without angina pectoris I25.10 Active 0131805661364 Problem Opioid use disorder, mild, abuse F11.10 Active 6697878 Problem Osteoarthritis of facet joint of lumbar spine M47.816 Active 168092375 Problem Essential hypertension I10 Active 44918682 Problem Nocturnal hypoxemia G47.34 Active 235377313 Problem Tobacco abuse counseling Z71.6 Active 539683368 Problem Tobacco abuse Z72.0 Active 080251028 Problem Primary osteoarthritis, right hand M19.041 Active 7158782558563071 Problem Type 2 diabetes mellitus without complication, without long-term current use of insulin E11.9 Active 153281864 Problem Abnormal glucose R73.09 Active 761453985 Problem Low back pain M54.5 Active 801393053 Problem 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 Active 96688720 Problem Obstructive sleep apnea (adult) (pediatric) G47.33 Active 24109257 ALLERGIES No Information ENCOUNTERS Encounter Location Date Diagnosis [facility] [place] [id number], [place] [address] Aug, [facility] [place] [address] [place] [address] 82859- 8366 Aug, [facility] [place] [address], [place] [address] 9541 Aug, [facility] [place] [address] [place] [address] 90139- 9281 Aug, [facility] [place] [id number] [place] [address] 68477- 8696 Aug, [facility] [place] [id number] [place], [place] [address] Aug, Opioid use disorder, mild, abuse F11.10 [facility] [place] [id number] [place] [address] 97292- 0986 Aug, [facility] [place] [id number] [place] [address] 59026- 5873 Aug, [facility] [place] [id number] [place] [address] 44293- 5724 Jul, Type 2 diabetes mellitus without complication, without long- term current use of insulin E11.9 [place] [id number] [place] [address] 52821- 3685 Jul, [facility] [place] [id number] [place] [address] 63981- 0472 Jul, Essential hypertension I10 ; Type 2 diabetes mellitus without complication, without long-term current use of insulin E11.9 and BMI 50.0-59.9, adult Z68.43 [place] [id number] [place] [address] 29501- 1245 Jul, BMI 50.0-59.9, adult Z68.43 and Opioid use disorder, mild, abuse F11.10 [facility] [place] [address] [place] [address] 35068- 9648 Jul, [facility] [place] [id number] [place] [address] 56955- 2647 Jul, Opioid use disorder, mild, abuse F11.10 [facility] [place] [id number] [place] [address] 85714- 3563 Jul, Opioid use disorder, mild, abuse F11.10 [facility] [place] [id number] [place] [address] 91308- 4732 Jul, Opioid use disorder, mild, abuse F11.10 [facility] [place] [address] [place] [address] 71173- 2061 Jul, [facility] [place] [id number] [place] [address] 37687- 9594 Jul, [facility] [place] [id number] [place] [address] 63353- 1070 Jul, Opioid use disorder, mild, abuse F11.10 and BMI 50.0-59.9, adult Z68.43 [facility] [place] [id number] [place] [address] 61790- 8739 Jun, Opioid use disorder, mild, abuse F11.10 and BMI 50.0-59.9, adult Z68.43 [facility] [place] [id number] [place] [address] 97888- 4678 Jun, [facility] [place] [id number] [place] [address] 00672- 0998 Jun, [facility] [place] [id number] [place] [address] 21654- 5668 Jun, [facility] [place] [id number] [place] [address] 65127- 0093 Jun, Opioid use disorder, mild, abuse F11.10 [facility] [place] [id number] [place] [address] 18068- 5580 Jun, [facility] [place] [id number] [place] [address] 97226- 2145 Jun, Opioid use disorder, mild, abuse F11.10 [facility] [place] [id number] [place] [address] 05117- 5779 18 Jun, 2018 BMI 45.0-49.9, adult Z68.42 and Opioid use disorder, mild, abuse F11.[address] [id number] [id number] Jun, [place] [address] [facility] [id number], [place] [address]- 9521 Jun, [place] [id number] [place] [address] 53093- 3986 Jun, [facility] [address] [id number] [id number] Jun, Osteoarthritis of facet joint of lumbar spine M47.816 [place] [address] [place] [address] 77393- 2303 May, [facility] [address] [id number] [id number] May, Essential hypertension I10 ; Type 2 diabetes mellitus without complication, without long-term current use of insulin E11.9 ; Osteoarthritis of facet joint of lumbar spine M47.816 ; Tobacco abuse Z72.0 ; Tobacco abuse counseling Z71.6 and BMI 45.0-49.9, adult Z68.42 [place] [address], [place] [address]- 6368 Nov, Osteoarthritis of carpometacarpal joints of both thumbs, unspecified osteoarthritis type M18.0 [place] [address] [place] [address] 69805- 2584 Oct, Primary osteoarthritis, right hand M19.041 [place] [address] [place] [address] 41658- 5867 Oct, Sebaceous cyst L72.3 [place] [address], [place] [address]- 6447 Sep, Primary osteoarthritis, right hand M19.041 ; Type 2 diabetes mellitus without complication, without long-term current use of insulin E11.9 ; 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 ; Essential hypertension I10 ; Coronary artery disease involving [place] coronary artery of [place] heart without angina pectoris I25.10 ; BRIA (obstructive sleep apnea) G47.33 ; COPD, mild J44.9 ; Non-healing skin lesion of nose L98.9 ; BMI 50.0- 59.9, adult Z68.43 and Encounter for immunization Z23 [place] [id number] [place] [address] 05895- 0107 Sep, Primary osteoarthritis, right hand M19.041 and 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 [place] [id number] [place] [address] 40169- 6109 Sep, Pain in right hand M79.641 and Pain of left hand M79.642 [place] [id number] [place] [address] 35630- 8571 Sep, Pain in right hand M79.641 and Pain of left hand M79.642 [place] [id number] [place] [address] 10547- 2751 Aug, [place] [id number] [place] [address] 16189- 5892 Aug, [place] [id number] [place] [address] 34750- 2018 Aug, Type 2 diabetes mellitus without complication, without long- term current use of insulin E11.9 ; Essential hypertension I10 ; Coronary artery disease involving [place] coronary artery of [place] heart without angina pectoris I25.10 ; BRIA (obstructive sleep apnea) G47.33 ; Nocturnal hypoxemia G47.34 ; COPD, mild J44.9 ; Low back pain M54.5 and BMI 40.0-44.9, adult Z68.41 [place] [address] [place] [address] 81111- 7935 Jul, IMMUNIZATIONS No Known Immunizations SOCIAL HISTORY Never Assessed REASON FOR VISIT Reschedule request PLAN OF CARE VITAL SIGNS MEDICATIONS Unknown Medications RESULTS No Results PROCEDURES No Known procedures INSTRUCTIONS MEDICATIONS ADMINISTERED No Known Medications MEDICAL (GENERAL) HISTORY Type Description Date Medical History type II diabetes- 2006 Medical History hypertension- 20 years 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 was on hydrocodone and morphine and then methadone at pain managment at [place] and then used hydrocodone from pain management [...]
--- OUTSIDE RECORDS SUMMARY | 2018-10-29 05:07 | XMS REPORT ---
Author Author MARÍA ELENA SUNSHINE Organization [facility] Address [address] [place] [address] Care Team Providers Care Continuous Vulcanizing Machine Operator Name Role Phone MARÍA ELENA SUNSHINE Unavailable PROBLEMS Type Condition ICD9-CM Code KUK76-FD Code Onset Dates Condition Status SNOMED Code Problem COPD, mild J44.9 Active 604338499 Problem BRIA (obstructive sleep apnea) G47.33 Active 88585638 Problem Coronary artery disease involving [place] coronary artery of choctaw heart without angina pectoris I25.10 Active 9452316250911 Problem Opioid use disorder, mild, abuse F11.10 Active 2508248 Problem Osteoarthritis of facet joint of lumbar spine M47.816 Active 075491446 Problem Essential hypertension I10 Active 39080912 Problem Nocturnal hypoxemia G47.34 Active 588589820 Problem Tobacco abuse counseling Z71.6 Active 274008639 Problem Tobacco abuse Z72.0 Active 152815352 Problem Primary osteoarthritis, right hand M19.041 Active 1720429419462257 Problem Type 2 diabetes mellitus without complication, without long-term current use of insulin E11.9 Active 322410416 Problem Abnormal glucose R73.09 Active 809672691 Problem Low back pain M54.5 Active 996881089 Problem 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 Active 68444098 Problem Obstructive sleep apnea (adult) (pediatric) G47.33 Active 29000351 ALLERGIES No Information ENCOUNTERS Encounter Location Date Diagnosis [facility] [address] [facility] [id number], [place] [address] Jul, [facility] [address], [place] [address] Jul, [facility] [address] [id number], [place] [address] Jul, Opioid use disorder, mild, abuse F11.10 [facility] [address], [place] [address] Jul, [facility] [id number] [place] [address] 05224- 6696 Jul, [facility] [address] [place] [address] 86326- 1298 Jul, Opioid use disorder, mild, abuse F11.10 and BMI 50.0-59.9, adult Z68.43 [facility] [id number] [place] [address] 86440- 2817 Jun, Opioid use disorder, mild, abuse F11.10 and BMI 50.0-59.9, adult Z68.43 [facility] [id number] [place] [address] 70772- 3198 Jun, [facility] [id number] [place] [address] 40016- 1134 Jun, [facility] [id number] [place] [address] 77307- 3218 Jun, [facility] [id number] [place] [address] 13821- 0434 Jun, Opioid use disorder, mild, abuse F11.10 [facility] [address], [place] [address] 132[address] Jun, [facility] [address] [place] [address] 73637- 2292 19 Jun, 2018 Opioid use disorder, mild, abuse F11.10 [facility] [address], [place] [address] 18 Jun, 2018 BMI 45.0-49.9, adult Z68.42 and Opioid use disorder, mild, abuse F11.10 [facility] [address] [facility] [facility] [address] [id number] [id number] 12 Jun, 2018 [facility] [address], [place] [address] Jun, [place] [address] [id number], [place] [address] Jun, [facility] [address] [place] [address] AVE [id number] [id number] Jun, Osteoarthritis of facet joint of lumbar spine M47.816 [place] [address], [place] [address] May, [facility] [address] [place] [address] AVE [id number] [id number] May, Essential hypertension I10 ; Type 2 diabetes mellitus without complication, without long-term current use of insulin E11.9 ; Osteoarthritis of facet joint of lumbar spine M47.816 ; Tobacco abuse Z72.0 ; Tobacco abuse counseling Z71.6 and BMI 45.0-49.9, adult Z68.42 [place] [id number] [place] [address] 36589- 2174 Nov, Osteoarthritis of carpometacarpal joints of both thumbs, unspecified osteoarthritis type M18.0 [place] [id number] [place] [address] 33277- 7701 Oct, Primary osteoarthritis, right hand M19.041 [place] [id number] [place] [address] 65287- 2474 Oct, Sebaceous cyst L72.3 [place] [id number] [place] [address] 71017- 4312 Sep, Primary osteoarthritis, right hand M19.041 ; Type 2 diabetes mellitus without complication, without long-term current use of insulin E11.9 ; 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 ; Essential hypertension I10 ; Coronary artery disease involving [place] coronary artery of choctaw heart without angina pectoris I25.10 ; BRIA (obstructive sleep apnea) G47.33 ; COPD, mild J44.9 ; Non-healing skin lesion of nose L98.9 ; BMI 50.0- 59.9, adult Z68.43 and Encounter for immunization Z23 [place] [id number] [place] [address] 31276- 5988 11 Sep, 2017 Primary osteoarthritis, right hand M19.041 and 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 [place] [id number] [place] [address] 40200- 9533 08 Sep, 2017 Pain in right hand M79.641 and Pain of left hand M79.642 [place] [id number] [place] [address] 46081- 3661 Sep, Pain in right hand M79.641 and Pain of left hand M79.642 [place] [id number] [place] [address] 23754- 1923 Aug, [place] [id number] [place] [address] 06487- 2677 Aug, [place] [id number] [place] [address] 82135- 0668 Aug, Type 2 diabetes mellitus without complication, without long- term current use of insulin E11.9 ; Essential hypertension I10 ; Coronary artery disease involving [place] coronary artery of choct[place] heart without angina pectoris I25.10 ; BRIA (obstructive sleep apnea) G47.33 ; Nocturnal hypoxemia G47.34 ; COPD, mild J44.9 ; Low back pain M54.5 and BMI 40.0-44.9, adult Z68.41 [place] [id number] [place] [address] 85167- 1228 Jul, IMMUNIZATIONS No Known Immunizations SOCIAL HISTORY Never Assessed REASON FOR VISIT suboxone rx (08/07-08/14) PLAN OF CARE VITAL SIGNS MEDICATIONS Medication Instructions Dosage Frequency Start Date End Date Duration Status Suboxone 8-2 MG Sublingual 2 times a day 1 film under the tongue and allow to dissolve 12h Jun, 8 days Active RESULTS No Results PROCEDURES No Known procedures INSTRUCTIONS MEDICATIONS ADMINISTERED No Known Medications MEDICAL (GENERAL) HISTORY Type Description Date Medical History type II diabetes- 2006 Medical History hypertension- 20 years 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 was on hydrocodone and morphine and then methadone at pain managment at [place] and then used hydrocodone from pain management [...]
--- OUTSIDE RECORDS SUMMARY | 2018-10-29 05:07 | XMS REPORT ---
Author Author MARÍA ELENA SUNSHINE Organization [facility] Address [address] [place] [address] Care Team Providers Care Home Appraiser Name Role Phone MARÍA ELENA SUNSHINE Unavailable PROBLEMS Type Condition ICD9-CM Code TRI68-OI Code Onset Dates Condition Status SNOMED Code Problem COPD, mild J44.9 Active 981767509 Problem BRIA (obstructive sleep apnea) G47.33 Active 71996976 Problem Coronary artery disease involving [place] coronary artery of [place] heart without angina pectoris I25.10 Active 4505956296496 Problem Opioid use disorder, mild, abuse F11.10 Active 8323885 Problem Osteoarthritis of facet joint of lumbar spine M47.816 Active 498890725 Problem Essential hypertension I10 Active 60483133 Problem Nocturnal hypoxemia G47.34 Active 277158980 Problem Tobacco abuse counseling Z71.6 Active 327962100 Problem Tobacco abuse Z72.0 Active 489489230 Problem Primary osteoarthritis, right hand M19.041 Active 3373365200809454 Problem Type 2 diabetes mellitus without complication, without long-term current use of insulin E11.9 Active 230143714 Problem Abnormal glucose R73.09 Active 132652048 Problem Low back pain M54.5 Active 744225364 Problem 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 Active 39472667 Problem Obstructive sleep apnea (adult) (pediatric) G47.33 Active 47798989 ALLERGIES No Information ENCOUNTERS Encounter Location Date Diagnosis [facility] [address] [facility] [id number] [address] Jul, [facility] [address] [address] Jul, [facility] [address] [id number] [address] Jul, Opioid use disorder, mild, abuse F11.10 [facility] [address] [address] 3183 Jul, [facility] [id number] [place] [address] 40368- 2732 Jul, [facility] [address] [place] [address] 96029- 0723 Jul, Opioid use disorder, mild, abuse F11.10 and BMI 50.0-59.9, adult Z68.43 [facility] [id number] [place] [address] 35283- 8490 Jun, Opioid use disorder, mild, abuse F11.10 and BMI 50.0-59.9, adult Z68.43 [facility] [id number] [place] [address] 02106- 8529 Jun, [facility] [id number] [place] [address] 83484- 1958 Jun, [facility] [id number] [place] [address] 72827- 8398 Jun, [facility] [id number] [place] [address] 39678- 6681 Jun, Opioid use disorder, mild, abuse F11.10 [facility] [address] [address] 1974 Jun, [facility] [address] [place] [address] 74887- 4719 19 Jun, 2018 Opioid use disorder, mild, abuse F11.10 [facility] [address], [place] [address]- 3932 18 Jun, 2018 BMI 45.0-49.9, adult Z68.42 and Opioid use disorder, mild, abuse F11.10 [facility] [address] [facility] [address] [id number] [id number] 12 Jun, 2018 [facility] [address] [address]- 5981 Jun, [place] [id number] [address]- 3771 Jun, [facility] [address] [place] [address] AVE [id number] [id number] Jun, Osteoarthritis of facet joint of lumbar spine M47.816 [place] [address] [address]- 3914 May, [facility] [address] [place] [address] AVE [id number][place] [id number] May, Essential hypertension I10 ; Type 2 diabetes mellitus without complication, without long-term current use of insulin E11.9 ; Osteoarthritis of facet joint of lumbar spine M47.816 ; Tobacco abuse Z72.0 ; Tobacco abuse counseling Z71.6 and BMI 45.0-49.9, adult Z68.42 [place] [id number] [place] [address] 41427- 5307 Nov, Osteoarthritis of carpometacarpal joints of both thumbs, unspecified osteoarthritis type M18.0 [place] [id number] [place] [address] 74446- 0194 Oct, Primary osteoarthritis, right hand M19.041 [place] [id number] [place] [address] 12352- 4825 Oct, Sebaceous cyst L72.3 [place] [id number] [place] [address] 45285- 2098 Sep, Primary osteoarthritis, right hand M19.041 ; Type 2 diabetes mellitus without complication, without long-term current use of insulin E11.9 ; 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 ; Essential hypertension I10 ; Coronary artery disease involving [place] coronary artery of [place] heart without angina pectoris I25.10 ; BRIA (obstructive sleep apnea) G47.33 ; COPD, mild J44.9 ; Non-healing skin lesion of nose L98.9 ; BMI 50.0- 59.9, adult Z68.43 and Encounter for immunization Z23 [place] [id number] [place] [address] 71433- 0936 11 Sep, 2017 Primary osteoarthritis, right hand M19.041 and 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 [place] [id number] [place] [address] 86850- 4642 Sep, Pain in right hand M79.641 and Pain of left hand M79.642 [place] [id number] [place] [address] 29602- 2849 Sep, Pain in right hand M79.641 and Pain of left hand M79.642 [place] [id number] [place] [address] 59789- 0935 Aug, [place] [id number] [place] [address] 65544- 7731 Aug, [place] [id number] [place] [address] 84540- 6058 Aug, Type 2 diabetes mellitus without complication, without long- term current use of insulin E11.9 ; Essential hypertension I10 ; Coronary artery disease involving [place] coronary artery of [place] heart without angina pectoris I25.10 ; BRIA (obstructive sleep apnea) G47.33 ; Nocturnal hypoxemia G47.34 ; COPD, mild J44.9 ; Low back pain M54.5 and BMI 40.0-44.9, adult Z68.41 [place] [id number] [place] [address] 53519- 0896 Jul, IMMUNIZATIONS No Known Immunizations SOCIAL HISTORY Never Assessed REASON FOR VISIT SUBAB F/U PLAN OF CARE VITAL SIGNS MEDICATIONS Unknown Medications RESULTS No Results PROCEDURES Procedure Date Ordered Result Body Site Alcohol and/or drug services Aug 06, 2018 INSTRUCTIONS MEDICATIONS ADMINISTERED No Known Medications MEDICAL (GENERAL) HISTORY Type Description Date Medical History type II diabetes- 2006 Medical History hypertension- 20 years 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 was on hydrocodone and morphine and then methadone at pain managment at [place] and then used hydrocodone from pain management [...]
--- OUTSIDE RECORDS SUMMARY | 2018-10-29 05:07 | XMS REPORT ---
Author Author MARÍA ELENA SUNSHINE Organization [facility] Address [address] [place] [address] Care Team Providers Care Pmo Lead Name Role Phone MARÍA ELENA SUNSHINE Unavailable PROBLEMS Type Condition ICD9-CM Code IQO92-QP Code Onset Dates Condition Status SNOMED Code Problem COPD, mild J44.9 Active 177638611 Problem BRIA (obstructive sleep apnea) G47.33 Active 25602827 Problem Coronary artery disease involving [place] coronary artery of [place] heart without angina pectoris I25.10 Active 1242469459407 Problem Opioid use disorder, mild, abuse F11.10 Active 9589297 Problem Osteoarthritis of facet joint of lumbar spine M47.816 Active 693687426 Problem Essential hypertension I10 Active 75874620 Problem Nocturnal hypoxemia G47.34 Active 038038854 Problem Tobacco abuse counseling Z71.6 Active 548428087 Problem Tobacco abuse Z72.0 Active 855961517 Problem Primary osteoarthritis, right hand M19.041 Active 1000134824933199 Problem Type 2 diabetes mellitus without complication, without long-term current use of insulin E11.9 Active 364575362 Problem Abnormal glucose R73.09 Active 283969534 Problem Low back pain M54.5 Active 211069365 Problem 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 Active 06018190 Problem Obstructive sleep apnea (adult) (pediatric) G47.33 Active 33037362 ALLERGIES Substance Reaction Event Type Date Status Lyrica irritability Drug Allergy Jul, Active Flexeril nausea Drug Allergy Jul, Active ENCOUNTERS Encounter Location Date Diagnosis [facility] [address] [facility] [id number], [place] [address] Jul, [facility] [address] [id number], [place] [address]- 4413 Jul, [facility] [address] [id number], [place] [address]- 2373 Jul, Opioid use disorder, mild, abuse F11.10 [facility] [address], [place] [address]- 4463 Jul, [facility] [id number] [place] [address] 14310- 1244 Jul, [facility] [id number] [place] [address] 64143- 8056 Jul, Opioid use disorder, mild, abuse F11.10 and BMI 50.0-59.9, adult Z68.43 [facility] [id number] [place] [address] 18002- 6381 Jun, Opioid use disorder, mild, abuse F11.10 and BMI 50.0-59.9, adult Z68.43 [facility] [id number] [place] [address] 38575- 4633 Jun, [facility] [id number] [place] [address] 47533- 1001 Jun, [facility] [id number] [place] [address] 56724- 1780 Jun, [facility] [id number] [place] [address] 83086- 6623 Jun, Opioid use disorder, mild, abuse F11.10 [facility] [address] [place] [address] 08160- 7922 Jun, [facility] [id number] [place] [address] 26808- 0190 Jun, Opioid use disorder, mild, abuse F11.10 [facility] [id number] [place] [address] 10813- 3115 18 Jun, 2018 BMI 45.0-49.9, adult Z68.42 and Opioid use disorder, mild, abuse F11.10 [place] [address] [facility] [id number] [id number] Jun, [place] [address]100[place], [place] [address]- 6117 Jun, [place] [address]100[place], [place] [address]- 6406 Jun, [facility] [address] [place] [address] AV [id number] [id number] Jun, Osteoarthritis of facet joint of lumbar spine M47.816 [place] [address] [place] [address] 94874- 9191 May, [facility] [id number][place] [id number] May, Essential hypertension I10 ; Type 2 diabetes mellitus without complication, without long-term current use of insulin E11.9 ; Osteoarthritis of facet joint of lumbar spine M47.816 ; Tobacco abuse Z72.0 ; Tobacco abuse counseling Z71.6 and BMI 45.0-49.9, adult Z68.42 [place] [address] [place] [address] 85949- 9778 Nov, Osteoarthritis of carpometacarpal joints of both thumbs, unspecified osteoarthritis type M18.0 [place] [address] [place] [address] 18995- 9166 Oct, Primary osteoarthritis, right hand M19.041 [place] [address] [place] [address] 28750- 0673 Oct, Sebaceous cyst L72.3 [place] [address] [place] [address] 21425- 7868 Sep, Primary osteoarthritis, right hand M19.041 ; Type 2 diabetes mellitus without complication, without long-term current use of insulin E11.9 ; 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 ; Essential hypertension I10 ; Coronary artery disease involving [place] coronary artery of [place] heart without angina pectoris I25.10 ; BRIA (obstructive sleep apnea) G47.33 ; COPD, mild J44.9 ; Non-healing skin lesion of nose L98.9 ; BMI 50.0- 59.9, adult Z68.43 and Encounter for immunization Z23 [place] [id number] [place] [address] 29601- 9880 Sep, Primary osteoarthritis, right hand M19.041 and 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 [place] [id number] [place] [address] 03527- 2347 Sep, Pain in right hand M79.641 and Pain of left hand M79.642 [place] [id number] [place] [address] 98641- 2314 Sep, Pain in right hand M79.641 and Pain of left hand M79.642 [place] [id number] [place] [address] 76666- 9237 Aug, [place] [id number] [place] [address] 11480- 5377 Aug, [place] [id number] [place] [address] 16085- 2359 Aug, Type 2 diabetes mellitus without complication, without long- term current use of insulin E11.9 ; Essential hypertension I10 ; Coronary artery disease involving [place] coronary artery of [place] heart without angina pectoris I25.10 ; BRIA (obstructive sleep apnea) G47.33 ; Nocturnal hypoxemia G47.34 ; COPD, mild J44.9 ; Low back pain M54.5 and BMI 40.0-44.9, adult Z68.41 [place] [address] [place] [address] 22300- 9058 Jul, IMMUNIZATIONS No Known Immunizations SOCIAL HISTORY Never Assessed REASON FOR VISIT MAT F/U, pt states can't afford test strips. pt states doing good. Lorna MARROQUIN , Pt would like to have all stuff transferred from [place] to [facility]. Pt would like to get vision checked as well. Lorna MARROQUIN PLAN OF CARE Activity Details Follow Up 4 Weeks Reason: VITAL SIGNS Height 63 in 2018-08-05 Weight 289.6 lbs 2018-08-05 Temperature 97.6 degrees Fahrenheit 2018-08-05 Heart Rate 99 bpm 2018-08-05 BMI 51.29 kg/m2 2018-08-05 Blood pressure systolic 150 mmHg 2018-08-05 Blood pressure diastolic 80 mmHg 2018-08-05 MEDICATIONS Medication Instructions Dosage Frequency Start Date End Date Duration Status Lisinopril 10 mg Orally Once a day 1 tablet 24h 90 days Active Gabapentin 400 mg Orally 3 times a day 1 capsule 8h May, Active Melatonin 3 MG Orally Once a day 3 tablets at bedtime as needed with food 24h Active Zanaflex 4 MG Orally 2 times a day 1 capsule as needed for muscle pain 12h May, Aug, 30 days Active Atenolol 50 MG Orally Once a day 1 tablet 24h 90 days Active Aspir-81 81 MG Orally Once a day 1 tablet 24h May, 16 May, 2019 90 days Active Suboxone 8-2 MG Sublingual 2 times a day 1 film under the tongue and allow to dissolve 12h Jun, 8 Jul, 2018 13 days Active MetFORMIN HCl ER 500 mg Orally Once a day 1 tablet with evening meal 24h May, 90 days Active RESULTS No Results PROCEDURES No Known procedures INSTRUCTIONS MEDICATIONS ADMINISTERED No Known Medications MEDICAL (GENERAL) HISTORY Type Description Date Medical History type II diabetes- 2006 Medical History hypertension- 20 years 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 was on hydrocodone and morphine and then methadone at pain managment at [place] and then used hydrocodone from pain management [...]
--- OUTSIDE RECORDS SUMMARY | 2018-10-29 05:07 | XMS REPORT ---
Author Author MARÍA ELENA SUNSHINE Organization [facility] Address [address] [place] [address] Care Team Providers Care Procedural Nurse Name Role Phone MARÍA ELENA SUSNHINE Unavailable PROBLEMS Type Condition ICD9-CM Code ATO62-GQ Code Onset Dates Condition Status SNOMED Code Problem COPD, mild J44.9 Active 773659211 Problem BRIA (obstructive sleep apnea) G47.33 Active 84263109 Problem Coronary artery disease involving solomon coronary artery of solomon heart without angina pectoris I25.10 Active 6673720396503 Problem Opioid use disorder, mild, abuse F11.10 Active 5713817 Problem Osteoarthritis of facet joint of lumbar spine M47.816 Active 588794457 Problem Essential hypertension I10 Active 85028756 Problem Nocturnal hypoxemia G47.34 Active 157995073 Problem Tobacco abuse counseling Z71.6 Active 817241911 Problem Tobacco abuse Z72.0 Active 943124609 Problem Primary osteoarthritis, right hand M19.041 Active 3753437465889249 Problem Type 2 diabetes mellitus without complication, without long-term current use of insulin E11.9 Active 303111017 Problem Abnormal glucose R73.09 Active 058696214 Problem Low back pain M54.5 Active 993634091 Problem 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 Active 27631831 Problem Obstructive sleep apnea (adult) (pediatric) G47.33 Active 82943220 ALLERGIES Substance Reaction Event Type Date Status Lyrica irritability Drug Allergy Jul, Active Flexeril nausea Drug Allergy Jul, Active ENCOUNTERS Encounter Location Date Diagnosis [facility] [address] [facility] [id number] [address] Aug, [facility] [address] [id number] [address] Aug, [facility] [address] [id number] [address] Aug, [facility] [id number] [place] [address]496- 8195 Jul, [facility] [id number] [place] [id number] Jul, Essential hypertension I10 ; Type 2 diabetes mellitus without complication, without long-term current use of insulin E11.9 and BMI 50.0-59.9, adult Z68.43 [place] [address] [place] [address] [address]- [address] Jul, BMI 50.0-59.9, adult Z68.43 and Opioid use disorder, mild, abuse F11.10 [place] [id number] [place] [address]60- 0269 Jul, [place] [address] [address] Jul, Opioid use disorder, mild, abuse F11.10 [place] [id number] [place] [address] 39801- 3583 Jul, Opioid use disorder, mild, abuse F11.10 [place] [id number] [place] [address] 42418- 5573 Jul, Opioid use disorder, mild, abuse F11.10 [place] [id number] [place] [address] 02925- 4696 Jul, [place] [id number] [place] [address] 75719- 3533 Jul, [place] [id number] [place] [address] 75366- 2302 Jul, Opioid use disorder, mild, abuse F11.10 and BMI 50.0-59.9, adult Z68.43 [facility] [id number] [place] [address] 45032- 0150 Jun, Opioid use disorder, mild, abuse F11.10 and BMI 50.0-59.9, adult Z68.43 [facility] [address] [address] Jun, [facility] [id number] [place] [address] 054248- 0052 Jun, [facility] [id number] [place] [address] 78799- 5179 Jun, [facility] [id number] [place] [address] 281869- 2140 Jun, Opioid use disorder, mild, abuse F11.10 [facility] [id number] [place] [address] 348463- 6772 20 Jun, 2018 [facility] [id number] [place] [address] 139699- 1322 19 Jun, 2018 Opioid use disorder, mild, abuse F11.10 [facility] [id number] [place] [address] 69639- 3353 18 Jun, 2018 BMI 45.0-49.9, adult Z68.42 and Opioid use disorder, mild, abuse F11.10 [facility] [address] [id number] [id number] Jun, [facility] [address] [address] Jun, [facility] [address] [place] [address] 87501- 6057 Jun, [facility] [address] [id number] [id number] 05 Jun, 2018 Osteoarthritis of facet joint of lumbar spine M47.816 [facility] [address] [place] [address] 73074- 5102 May, [facility] [address] [id number] [id number] May, Essential hypertension I10 ; Type 2 diabetes mellitus without complication, without long-term current use of insulin E11.9 ; Osteoarthritis of facet joint of lumbar spine M47.816 ; Tobacco abuse Z72.0 ; Tobacco abuse counseling Z71.6 and BMI 45.0-49.9, adult Z68.42 [place] [address] [place] [address] 27255- 5654 15 Nov, 2017 Osteoarthritis of carpometacarpal joints of both thumbs, unspecified osteoarthritis type M18.0 [place] [id number] [place] [address] 37640- 2148 Oct, Primary osteoarthritis, right hand M19.041 [place] [id number] [place] [address] 57272- 2897 Oct, Sebaceous cyst L72.3 [place] [id number] [place] [address] 54902- 3472 Sep, Primary osteoarthritis, right hand M19.041 ; Type 2 diabetes mellitus without complication, without long-term current use of insulin E11.9 ; 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 ; Essential hypertension I10 ; Coronary artery disease involving solomon coronary artery of solomon heart without angina pectoris I25.10 ; BRIA (obstructive sleep apnea) G47.33 ; COPD, mild J44.9 ; Non-healing skin lesion of nose L98.9 ; BMI 50.0- 59.9, adult Z68.43 and Encounter for immunization Z23 [place] [id number] [place] [address] 38746- 1404 Sep, Primary osteoarthritis, right hand M19.041 and 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 [place] [id number] [place] [address] 59201- 4338 Sep, Pain in right hand M79.641 and Pain of left hand M79.642 [place] [id number] [place] [address] 08010- 5983 05 Sep, 2017 Pain in right hand M79.641 and Pain of left hand M79.642 [place] [id number] [place] [address] 51359- 1082 Aug, [facility] [address] [facility] [id number] [place] [address] Aug, [facility] [address] [facility] [id number] [address] Aug, Type 2 diabetes mellitus without complication, without long- term current use of insulin E11.9 ; Essential hypertension I10 ; Coronary artery disease involving solomon coronary artery of solomon heart without angina pectoris I25.10 ; BRIA (obstructive sleep apnea) G47.33 ; Nocturnal hypoxemia G47.34 ; COPD, mild J44.9 ; Low back pain M54.5 and BMI 40.0-44.9, adult Z68.41 [place] [address] [facility] [id number], [place] [address] Jul, IMMUNIZATIONS No Known Immunizations SOCIAL HISTORY Never Assessed REASON FOR VISIT MAT f/u laverne moreno PLAN OF CARE Activity Details Follow Up 6 Weeks Reason:MAT Pending Test PDM - ATS (PROFILE 8) Pending Test PDM - AMPHETAMINES W/ REFLEX d/l ISOMERS VITAL SIGNS Height 63 in 2018-08-22 Weight 293.5 lbs 2018-08-22 Temperature 97.9 degrees Fahrenheit 2018-08-22 Heart Rate irregular:66 bpm 2018-08-22 Respiratory Rate 22 2018-08-22 BMI 51.99 kg/m2 2018-08-22 Blood pressure systolic 128 mmHg 2018-08-22 Blood pressure diastolic 80 mmHg 2018-08-22 MEDICATIONS Medication Instructions Dosage Frequency Start Date End Date Duration Status Aspir-81 81 MG Orally Once a day 1 tablet 24h May, May, 90 days Active Atenolol 50 MG Orally Once a day 1 tablet 24h 90 days Active Lisinopril 10 mg Orally Once a day 1 tablet 24h 90 days Active Ibuprofen 200 mg Orally twice a day 4 tablets with food or milk as needed 12h Active MetFORMIN HCl ER 500 mg Orally Once a day 1 tablet with evening meal 24h May, 90 days Active Gabapentin 400 mg Orally 3 times a day 1 capsule 8h May, Active Melatonin 3 MG Orally Once a day 3 tablets at bedtime as needed with food 24h Active Zanaflex 4 MG Orally 2 times a day 1 capsule as needed for muscle pain 12h May, Aug, 30 days Active Suboxone 8-2 MG Sublingual 2 times a day 1 film under the tongue and allow to dissolve 12h Jun, 9 days Active RESULTS No Results PROCEDURES Procedure Date Ordered Result Body Site DRUG TEST PRSMV CHEM ANLYZR Aug 22, 2018 DRUG SCREEN AMPHETAMINES /2 Aug 22, 2018 INSTRUCTIONS MEDICATIONS ADMINISTERED No Known Medications MEDICAL (GENERAL) HISTORY Type Description Date Medical History type II diabetes- 2006 Medical History hypertension- 20 years 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 was on hydrocodone and morphine and then methadone at pain managment at [place] and then used hydrocodone from pain management [...]
--- OUTSIDE RECORDS SUMMARY | 2018-10-29 05:07 | XMS REPORT ---
Author Author MARÍA ELENA SUNSHINE [facility] Address [address] 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 Role Phone MARÍA ELENA SUNSHINE Unavailable PROBLEMS Type Condition ICD9-CM Code LND40-VW Code Onset Dates Condition Status SNOMED Code Problem COPD, mild J44.9 Active 083540740 Problem BRIA (obstructive sleep apnea) G47.33 Active 13366873 Problem Coronary artery disease involving ekwok coronary artery of ekwok heart without angina pectoris I25.10 Active 7425439256216 Problem Opioid use disorder, mild, abuse F11.10 Active 8315404 Problem Osteoarthritis of facet joint of lumbar spine M47.816 Active 580630854 Problem Essential hypertension I10 Active 74575193 Problem Nocturnal hypoxemia G47.34 Active 936902110 Problem Tobacco abuse counseling Z71.6 Active 348064023 Problem Tobacco abuse Z72.0 Active 137467863 Problem Primary osteoarthritis, right hand M19.041 Active 6863191836579810 Problem Type 2 diabetes mellitus without complication, without long-term current use of insulin E11.9 Active 545506936 Problem Abnormal glucose R73.09 Active 338573167 Problem Low back pain M54.5 Active 773410749 Problem 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 Active 72490006 Problem Obstructive sleep apnea (adult) (pediatric) G47.33 Active 13474511 ALLERGIES No Information ENCOUNTERS Encounter Location Date Diagnosis [facility] [address] [facility] [id number] [address] Aug, [facility] [address] [place] [address] 95578- 9921 14 Aug, 2018 [facility] [address], [place] [address]- 6[address] 02 Aug, 2018 [facility] [address] [place] [address] 09381- 9821 Jul, [place] [id number] [place] [address] Jul, Essential hypertension I10 ; Type 2 diabetes mellitus without complication, without long-term current use of insulin E11.9 and BMI 50.0-59.9, adult Z68.43 [place] [id number] [place] [address] Jul, BMI 50.0-59.9, adult Z68.43 and Opioid use disorder, mild, abuse F11.10 [place] [address] [address] 680327- 3984 Jul, [place] [address] [address] 680328- 2282 Jul, Opioid use disorder, mild, abuse F11.10 [place] [address] [address] 680320- 1824 Jul, Opioid use disorder, mild, abuse F11.10 [place] [id number] [place] [address] 13731- 1381 Jul, Opioid use disorder, mild, abuse F11.10 [place] [id number] [place] [address] Jul, [place] [id number] [place] [address] 89983- 4419 Jul, [place] [address] [place] [address] 680326- 1214 Jul, Opioid use disorder, mild, abuse F11.10 and BMI 50.0-59.9, adult Z68.43 [place] [address] [place] [address] 680328- 1145 Jun, Opioid use disorder, mild, abuse F11.10 and BMI 50.0-59.9, adult Z68.43 [place] [address] [place] [address] [id number]- 6786 Jun, [facility] [address], [place] [address]- 6793 Jun, [facility] [id number] [place] [address] 208377- 0132 Jun, [facility] [id number] [place] [address] 86225- 2259 Jun, Opioid use disorder, mild, abuse F11.10 [facility] [id number] [place] [address] 34482- 0812 20 Jun, 2018 [facility] [id number] [place] [address] 347759- 8258 19 Jun, 2018 Opioid use disorder, mild, abuse F11.10 [facility] [id number] [place] [address] 77616- 4802 18 Jun, 2018 BMI 45.0-49.9, adult Z68.42 and Opioid use disorder, mild, abuse F11.10 [facility] [address] [id number] [id number] Jun, [facility] [id number] [place] [address] 57900- 4659 Jun, [facility] [address], [place] [address]- 1309 Jun, [facility] [address] [id number] [id number] Jun, Osteoarthritis of facet joint of lumbar spine M47.816 [facility] [address] [id number], [place] [address]- 1141 May, [facility] [address] [id number] [id number] May, Essential hypertension I10 ; Type 2 diabetes mellitus without complication, without long-term current use of insulin E11.9 ; Osteoarthritis of facet joint of lumbar spine M47.816 ; Tobacco abuse Z72.0 ; Tobacco abuse counseling Z71.6 and BMI 45.0-49.9, adult Z68.42 [place] [id number] [place] [address] 51099- 6756 15 Nov, 2017 Osteoarthritis of carpometacarpal joints of both thumbs, unspecified osteoarthritis type M18.0 [place] [id number] [place] [address] 98788- 0036 Oct, Primary osteoarthritis, right hand M19.041 [place] [address] [address]- 4379 Oct, Sebaceous cyst L72.3 [place] [address] 8[address]18- 1699 Sep, Primary osteoarthritis, right hand M19.041 ; Type 2 diabetes mellitus without complication, without long-term current use of insulin E11.9 ; 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 ; Essential hypertension I10 ; Coronary artery disease involving ekwok coronary artery of ekwok heart without angina pectoris I25.10 ; BRIA (obstructive sleep apnea) G47.33 ; COPD, mild J44.9 ; Non-healing skin lesion of nose L98.9 ; BMI 50.0- 59.9, adult Z68.43 and Encounter for immunization Z23 [place] [address] 15244- 2437 11 Sep, 2017 Primary osteoarthritis, right hand M19.041 and 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 [place] [id number] [place] [address] 68264- 3613 Sep, Pain in right hand M79.641 and Pain of left hand M79.642 [place] [address] [address]268- 7075 05 Sep, 2017 Pain in right hand M79.641 and Pain of left hand M79.642 [place] [id number] [place] [address] 91124- 0362 Aug, [place] [address] 62668- 2546 Aug, [facility] [address] [facility] [id number] [place] [address]- [address]46 Aug, Type 2 diabetes mellitus without complication, without long- term current use of insulin E11.9 ; Essential hypertension I10 ; Coronary artery disease involving ekwok coronary artery of ekwok heart without angina pectoris I25.10 ; BRIA (obstructive sleep apnea) G47.33 ; Nocturnal hypoxemia G47.34 ; COPD, mild J44.9 ; Low back pain M54.5 and BMI 40.0-44.9, adult Z68.41 [facility] [address] [facility] [id number] [place] [address]- 2546 Jul, IMMUNIZATIONS No Known Immunizations SOCIAL HISTORY Never Assessed REASON FOR VISIT SUBAB F/U PLAN OF CARE VITAL SIGNS MEDICATIONS Unknown Medications RESULTS No Results PROCEDURES Procedure Date Ordered Result Body Site Alcohol and/or drug services Aug 23, 2018 INSTRUCTIONS MEDICATIONS ADMINISTERED No Known Medications MEDICAL (GENERAL) HISTORY Type Description Date Medical History type II diabetes- 2006 Medical History hypertension- 20 years 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 was on hydrocodone and morphine and then methadone at pain managment at [place] and then used hydrocodone from pain management [...]
--- OUTSIDE RECORDS SUMMARY | 2018-10-29 05:07 | XMS REPORT ---
Author Author MARÍA ELENA SUNSHINE Organization [facility] Address [address] 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 Name Role Phone MARÍA ELENA SUNSHINE Unavailable PROBLEMS Type Condition ICD9-CM Code UPP71-EL Code Onset Dates Condition Status SNOMED Code Problem COPD, mild J44.9 Active 384655793 Problem BRIA (obstructive sleep apnea) G47.33 Active 95060441 Problem Coronary artery disease involving kluti kaah coronary artery of kluti kaah heart without angina pectoris I25.10 Active 1124080277819 Problem Opioid use disorder, mild, abuse F11.10 Active 7213388 Problem Osteoarthritis of facet joint of lumbar spine M47.816 Active 645349742 Problem Essential hypertension I10 Active 59293482 Problem Nocturnal hypoxemia G47.34 Active 140879182 Problem Tobacco abuse counseling Z71.6 Active 170334217 Problem Tobacco abuse Z72.0 Active 095540922 Problem Primary osteoarthritis, right hand M19.041 Active [id number] Problem Type 2 diabetes mellitus without complication, without long-term current use of insulin E11.9 Active 642630928 Problem Abnormal glucose R73.09 Active 271992670 Problem Low back pain M54.5 Active 454061550 Problem 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 Active 44410889 Problem Obstructive sleep apnea (adult) (pediatric) G47.33 Active 78801966 ALLERGIES No Information ENCOUNTERS Encounter Location Date Diagnosis [facility] [address] [facility] [id number] [address] Jul, [facility] [address] [address] Jul, [facility] [id number] [address] Jul, Opioid use disorder, mild, abuse F11.10 [facility] [address], [place] [address] Jul, [facility] [id number] [place] [address] 52863- 3444 Jul, [facility] [address] [place] [address] 91407- 6454 Jul, Opioid use disorder, mild, abuse F11.10 and BMI 50.0-59.9, adult Z68.43 [facility] [id number] [place] [address] 35569- 7666 Jun, Opioid use disorder, mild, abuse F11.10 and BMI 50.0-59.9, adult Z68.43 [facility] [id number] [place] [address] 83606- 1939 Jun, [facility] [id number] [place] [address] 84007- 5945 Jun, [facility] [id number] [place] [address] 40461- 3780 Jun, [facility] [id number] [place] [address] 86279- 2417 Jun, Opioid use disorder, mild, abuse F11.10 [facility] [address], [place] [address] Jun, [facility] [address] [place] [address] 77341- 1818 19 Jun, 2018 Opioid use disorder, mild, abuse F11.10 [facility] [address], [place] [address] 18 Jun, 2018 BMI 45.0-49.9, adult Z68.42 and Opioid use disorder, mild, abuse F11.10 [facility] [address] [facility] [address] [id number] [id number] 12 Jun, 2018 [facility] [address], [place] [address] Jun, [place] [id number], [place] [address] Jun, [facility] [address] [place] [address] AVE [id number] [id number] Jun, Osteoarthritis of facet joint of lumbar spine M47.816 [place] [address], [place] [address] May, [facility] [address] [place] [address] AVE [id number] [id number] May, Essential hypertension I10 ; Type 2 diabetes mellitus without complication, without long-term current use of insulin E11.9 ; Osteoarthritis of facet joint of lumbar spine M47.816 ; Tobacco abuse Z72.0 ; Tobacco abuse counseling Z71.6 and BMI 45.0-49.9, adult Z68.42 [place] [id number] [place] [address] 02976- 0119 Nov, Osteoarthritis of carpometacarpal joints of both thumbs, unspecified osteoarthritis type M18.0 [place] [id number] [place] [address] 60352- 6447 Oct, Primary osteoarthritis, right hand M19.041 [place] [id number] [place] [address] 51965- 2361 Oct, Sebaceous cyst L72.3 [place] [id number] [place] [address] 51555- 2284 Sep, Primary osteoarthritis, right hand M19.041 ; Type 2 diabetes mellitus without complication, without long-term current use of insulin E11.9 ; 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 ; Essential hypertension I10 ; Coronary artery disease involving kluti kaah coronary artery of kluti kaah heart without angina pectoris I25.10 ; BRIA (obstructive sleep apnea) G47.33 ; COPD, mild J44.9 ; Non-healing skin lesion of nose L98.9 ; BMI 50.0- 59.9, adult Z68.43 and Encounter for immunization Z23 [place] [id number] [place] [address] 00654- 5187 11 Sep, 2017 Primary osteoarthritis, right hand M19.041 and 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 [place] [id number] [place] [address] 71885- 0054 Sep, Pain in right hand M79.641 and Pain of left hand M79.642 [place] [id number] [place] [address] 22870- 9113 Sep, Pain in right hand M79.641 and Pain of left hand M79.642 [place] [id number] [place] [address] 79002- 3171 Aug, [place] [id number] [place] [address] 25738- 7235 Aug, [place] [id number] [place] [address] 44248- 9366 Aug, Type 2 diabetes mellitus without complication, without long- term current use of insulin E11.9 ; Essential hypertension I10 ; Coronary artery disease involving kluti kaah coronary artery of kluti kaah heart without angina pectoris I25.10 ; BRIA (obstructive sleep apnea) G47.33 ; Nocturnal hypoxemia G47.34 ; COPD, mild J44.9 ; Low back pain M54.5 and BMI 40.0-44.9, adult Z68.41 [place] [id number] [place] [address] 57401- 7794 Jul, IMMUNIZATIONS No Known Immunizations SOCIAL HISTORY Never Assessed REASON FOR VISIT Transport, ATS: Routine Follow Up PLAN OF CARE VITAL SIGNS MEDICATIONS Unknown Medications RESULTS No Results PROCEDURES No Known procedures INSTRUCTIONS MEDICATIONS ADMINISTERED No Known Medications MEDICAL (GENERAL) HISTORY Type Description Date Medical History type II diabetes- 2006 Medical History hypertension- 20 years 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 was on hydrocodone and morphine and then methadone at pain managment at [place] and then used hydrocodone from pain management [...]
--- OUTSIDE RECORDS SUMMARY | 2018-10-29 05:08 | XMS REPORT ---
Author Author MARÍA ELENA SUNSHINE Organization [facility] Address [address] 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 Role Phone MARÍA ELENA SUNSHINE Unavailable PROBLEMS Type Condition ICD9-CM Code ECA86-HH Code Onset Dates Condition Status SNOMED Code Problem COPD, mild J44.9 Active 642315909 Problem BRIA (obstructive sleep apnea) G47.33 Active 21288565 Problem Coronary artery disease involving chitina coronary artery of chitina heart without angina pectoris I25.10 Active 5717321563270 Problem Opioid use disorder, mild, abuse F11.10 Active 4880714 Problem Osteoarthritis of facet joint of lumbar spine M47.816 Active 235095980 Problem Essential hypertension I10 Active 18509769 Problem Nocturnal hypoxemia G47.34 Active 788167329 Problem Tobacco abuse counseling Z71.6 Active 175178502 Problem Tobacco abuse Z72.0 Active 627141983 Problem Primary osteoarthritis, right hand M19.041 Active 7199024957361042 Problem Type 2 diabetes mellitus without complication, without long-term current use of insulin E11.9 Active 231292627 Problem Abnormal glucose R73.09 Active 508277028 Problem Low back pain M54.5 Active 616434327 Problem 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 Active 84305339 Problem Obstructive sleep apnea (adult) (pediatric) G47.33 Active 76840465 ALLERGIES Substance Reaction Event Type Date Status Lyrica irritability Drug Allergy Jun, Active Flexeril nausea Drug Allergy Jun, Active ENCOUNTERS Encounter Location Date Diagnosis [facility] [address] [facility] [id number] [address] Jul, [facility] [address] [facility] [id number] [place] [address] Jun, Opioid use disorder, mild, abuse F11.10 and BMI 50.0-59.9, adult Z68.43 [facility] [address] [address] 25 Jun, 2018 [facility] [id number] [place] [address] 23435- 7005 Jun, [facility] [id number] [place] [address] 45068- 0093 Jun, [facility] [id number] [place] [address] 780816- 7486 21 Jun, 2018 Opioid use disorder, mild, abuse F11.10 [facility] [id number] [place] [address] 49827- 7775 20 Jun, 2018 [facility] [id number] [place] [address] 920026- 7444 19 Jun, 2018 Opioid use disorder, mild, abuse F11.10 [facility] [id number] [place] [address] 793758- 4454 18 Jun, 2018 BMI 45.0-49.9, adult Z68.42 and Opioid use disorder, mild, abuse F11.10 [facility] [address] [id number] [id number] Jun, [facility] [address]65[address] [address]- 7[address] Jun, [facility] [address]65100[place] [address] 5721 Jun, [facility] [address] [id number] [id number] 05 Jun, 2018 Osteoarthritis of facet joint of lumbar spine M47.816 [facility] [address] [address]- 0369 May, [facility] [address] [id number] [id number] May, Essential hypertension I10 ; Type 2 diabetes mellitus without complication, without long-term current use of insulin E11.9 ; Osteoarthritis of facet joint of lumbar spine M47.816 ; Tobacco abuse Z72.0 ; Tobacco abuse counseling Z71.6 and BMI 45.0-49.9, adult Z68.42 [place] [id number] [place] [address] 57913- 6731 15 Nov, 2017 Osteoarthritis of carpometacarpal joints of both thumbs, unspecified osteoarthritis type M18.0 [place] [id number] [place] [address] 62660- 6169 Oct, Primary osteoarthritis, right hand M19.041 [place] [id number] [place] [address] 51443- 7165 Oct, Sebaceous cyst L72.3 [place] [id number] [place] [address] 42448- 8251 Sep, Primary osteoarthritis, right hand M19.041 ; Type 2 diabetes mellitus without complication, without long-term current use of insulin E11.9 ; 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 ; Essential hypertension I10 ; Coronary artery disease involving chitina coronary artery of chitina heart without angina pectoris I25.10 ; BRIA (obstructive sleep apnea) G47.33 ; COPD, mild J44.9 ; Non-healing skin lesion of nose L98.9 ; BMI 50.0- 59.9, adult Z68.43 and Encounter for immunization Z23 [place] [id number] [place] [address] 04845- 3941 Sep, Primary osteoarthritis, right hand M19.041 and 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 [place] [id number] [place] [address] 30355- 4230 Sep, Pain in right hand M79.641 and Pain of left hand M79.642 [place] [id number] [place] [address] 13277- 6248 Sep, Pain in right hand M79.641 and Pain of left hand M79.642 [place] [address] [address]69- 0373 Aug, [place] [address] [facility] [id number] [address] 2546 Aug, [place] [address] [facility] [id number] [address] 2546 Aug, Type 2 diabetes mellitus without complication, without long- term current use of insulin E11.9 ; Essential hypertension I10 ; Coronary artery disease involving chitina coronary artery of chitina heart without angina pectoris I25.10 ; BRIA (obstructive sleep apnea) G47.33 ; Nocturnal hypoxemia G47.34 ; COPD, mild J44.9 ; Low back pain M54.5 and BMI 40.0-44.9, adult Z68.41 [place] [address] [facility] [id number] [place] [address]- [address]81 Jul, IMMUNIZATIONS No Known Immunizations SOCIAL HISTORY Never Assessed REASON FOR VISIT MAT F/U, pt is going to [place] to help family and will be gone for 7-8 days, will be back by 08/05 at the latest PLAN OF CARE Activity Details Follow Up 4 Weeks Reason: VITAL SIGNS Height 63 in 2018-07-23 Weight 290.4 lbs 2018-07-23 Temperature 98.1 degrees Fahrenheit 2018-07-23 Heart Rate 73 bpm 2018-07-23 Respiratory Rate 22 2018-07-23 BMI 51.44 kg/m2 2018-07-23 Blood pressure systolic 160 mmHg 2018-07-23 Blood pressure diastolic 94 mmHg 2018-07-23 MEDICATIONS Medication Instructions Dosage Frequency Start Date End Date Duration Status MetFORMIN HCl ER 500 mg Orally Once a day 1 tablet with evening meal 24h May, 90 days Active Aspir-81 81 MG Orally Once a day 1 tablet 24h May, May, 90 days Active Suboxone 8-2 MG Sublingual 2 times a day 1 film under the tongue and allow to dissolve 12h Jun, Jul, 13 days Active Gabapentin 400 mg Orally 3 times a day 1 capsule 8h May, Active Zanaflex 4 MG Orally 2 times a day 1 capsule as needed for muscle pain 12h May, Aug, 30 days Active Lisinopril 10 mg Orally Once a day 1 tablet 24h 90 days Active Atenolol 50 MG Orally Once a day 1 tablet 24h 90 days Active Melatonin 3 MG Orally Once a day 3 tablets at bedtime as needed with food 24h Active RESULTS No Results PROCEDURES No Known procedures INSTRUCTIONS MEDICATIONS ADMINISTERED No Known Medications MEDICAL (GENERAL) HISTORY Type Description Date Medical History type II diabetes- 2006 Medical History hypertension- 20 years 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 was on hydrocodone and morphine and then methadone at pain managment at [place] and then used hydrocodone from pain management [...]
--- OUTSIDE RECORDS SUMMARY | 2018-10-29 05:08 | XMS REPORT ---
Author Author MARÍA ELENA SUNSHINE Organization [facility] Address [address] [place] [address] Care Team Providers Care Outside Sales Representative Name Role Phone MARÍA ELENA SUNSHINE Unavailable PROBLEMS Type Condition ICD9-CM Code YBU89-QK Code Onset Dates Condition Status SNOMED Code Problem COPD, mild J44.9 Active 236841648 Problem BRIA (obstructive sleep apnea) G47.33 Active 98465714 Problem Coronary artery disease involving chinik coronary artery of chinik heart without angina pectoris I25.10 Active 7210091425353 Problem Opioid use disorder, mild, abuse F11.10 Active 1476711 Problem Osteoarthritis of facet joint of lumbar spine M47.816 Active 995915283 Problem Essential hypertension I10 Active 89548414 Problem Nocturnal hypoxemia G47.34 Active 892626013 Problem Tobacco abuse counseling Z71.6 Active 252275702 Problem Tobacco abuse Z72.0 Active 985750132 Problem Primary osteoarthritis, right hand M19.041 Active 2869997112098709 Problem Type 2 diabetes mellitus without complication, without long-term current use of insulin E11.9 Active 160189353 Problem Abnormal glucose R73.09 Active 561142609 Problem Low back pain M54.5 Active 742989397 Problem 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 Active 52564593 Problem Obstructive sleep apnea (adult) (pediatric) G47.33 Active 50995194 ALLERGIES No Information ENCOUNTERS Encounter Location Date Diagnosis [facility] [address] [facility] [id number] [address] Jul, [place] [address] [id number] [id number] Jul, [facility] [address] [facility] [id number] [address] Jun, Opioid use disorder, mild, abuse F11.10 and BMI 50.0-59.9, adult Z68.43 [facility] [address]65100[place], [place] [address] 42[address] Jun, [facility] [id number] [place] [address] 768182- 7793 Jun, [facility] [id number] [place] [address] 59066- 3021 Jun, [facility] [id number] [place] [address] 735304- 7584 Jun, Opioid use disorder, mild, abuse F11.10 [facility] [id number] [place] [address] 79682- 9349 20 Jun, 2018 [facility] [id number] [place] [address] 105516- 7827 19 Jun, 2018 Opioid use disorder, mild, abuse F11.10 [facility] [id number] [place] [address] 371448- 4483 18 Jun, 2018 BMI 45.0-49.9, adult Z68.42 and Opioid use disorder, mild, abuse F11.10 [facility] [address] [id number] [id number] Jun, [facility] [address]65[address], [place] [address]- 6181 Jun, [facility] [address] [place] [address] 13128- 1061 Jun, [facility] [address] [id number] [id number] 05 Jun, 2018 Osteoarthritis of facet joint of lumbar spine M47.816 [facility] [address] [place] [address] 75607- 6063 May, [facility] [address] [id number] [id number] May, Essential hypertension I10 ; Type 2 diabetes mellitus without complication, without long-term current use of insulin E11.9 ; Osteoarthritis of facet joint of lumbar spine M47.816 ; Tobacco abuse Z72.0 ; Tobacco abuse counseling Z71.6 and BMI 45.0-49.9, adult Z68.42 [place] [address] [place] [place] [id number] [place] [address] 50179- 3619 15 Nov, 2017 Osteoarthritis of carpometacarpal joints of both thumbs, unspecified osteoarthritis type M18.0 [place] [address] [place] [id number] [place] [address] 01035- 9709 Oct, Primary osteoarthritis, right hand M19.041 [place] [address] 7[address]24- 4436 Oct, Sebaceous cyst L72.3 [place] [address] [place] [id number] [place] [address] 77907- 2559 Sep, Primary osteoarthritis, right hand M19.041 ; Type 2 diabetes mellitus without complication, without long-term current use of insulin E11.9 ; 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 ; Essential hypertension I10 ; Coronary artery disease involving chinik coronary artery of chinik heart without angina pectoris I25.10 ; BRIA (obstructive sleep apnea) G47.33 ; COPD, mild J44.9 ; Non-healing skin lesion of nose L98.9 ; BMI 50.0- 59.9, adult Z68.43 and Encounter for immunization Z23 [place] [address] [place] [place] [id number] [place] [address] 06374- 3384 Sep, Primary osteoarthritis, right hand M19.041 and 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 [place] [address] [place] [id number] [place] [address] 90896- 1114 Sep, Pain in right hand M79.641 and Pain of left hand M79.642 [place] [address] [place] [id number] [place] [address] 17674- 2414 Sep, Pain in right hand M79.641 and Pain of left hand M79.642 [place] [address] [place] [id number] [place] [address] 89527- 5914 Aug, [facility] [address] [facility] [id number], [place] [address]- 9466 Aug, [facility] [address] [facility] [id number] [address]- 4736 Aug, Type 2 diabetes mellitus without complication, without long- term current use of insulin E11.9 ; Essential hypertension I10 ; Coronary artery disease involving chinik coronary artery of chinik heart without angina pectoris I25.10 ; BRIA (obstructive sleep apnea) G47.33 ; Nocturnal hypoxemia G47.34 ; COPD, mild J44.9 ; Low back pain M54.5 and BMI 40.0-44.9, adult Z68.41 [place] [address] [facility] [id number], [place] [address]386 Jul, IMMUNIZATIONS No Known Immunizations SOCIAL HISTORY Never Assessed REASON FOR VISIT Induction Day 1 PLAN OF CARE Activity Details Follow Up tomorrow Reason:induction day 2 VITAL SIGNS MEDICATIONS Medication Instructions Dosage Frequency Start Date End Date Duration Status Suboxone 8-2 MG Sublingual Once. May repeat in an hour 0.5 film under the tongue and allow to dissolve Jun, 1 days Active RESULTS Name Result Date Reference Range URINE DRUG SCREEN (IN HOUSE) 2018-07-17 Lot # [id number] Exp date 06/2019 Control + COCAINE neg AMPH neg MTD neg THC neg OPIATE neg BENZO neg PCP neg BAR neg OXY neg MAMP neg BUP neg MDMA neg TCA n/a ETOH SALIVA 2018-07-17 Lot [id number] Exp. 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 was on hydrocodone and morphine and then methadone at pain managment at [place] and then used hydrocodone from pain management [...]
--- OUTSIDE RECORDS SUMMARY | 2018-10-29 05:08 | XMS REPORT ---
Author Author MARÍA ELENA SUNSHINE [facility] Address [address] [place] [address] Care Team Providers Care Marketing Program Coordinator Name Role Phone MARÍA ELENA SUNSHINE Unavailable PROBLEMS ALLERGIES ENCOUNTERS IMMUNIZATIONS No Known Immunizations SOCIAL HISTORY No smoking Hx information available REASON FOR VISIT PLAN OF CARE VITAL SIGNS MEDICATIONS RESULTS No Results PROCEDURES No Known procedures INSTRUCTIONS MEDICATIONS ADMINISTERED No Known Medications MEDICAL (GENERAL) HISTORY
--- OUTSIDE RECORDS SUMMARY | 2018-10-29 05:08 | XMS REPORT ---
Author Author MARÍA ELENA SUNSHINE Organization [facility] Address [address] [place] [address] Care Team Providers Care Burlap Man Name Role Phone MARÍA ELENA SUNSHINE Unavailable PROBLEMS Type Condition ICD9-CM Code SKM56-ZI Code Onset Dates Condition Status SNOMED Code Problem COPD, mild J44.9 Active 029006767 Problem BRIA (obstructive sleep apnea) G47.33 Active 21562880 Problem Coronary artery disease involving huslia coronary artery of huslia heart without angina pectoris I25.10 Active 7071389693315 Problem Opioid use disorder, mild, abuse F11.10 Active 2281608 Problem Osteoarthritis of facet joint of lumbar spine M47.816 Active 625257026 Problem Essential hypertension I10 Active 84814400 Problem Nocturnal hypoxemia G47.34 Active 151087396 Problem Tobacco abuse counseling Z71.6 Active 453171416 Problem Tobacco abuse Z72.0 Active 372701446 Problem Primary osteoarthritis, right hand M19.041 Active 8474293922084671 Problem Type 2 diabetes mellitus without complication, without long-term current use of insulin E11.9 Active 805934755 Problem Abnormal glucose R73.09 Active 824783440 Problem Low back pain M54.5 Active 436531438 Problem 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 Active 54134785 Problem Obstructive sleep apnea (adult) (pediatric) G47.33 Active 53692864 ALLERGIES No Information ENCOUNTERS Encounter Location Date Diagnosis [facility] [address] [facility] [id number], [place] [address] Jul, [facility] [address] [place] [address]53- 9306 Jun, Opioid use disorder, mild, abuse F11.10 and BMI 50.0-59.9, adult Z68.43 [facility] [address] [id number], [place] [address] Jun, [facility] [address], [place] [address] Jun, [facility] [id number] [place] [address] 37458- 3461 Jun, [facility] [address] [place] [address] 22407- 9089 Jun, Opioid use disorder, mild, abuse F11.10 [facility] [address] [place] [address] 76608- 0999 20 Jun, 2018 [facility] [address] [place] [address] 23019- 3395 19 Jun, 2018 Opioid use disorder, mild, abuse F11.10 [facility] [address] [place] [address] 90177- 4869 18 Jun, 2018 BMI 45.0-49.9, adult Z68.42 and Opioid use disorder, mild, abuse F11.10 [facility] [address] [id number] [id number] Jun, [facility] [address] [place] [address] 83532- 7131 Jun, [facility] [address], [place] [address] Jun, [facility] [address] [id number] [id number] Jun, Osteoarthritis of facet joint of lumbar spine M47.816 [facility] [address] [id number], [place] [address] May, [facility] [address] [id number] [id number] May, Essential hypertension I10 ; Type 2 diabetes mellitus without complication, without long-term current use of insulin E11.9 ; Osteoarthritis of facet joint of lumbar spine M47.816 ; Tobacco abuse Z72.0 ; Tobacco abuse counseling Z71.6 and BMI 45.0-49.9, adult Z68.42 [place] [id number] [place] [address] 13644- 5609 15 Nov, 2017 Osteoarthritis of carpometacarpal joints of both thumbs, unspecified osteoarthritis type M18.0 [place] [id number] [place] [address] 32050- 8001 Oct, Primary osteoarthritis, right hand M19.041 [place] [address] [address]- 12[address] Oct, Sebaceous cyst L72.[address] [address]- [address] Sep, Primary osteoarthritis, right hand M19.041 ; Type 2 diabetes mellitus without complication, without long-term current use of insulin E11.9 ; 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 ; Essential hypertension I10 ; Coronary artery disease involving huslia coronary artery of huslia heart without angina pectoris I25.10 ; BRIA (obstructive sleep apnea) G47.33 ; COPD, mild J44.9 ; Non-healing skin lesion of nose L98.9 ; BMI 50.0- 59.9, adult Z68.43 and Encounter for immunization Z23 [place] [id number] [place] [address] 73270- 2408 11 Sep, 2017 Primary osteoarthritis, right hand M19.041 and 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 [place] [id number] [place] [address] 24316- 3703 Sep, Pain in right hand M79.641 and Pain of left hand M79.642 [place] [address] [place] [address] 49328- 4880 Sep, Pain in right hand M79.641 and Pain of left hand M79.642 [place] [id number] [place] [address] 82767- 9124 Aug, [place] [address] [address]- [address]33 Aug, [facility] [address] [facility] [id number] [place] [address] Aug, Type 2 diabetes mellitus without complication, without long- term current use of insulin E11.9 ; Essential hypertension I10 ; Coronary artery disease involving huslia coronary artery of huslia heart without angina pectoris I25.10 ; BRIA (obstructive sleep apnea) G47.33 ; Nocturnal hypoxemia G47.34 ; COPD, mild J44.9 ; Low back pain M54.5 and BMI 40.0-44.9, adult Z68.41 [facility] [address] [facility] [id number] [place] [address] Jul, IMMUNIZATIONS No Known Immunizations SOCIAL HISTORY Never Assessed REASON FOR VISIT Formal Assessment PLAN OF CARE VITAL SIGNS MEDICATIONS Unknown Medications RESULTS No Results PROCEDURES Procedure Date Ordered Result Body Site Alcohol and/or drug services Jul 19, 2018 INSTRUCTIONS MEDICATIONS ADMINISTERED No Known Medications MEDICAL (GENERAL) HISTORY Type Description Date Medical History type II diabetes- 2006 Medical History hypertension- 20 years 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 was on hydrocodone and morphine and then methadone at pain managment at [place] and then used hydrocodone from pain [...]
--- OUTSIDE RECORDS SUMMARY | 2018-10-29 05:08 | XMS REPORT ---
Author Author ALLYSSA ARREOLA [facility] Address [address] [place] [address] Care Team Providers Care Brick Yard Hand Name Role Phone ALLYSSA ARREOLA Unavailable PROBLEMS Type Condition ICD9-CM Code JIZ71-LM Code Onset Dates Condition Status SNOMED Code Problem COPD, mild J44.9 Active 676755855 Problem BRIA (obstructive sleep apnea) G47.33 Active 27475112 Problem Coronary artery disease involving [place] coronary artery of [place] heart without angina pectoris I25.10 Active 6815614263961 Problem Opioid use disorder, mild, abuse F11.10 Active 1577135 Problem Osteoarthritis of facet joint of lumbar spine M47.816 Active 045108964 Problem Essential hypertension I10 Active 90280585 Problem Nocturnal hypoxemia G47.34 Active 668828296 Problem Tobacco abuse counseling Z71.6 Active 689269020 Problem Tobacco abuse Z72.0 Active 901572781 Problem Primary osteoarthritis, right hand M19.041 Active 1566883485024927 Problem Type 2 diabetes mellitus without complication, without long-term current use of insulin E11.9 Active 947468321 Problem Abnormal glucose R73.09 Active 182129900 Problem Low back pain M54.5 Active 287477581 Problem 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 Active 35921192 Problem Obstructive sleep apnea (adult) (pediatric) G47.33 Active 11056615 ALLERGIES No Information ENCOUNTERS Encounter Location Date Diagnosis [facility] [address] [facility] [id number], [place] [address] Jul, [facility] [address] [facility] [address] [id number] [place] [id number] Jul, [facility] [address] [facility] [id number], [place] [address] Jun, Opioid use disorder, mild, abuse F11.10 and BMI 50.0-59.9, adult Z68.43 [facility] [address], [place] [address] Jun, [facility] [id number] [place] [address] 655088- 3283 Jun, [facility] [id number] [place] [address] 94006- 3221 Jun, [facility] [id number] [place] [address] 964564- 5285 Jun, Opioid use disorder, mild, abuse F11.10 [facility] [id number] [place] [address] 880153- 2222 20 Jun, 2018 [facility] [id number] [place] [address] 36990- 0437 19 Jun, 2018 Opioid use disorder, mild, abuse F11.10 [facility] [id number] [place] [address] 48349- 5379 18 Jun, 2018 BMI 45.0-49.9, adult Z68.42 and Opioid use disorder, mild, abuse F11.10 [facility] [address] [id number] [place] [address] Jun, [facility] [address] [place] [address] 39812- 6164 Jun, [facility] [address] [place] [address] 47090- 2392 Jun, [facility] [address] [id number] [place] [id number] 05 Jun, 2018 Osteoarthritis of facet joint of lumbar spine M47.816 [facility] [id number] [place] [address] 19018- 6434 May, [facility] [address] [id number] [place] [id number] May, Essential hypertension I10 ; Type 2 diabetes mellitus without complication, without long-term current use of insulin E11.9 ; Osteoarthritis of facet joint of lumbar spine M47.816 ; Tobacco abuse Z72.0 ; Tobacco abuse counseling Z71.6 and BMI 45.0-49.9, adult Z68.42 [place] [id number] [place] [address] 35839- 4328 15 Nov, 2017 Osteoarthritis of carpometacarpal joints of both thumbs, unspecified osteoarthritis type M18.0 [place] [id number] [place] [address] 44794- 3981 Oct, Primary osteoarthritis, right hand M19.041 [place] [id number] [place] [address] 32547- 5099 Oct, Sebaceous cyst L72.3 [place] [id number] [place] [address] 58396- 8035 Sep, Primary osteoarthritis, right hand M19.041 ; Type 2 diabetes mellitus without complication, without long-term current use of insulin E11.9 ; 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 ; Essential hypertension I10 ; Coronary artery disease involving [place] coronary artery of [place] heart without angina pectoris I25.10 ; BRIA (obstructive sleep apnea) G47.33 ; COPD, mild J44.9 ; Non-healing skin lesion of nose L98.9 ; BMI 50.0- 59.9, adult Z68.43 and Encounter for immunization Z23 [place] [id number] [place] [address] 84450- 7972 Sep, Primary osteoarthritis, right hand M19.041 and 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 [place] [id number] [place] [address] 52185- 3037 Sep, Pain in right hand M79.641 and Pain of left hand M79.642 [place] [id number] [place] [address] 37480- 3733 05 Sep, 2017 Pain in right hand M79.641 and Pain of left hand M79.642 [place] [address] 68085- 0487 Aug, [facility] [address] [facility] [id number] [place] [address] Aug, [facility] [address] [facility] [id number] [place] [address] 9[address] Aug, Type 2 diabetes mellitus without complication, without long- term current use of insulin E11.9 ; Essential hypertension I10 ; Coronary artery disease involving [place] coronary artery of [place] heart without angina pectoris I25.10 ; BRIA (obstructive sleep apnea) G47.33 ; Nocturnal hypoxemia G47.34 ; COPD, mild J44.9 ; Low back pain M54.5 and BMI 40.0-44.9, adult Z68.41 [facility] [address] [facility] [id number] [address] Jul, IMMUNIZATIONS No Known Immunizations SOCIAL HISTORY Never Assessed REASON FOR VISIT PLAN OF CARE VITAL SIGNS MEDICATIONS Unknown Medications RESULTS No Results PROCEDURES No Known procedures INSTRUCTIONS MEDICATIONS ADMINISTERED No Known Medications MEDICAL (GENERAL) HISTORY Type Description Date Medical History type II diabetes- 2006 Medical History hypertension- 20 years 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 was on hydrocodone and morphine and then methadone at pain managment at [place] and then used hydrocodone from pain management [...]
--- OUTSIDE RECORDS SUMMARY | 2018-10-29 05:08 | XMS REPORT ---
Author Author MARÍA ELENA SUNSHINE Organization [facility] Address [address] [place] [address] Care Team Providers Care Leather Cutter Name Role Phone MARÍA ELENA SUNSHINE Unavailable PROBLEMS Type Condition ICD9-CM Code KSF32-QL Code Onset Dates Condition Status SNOMED Code Problem COPD, mild J44.9 Active 871621956 Problem BRIA (obstructive sleep apnea) G47.33 Active 66020844 Problem Coronary artery disease involving tetlin coronary artery of tetlin heart without angina pectoris I25.10 Active 6729374975054 Problem Opioid use disorder, mild, abuse F11.10 Active 2909306 Problem Osteoarthritis of facet joint of lumbar spine M47.816 Active 899261871 Problem Essential hypertension I10 Active 59263415 Problem Nocturnal hypoxemia G47.34 Active 776931243 Problem Tobacco abuse counseling Z71.6 Active 618732376 Problem Tobacco abuse Z72.0 Active 342504174 Problem Primary osteoarthritis, right hand M19.041 Active 0116900214351150 Problem Type 2 diabetes mellitus without complication, without long-term current use of insulin E11.9 Active 452848713 Problem Abnormal glucose R73.09 Active 868279002 Problem Low back pain M54.5 Active 623748712 Problem 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 Active 03588833 Problem Obstructive sleep apnea (adult) (pediatric) G47.33 Active 79471659 ALLERGIES No Information ENCOUNTERS Encounter Location Date Diagnosis [facility] [address] [facility] [id number] [place] [address] Jul, [facility] [address] [id number] [id number] Jul, [facility] [address] [facility] [id number] [place] [address] Jun, Opioid use disorder, mild, abuse F11.10 and BMI 50.0-59.9, adult Z68.43 [facility] [address]65[address] [address]- 5645 Jun, [facility] [id number] [place] [address] 216739- 5657 Jun, [facility] [id number] [place] [address] 32630- 3380 Jun, [facility] [id number] [place] [address] 529004- 5534 Jun, Opioid use disorder, mild, abuse F11.10 [facility] [id number] [place] [address] 61746- 4964 20 Jun, 2018 [facility] [id number] [place] [address] 431270- 6107 19 Jun, 2018 Opioid use disorder, mild, abuse F11.10 [facility] [id number] [place] [address] 309789- 4823 18 Jun, 2018 BMI 45.0-49.9, adult Z68.42 and Opioid use disorder, mild, abuse F11.10 [facility] [address] [id number] [id number] Jun, [facility] [address]65[address] [address]- 99[address] Jun, [facility] [address] [place] [address] 58295- 3653 Jun, [facility] [address] [id number] [id number] 05 Jun, 2018 Osteoarthritis of facet joint of lumbar spine M47.816 [facility] [address] [place] [address] 40936- 1722 May, [facility] [address] [id number] [place] [id number] May, Essential hypertension I10 ; Type 2 diabetes mellitus without complication, without long-term current use of insulin E11.9 ; Osteoarthritis of facet joint of lumbar spine M47.816 ; Tobacco abuse Z72.0 ; Tobacco abuse counseling Z71.6 and BMI 45.0-49.9, adult Z68.42 [place] [id number] [place] [address] 23911- 4941 15 Nov, 2017 Osteoarthritis of carpometacarpal joints of both thumbs, unspecified osteoarthritis type M18.0 [place] [id number] [place] [address] 23505- 3244 Oct, Primary osteoarthritis, right hand M19.041 [place] [address] [address]- 8929 Oct, Sebaceous cyst L72.3 [place] [id number] [place] [address] 74955- 7911 Sep, Primary osteoarthritis, right hand M19.041 ; Type 2 diabetes mellitus without complication, without long-term current use of insulin E11.9 ; 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 ; Essential hypertension I10 ; Coronary artery disease involving tet[place] coronary artery of tetlin heart without angina pectoris I25.10 ; BRIA (obstructive sleep apnea) G47.33 ; COPD, mild J44.9 ; Non-healing skin lesion of nose L98.9 ; BMI 50.0- 59.9, adult Z68.43 and Encounter for immunization Z23 [place] [id number] [place] [address] 20159- 1433 Sep, Primary osteoarthritis, right hand M19.041 and 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 [place] [id number] [place] [address] 75994- 4343 Sep, Pain in right hand M79.641 and Pain of left hand M79.642 [place] [id number] [place] [address] 53725- 3497 Sep, Pain in right hand M79.641 and Pain of left hand M79.642 [place] [id number] [place] [address] 76707- 7845 Aug, [facility] [address] [facility] [id number] [place] [address]- 2546 Aug, [facility] [address] [facility] [id number] [place] [address] 2546 Aug, Type 2 diabetes mellitus without complication, without long- term current use of insulin E11.9 ; Essential hypertension I10 ; Coronary artery disease involving [place] coronary artery of tetlin heart without angina pectoris I25.10 ; BRIA (obstructive sleep apnea) G47.33 ; Nocturnal hypoxemia G47.34 ; COPD, mild J44.9 ; Low back pain M54.5 and BMI 40.0-44.9, adult Z68.41 [place] [address] 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 was on hydrocodone and morphine and then methadone at pain managment at [place] and then used hydrocodone from pain management [...]
--- OUTSIDE RECORDS SUMMARY | 2018-10-29 05:09 | XMS REPORT ---
Author Author AHMET ENRIQUE [facility] Address [address] [place] [address] Care Team Providers Care Inspector Circuitry Negative Name Role Phone AHMET ENRIQUE Unavailable PROBLEMS Type Condition ICD9-CM Code SXY66-TA Code Onset Dates Condition Status SNOMED Code Problem COPD, mild J44.9 Active 142459080 Problem BRIA (obstructive sleep apnea) G47.33 Active 61975840 Problem Coronary artery disease involving squaxin coronary artery of squaxin heart without angina pectoris I25.10 Active 4210569799601 Problem Opioid use disorder, mild, abuse F11.10 Active 6930628 Problem Osteoarthritis of facet joint of lumbar spine M47.816 Active 100159427 Problem Essential hypertension I10 Active 64538028 Problem Nocturnal hypoxemia G47.34 Active 793994289 Problem Tobacco abuse counseling Z71.6 Active 384746983 Problem Tobacco abuse Z72.0 Active 013756400 Problem Primary osteoarthritis, right hand M19.041 Active 8307568585021487 Problem Type 2 diabetes mellitus without complication, without long-term current use of insulin E11.9 Active 634682489 Problem Abnormal glucose R73.09 Active 255153980 Problem Low back pain M54.5 Active 102968276 Problem 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 Active 67890645 Problem Obstructive sleep apnea (adult) (pediatric) G47.33 Active 36425639 ALLERGIES No Information ENCOUNTERS Encounter Location Date Diagnosis [facility], [place] [address] [facility] [id number] [address] Jul, [facility] [id number] [id number] [id number] Jul, [facility], [place] [address] [facility] [id number][place] [address] Jun, Opioid use disorder, mild, abuse F11.10 and BMI 50.0-59.9, adult Z68.43 [facility], [place] [address] [place] [address]447- 2855 Jun, [facility], [place] [address] [place] [id number] [place] [address] 817081- 5307 Jun, [facility], [place] [address] [place] [address] [id number] [place] [address] 32431- 5289 Jun, [facility], [place] [id number] [place] [address] 400294- 6053 Jun, Opioid use disorder, mild, abuse F11.10 [facility], [place] [address] [place] [address] [id number] [place] [address] 504015- 8667 20 Jun, 2018 [facility], [place] [id number] [place] [address] 65652- 2704 19 Jun, 2018 Opioid use disorder, mild, abuse F11.10 [facility], [place] [address] [place] [address] [id number] [place] [address] 03332- 2278 18 Jun, 2018 BMI 45.0-49.9, adult Z68.42 and Opioid use disorder, mild, abuse F11.10 [facility] [address] [id number][place] [id number] Jun, [facility], [place] [address] [place] [address] 60506- 3671 Jun, [facility], [place] [address] [place] [address] 60185- 9614 Jun, [facility] [address] [id number] [id number] 05 Jun, 2018 Osteoarthritis of facet joint of lumbar spine M47.816 [facility], [place] [address] [place] [address] 01237- 8099 May, [facility] [address] [id number][place] [id number] May, Essential hypertension I10 ; Type 2 diabetes mellitus without complication, without long-term current use of insulin E11.9 ; Osteoarthritis of facet joint of lumbar spine M47.816 ; Tobacco abuse Z72.0 ; Tobacco abuse counseling Z71.6 and BMI 45.0-49.9, adult Z68.42 [place] [address] [place] [id number] [place] [address] 76862- 5300 15 Nov, 2017 Osteoarthritis of carpometacarpal joints of both thumbs, unspecified osteoarthritis type M18.0 [place] [address] [place] [id number] [place] [address] 92156- 4461 Oct, Primary osteoarthritis, right hand M19.041 [place] [address] [address]- [address] Oct, Sebaceous cyst L72.3 [place] [address] [address]98- 1266 Sep, Primary osteoarthritis, right hand M19.041 ; Type 2 diabetes mellitus without complication, without long-term current use of insulin E11.9 ; 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 ; Essential hypertension I10 ; Coronary artery disease involving squaxin coronary artery of squaxin heart without angina pectoris I25.10 ; BRIA (obstructive sleep apnea) G47.33 ; COPD, mild J44.9 ; Non-healing skin lesion of nose L98.9 ; BMI 50.0- 59.9, adult Z68.43 and Encounter for immunization Z23 [place] [address] [place] [id number] [place] [address] 73540- 7934 Sep, Primary osteoarthritis, right hand M19.041 and 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 [place] [address] [place] [address] [id number] [place] [address] 60995- 1015 Sep, Pain in right hand M79.641 and Pain of left hand M79.642 [place] [address] [place] [id number] [place] [address] 95406- 0661 05 Sep, 2017 Pain in right hand M79.641 and Pain of left hand M79.642 [place] [address] [address]- 2546 Aug, [facility], [place] [address] [facility] [id number], [place] [address] Aug, [facility], [place] [address] [facility] [id number], [place] [address] Aug, Type 2 diabetes mellitus without complication, without long- term current use of insulin E11.9 ; Essential hypertension I10 ; Coronary artery disease involving squaxin coronary artery of squaxin heart without angina pectoris I25.10 ; BRIA (obstructive sleep apnea) G47.33 ; Nocturnal hypoxemia G47.34 ; COPD, mild J44.9 ; Low back pain M54.5 and BMI 40.0-44.9, adult Z68.41 [place] [address] 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 was on hydrocodone and morphine and then methadone at pain managment at [place] and then used hydrocodone from pain management [...]
--- OUTSIDE RECORDS SUMMARY | 2018-10-29 05:09 | XMS REPORT ---
Author Author ERIK BLANCO [facility] Address [address] [place] [address] Care Team Providers Care Engraver Letter Name Role Phone BELLA ERIK Unavailable PROBLEMS Type Condition ICD9-CM Code CPL54-IP Code Onset Dates Condition Status SNOMED Code Problem Primary osteoarthritis, right hand M19.041 Active 8343437525940369 Problem Obstructive sleep apnea (adult) (pediatric) G47.33 Active 82716673 Problem Type 2 diabetes mellitus without complication, without long-term current use of insulin E11.9 Active 311663458 Problem Abnormal glucose R73.09 Active 727617767 Problem 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 Active 84003812 Problem Low back pain M54.5 Active 555288780 Problem Essential hypertension I10 Active 89106773 Problem Coronary artery disease involving kake coronary artery of kake heart without angina pectoris I25.10 Active 7881439217479 Problem COPD, mild J44.9 Active 322761441 Problem Nocturnal hypoxemia G47.34 Active 457232065 Problem BRIA (obstructive sleep apnea) G47.33 Active [id number] ALLERGIES No Information ENCOUNTERS Encounter Location Date Diagnosis [place] [address] [place] [address] 33372- [address] Nov, Osteoarthritis of carpometacarpal joints of both thumbs, unspecified osteoarthritis type M18.0 [place] [address] [place] [address] 21612- 0084 Oct, Primary osteoarthritis, right hand M19.041 [place] [address] [place] [id number] [place] [address] 61211- 0615 Oct, Sebaceous cyst L72.3 [place] [address] [place] [id number] [place] [address] 22438- 8295 Sep, Primary osteoarthritis, right hand M19.041 ; Type 2 diabetes mellitus without complication, without long-term current use of insulin E11.9 ; 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 ; Essential hypertension I10 ; Coronary artery disease involving kake coronary artery of kake heart without angina pectoris I25.10 ; BRIA (obstructive sleep apnea) G47.33 ; COPD, mild J44.9 ; Non-healing skin lesion of nose L98.9 ; BMI 50.0- 59.9, adult Z68.43 and Encounter for immunization Z23 [place] [address] [address]- [address]143 Sep, Primary osteoarthritis, right hand M19.041 and 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 [place] [address] [address]53- [address]10 Sep, Pain in right hand M79.641 and Pain of left hand M79.642 [place] [address] [address]24- [address]40 Sep, Pain in right hand M79.641 and Pain of left hand M79.642 [place] [address] [id number] [place] [address] 81250- 7486 Aug, [place] [address] [place] [id number] [place] [address] 31750- 4695 Aug, [place] [address] [place] [id number] [place] [address] 07721- 9638 Aug, Type 2 diabetes mellitus without complication, without long- term current use of insulin E11.9 ; Essential hypertension I10 ; Coronary artery disease involving kake coronary artery of kake heart without angina pectoris I25.10 ; BRIA (obstructive sleep apnea) G47.33 ; Nocturnal hypoxemia G47.34 ; COPD, mild J44.9 ; Low back pain M54.5 and BMI 40.0-44.9, adult Z68.41 [place] [address] [place] [id number] [place] [address] 13393- 8430 Jul, IMMUNIZATIONS No Known Immunizations SOCIAL HISTORY Never Assessed REASON FOR VISIT bilateral hand osteoarthritis-xrays done. Consult Erik Blanco;Ava RT(R) PLAN OF CARE Activity Details Follow Up 4 Weeks Reason: VITAL SIGNS Height 63 in 2017-12-13 Blood pressure systolic 154 mmHg 2017-12-13 Blood pressure diastolic 114 mmHg 2017-12-13 MEDICATIONS Unknown Medications RESULTS No Results PROCEDURES Procedure Date Ordered Result Body Site JOINT INJECTION-SMALL JOINT 2017-12-13 N/A DRAIN/INJECT, JOINT/BURSA Dec 13, 2017 DEPO MEDROL 40 MG/ML Dec 13, 2017 INSTRUCTIONS MEDICATIONS ADMINISTERED No Known Medications MEDICAL (GENERAL) HISTORY Type Description Date Medical History type II diabetes- 2006 Medical History hypertension- 20 years 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 was on hydrocodone and morphine and then methadone at pain managment at [place] and then used hydrocodone from pain management [...]
--- OUTSIDE RECORDS SUMMARY | 2018-10-29 05:09 | XMS REPORT ---
Author Author [facility]REOLA [facility] Address [address] [place] [address] Care Team Providers Care Software Systems Architect Name Role Phone ALLYSSA ARREOLA Unavailable PROBLEMS Type Condition ICD9-CM Code XAO60-WK Code Onset Dates Condition Status SNOMED Code Problem COPD, mild J44.9 Active 578503699 Problem BRIA (obstructive sleep apnea) G47.33 Active 91040198 Problem Coronary artery disease involving hughes coronary artery of hughes heart without angina pectoris I25.10 Active 0644873580049 Problem Opioid use disorder, mild, abuse F11.10 Active 6986528 Problem Osteoarthritis of facet joint of lumbar spine M47.816 Active 496943358 Problem Essential hypertension I10 Active 53816445 Problem Nocturnal hypoxemia G47.34 Active 393264116 Problem Tobacco abuse counseling Z71.6 Active 069309861 Problem Tobacco abuse Z72.0 Active 738190358 Problem Primary osteoarthritis, right hand M19.041 Active 4944859637373113 Problem Type 2 diabetes mellitus without complication, without long-term current use of insulin E11.9 Active 345304783 Problem Abnormal glucose R73.09 Active 620635755 Problem Low back pain M54.5 Active 868631863 Problem 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 Active 01581329 Problem Obstructive sleep apnea (adult) (pediatric) G47.33 Active 43728282 ALLERGIES Substance Reaction Event Type Date Status Lyrica irritability Drug Allergy May, Active Flexeril nausea Drug Allergy May, Active ENCOUNTERS Encounter Location Date Diagnosis [facility] [address] [address] [id number][place] [id number] Jul, [facility] [address] [facility] [id number], [place] [address] Jun, [facility] [address] [facility] [id number], [place] [address] Jun, [facility] [address] [address] Jun, [facility] [address] [place] [id number] [place] [address] 65882- 3509 Jun, [facility] [address] [place] [id number] [place] [address] 82243- 1376 Jun, [facility] [address] [place] [id number] [place] [address] 204455- 9634 Jun, Opioid use disorder, mild, abuse F11.10 [facility] [address] [place] [id number] [place] [address] 391645- 3664 20 Jun, 2018 [facility] [address] [place] [id number] [place] [address] 11242- 6088 19 Jun, 2018 Opioid use disorder, mild, abuse F11.10 [facility] [address] [place] [id number] [place] [address] 50147- 5642 18 Jun, 2018 BMI 45.0-49.9, adult Z68.42 and Opioid use disorder, mild, abuse F11.10 [facility] [address] [id number] [id number] Jun, [facility] [address] [place] [address] 40776- 0978 Jun, [facility] [address] [place] [address] 83748- 4927 Jun, [facility] [address] [id number][place] [id number] 05 Jun, 2018 Osteoarthritis of facet joint of lumbar spine M47.816 [facility] [address] [place] [id number] [place] [address] 52485- 8552 May, [facility] [address] [id number][place] [id number] May, Essential hypertension I10 ; Type 2 diabetes mellitus without complication, without long-term current use of insulin E11.9 ; Osteoarthritis of facet joint of lumbar spine M47.816 ; Tobacco abuse Z72.0 ; Tobacco abuse counseling Z71.6 and BMI 45.0-49.9, adult Z68.42 [place] [address] [place] [id number] [place] [address] 78473- 5014 15 Nov, 2017 Osteoarthritis of carpometacarpal joints of both thumbs, unspecified osteoarthritis type M18.0 [place] [address] [place] [id number] [place] [address] 49308- 2162 Oct, Primary osteoarthritis, right hand M19.041 [place] [address] [place] [id number] [place] [address] 12894- 5254 Oct, Sebaceous cyst L72.3 [place] [address] [place] [address] [place] [address] 39818- 7646 Sep, Primary osteoarthritis, right hand M19.041 ; Type 2 diabetes mellitus without complication, without long-term current use of insulin E11.9 ; 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 ; Essential hypertension I10 ; Coronary artery disease involving hughes coronary artery of hughes heart without angina pectoris I25.10 ; BRIA (obstructive sleep apnea) G47.33 ; COPD, mild J44.9 ; Non-healing skin lesion of nose L98.9 ; BMI 50.0- 59.9, adult Z68.43 and Encounter for immunization Z23 [place] [address] [place] [id number] [place] [address] 64475- 2472 Sep, Primary osteoarthritis, right hand M19.041 and 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 [place] [address] [place] [id number] [place] [address] 60794- 7101 Sep, Pain in right hand M79.641 and Pain of left hand M79.642 [place] [address] [place] [id number] [place] [address] 00900- 7600 05 Sep, 2017 Pain in right hand M79.641 and Pain of left hand M79.642 [place] [address] [address]- 1904 Aug, [facility] [address] [facility] [id number] [place] [address]- 86[address] Aug, [facility] [address] [facility] [id number], [place] [address]- 4716 Aug, Type 2 diabetes mellitus without complication, without long- term current use of insulin E11.9 ; Essential hypertension I10 ; Coronary artery disease involving hughes coronary artery of hughes heart without angina pectoris I25.10 ; BRIA (obstructive sleep apnea) G47.33 ; Nocturnal hypoxemia G47.34 ; COPD, mild J44.9 ; Low back pain M54.5 and BMI 40.0-44.9, adult Z68.41 [place] [address] [facility] [id number], [place] [address] Jul, IMMUNIZATIONS No Known Immunizations SOCIAL HISTORY Never Assessed REASON FOR VISIT New provider visit. Patient feels previous provider was not helping with his medical problems in a timely manner. bferrisma PLAN OF CARE Activity Details Follow Up 4 Weeks Reason:HTN/Pain VITAL SIGNS Height 63 in 2018-06-18 Weight 280.1 lbs 2018-06-18 Temperature 98.9 degrees Fahrenheit 2018-06-18 Heart Rate 90 bpm 2018-06-18 Respiratory Rate 20 2018-06-18 BMI 49.61 kg/m2 2018-06-18 Blood pressure systolic 137 mmHg 2018-06-18 Blood pressure diastolic 93 mmHg 2018-06-18 MEDICATIONS Medication Instructions Dosage Frequency Start Date End Date Duration Status Gabapentin 400 mg Orally daily x 3 days then am and pm x 4 d then tid 1 capsule May, 30 day(s) Active Celebrex 200 mg Orally Once a day 1 capsule with food for pain as needed 24h May, Aug, 90 days Active Lisinopril 10 mg Orally Once a day 1 tablet 24h 90 days Active Atenolol 50 MG Orally Once a day 1 tablet 24h 90 days Active Ozempic 0.25 or 0.5 MG/DOSE Apr, Active MetFORMIN HCl ER 500 mg Orally Once a day 1 tablet with evening meal 24h May, 90 days Active Zanaflex 4 MG Orally 2 times a day 1 capsule as needed for muscle pain 12h May, Aug, 30 days Active Incruse Ellipta 62.5 MCG/INH Inhalation Once a day 1 puff 24h Aug, Active Aspir-81 81 MG Orally Once a day 1 tablet 24h May, May, 90 days Active Hydrocodone-Acetaminophen 7.5-325 MG Orally 2 times a day with food 1 tablet as needed May, Active RESULTS No Results PROCEDURES Procedure Date Ordered Result Body Site ANTINUCLEAR ANTIBODIES Jun 18, 2018 RHEUMATOID FACTOR, QUANT Jun 18, 2018 C-REACTIVE PROTEIN Jun 18, 2018 GLYCATED HEMOGLOBIN TEST Jun 18, 2018 MICROALBUMIN, SEMIQUANT Jun 18, 2018 MICROALBUMIN, QUANTITATIVE Jun 18, 2018 ASSAY OF URINE CREATININE Jun 18, 2018 RBC SED RATE, AUTOMATED Jun 18, 2018 COMPREHEN METABOLIC PANEL Jun 18, 2018 ROUTINE VENIPUNCTURE 2018-06-18 N/A COMPLETE CBC W/AUTO DIFF WBC Jun 18, 2018 ASSAY OF VITAMIN D Jun 18, 2018 DRUG TEST PRSMV DIR OPT OBS Jun 18, 2018 INSTRUCTIONS MEDICATIONS ADMINISTERED No Known Medications MEDICAL (GENERAL) HISTORY Type Description Date Medical History type II diabetes- 2006 Medical History hypertension- 20 years 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 was on hydrocodone and morphine and then methadone at pain managment at [place] and then used hydrocodone from pain management [...]
--- OUTSIDE RECORDS SUMMARY | 2018-10-29 05:09 | XMS REPORT ---
Author Author MARÍA ELENA SUNSHINE [facility] Address [address] [place] [address] Care Team Providers Care Subassembly Assembler Name Role Phone MARÍA ELENA SUNSHINE Unavailable PROBLEMS Type Condition ICD9-CM Code [id number] Code Onset Dates Condition Status SNOMED Code Problem COPD, mild J44.9 Active 016533672 Problem BRIA (obstructive sleep apnea) G47.33 Active 97653555 Problem Coronary artery disease involving kaw coronary artery of kaw heart without angina pectoris I25.10 Active 1226390260098 Problem Opioid use disorder, mild, abuse F11.10 Active 4031081 Problem Osteoarthritis of facet joint of lumbar spine M47.816 Active 339353831 Problem Essential hypertension I10 Active 96689150 Problem Nocturnal hypoxemia G47.34 Active 850407582 Problem Tobacco abuse counseling Z71.6 Active 087411979 Problem Tobacco abuse Z72.0 Active 736880889 Problem Primary osteoarthritis, right hand M19.041 Active 6143933578341987 Problem Type 2 diabetes mellitus without complication, without long-term current use of insulin E11.9 Active 071307100 Problem Abnormal glucose R73.09 Active 102383994 Problem Low back pain M54.5 Active 111896298 Problem 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 Active 78607016 Problem Obstructive sleep apnea (adult) (pediatric) G47.33 Active 03485658 ALLERGIES No Information ENCOUNTERS Encounter Location Date Diagnosis [facility] [address] [facility] [id number] [id number] Jul, [facility] [address] [facility] [id number], [place] [address] Jun, [facility] [address] [facility] [id number], [place] [address] Jun, [facility] [address] [facility] [id number], [place] [address] Jun, [facility] [address], [place] [address] Jun, [facility] [id number] [place] [address] Jun, [facility] [id number] [place] [address] Jun, Opioid use disorder, mild, abuse F11.10 [facility] [address] [place] [address]- [address] 20 Jun, 2018 [facility] [id number] [place] [address] 140885- [address] 19 Jun, 2018 Opioid use disorder, mild, abuse F11.10 [facility] [id number] [place] [address]- [address] 18 Jun, 2018 BMI 45.0-49.9, adult Z68.42 and Opioid use disorder, mild, abuse F11.10 [facility] [address] [id number] [id number] Jun, [facility] [id number] [place] [address] Jun, [facility] [address], [place] [address] Jun, [facility] [address] [id number] [id number] 05 Jun, 2018 Osteoarthritis of facet joint of lumbar spine M47.816 [facility] [address] [id number], [place] [address] May, [facility] [address] [id number] [id number] May, Essential hypertension I10 ; Type 2 diabetes mellitus without complication, without long-term current use of insulin E11.9 ; Osteoarthritis of facet joint of lumbar spine M47.816 ; Tobacco abuse Z72.0 ; Tobacco abuse counseling Z71.6 and BMI 45.0-49.9, adult Z68.42 [place] [address] [address] 15 Nov, 2017 Osteoarthritis of carpometacarpal joints of both thumbs, unspecified osteoarthritis type M18.0 [place] [address] [address] Oct, Primary osteoarthritis, right hand M19.041 [place] [address] [address] Oct, Sebaceous cyst L72.3 [place] [address] [address] Sep, Primary osteoarthritis, right hand M19.041 ; Type 2 diabetes mellitus without complication, without long-term current use of insulin E11.9 ; 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 ; Essential hypertension I10 ; Coronary artery disease involving kaw coronary artery of kaw heart without angina pectoris I25.10 ; BRIA (obstructive sleep apnea) G47.33 ; COPD, mild J44.9 ; Non-healing skin lesion of nose L98.9 ; BMI 50.0- 59.9, adult Z68.43 and Encounter for immunization Z23 [place] [address] [address] 11 Sep, 2017 Primary osteoarthritis, right hand M19.041 and 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 [place] [address] [address] Sep, Pain in right hand M79.641 and Pain of left hand M79.642 [place] [address] [address] Sep, Pain in right hand M79.641 and Pain of left hand M79.642 [place] [address] [address] Aug, [place] [address] [address] Aug, [facility] [address] [facility] [id number] [place] [address] Aug, Type 2 diabetes mellitus without complication, without long- term current use of insulin E11.9 ; Essential hypertension I10 ; Coronary artery disease involving kaw coronary artery of kaw heart without angina pectoris I25.10 ; BRIA (obstructive sleep apnea) G47.33 ; Nocturnal hypoxemia G47.34 ; COPD, mild J44.9 ; Low back pain M54.5 and BMI 40.0-44.9, adult Z68.41 [facility] [address] 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 was on hydrocodone and morphine and then methadone at pain managment at [place] and then used hydrocodone from pain management [...]
--- OUTSIDE RECORDS SUMMARY | 2018-10-29 05:09 | XMS REPORT ---
Author Author ALLYSSA ARREOLA [facility] Address [address] [place] [address] Care Team Providers Care Sugar Coating Hand Name Role Phone ALLYSSA ARREOLA Unavailable PROBLEMS Type Condition ICD9-CM Code RBZ95-PW Code Onset Dates Condition Status SNOMED Code Problem COPD, mild J44.9 Active 048147407 Problem BRIA (obstructive sleep apnea) G47.33 Active 72041914 Problem Coronary artery disease involving [place] coronary artery of [place] heart without angina pectoris I25.10 Active 8929008250394 Problem Opioid use disorder, mild, abuse F11.10 Active 2324046 Problem Osteoarthritis of facet joint of lumbar spine M47.816 Active 889071749 Problem Essential hypertension I10 Active 77924405 Problem Nocturnal hypoxemia G47.34 Active 085442739 Problem Tobacco abuse counseling Z71.6 Active 633663420 Problem Tobacco abuse Z72.0 Active 202100688 Problem Primary osteoarthritis, right hand M19.041 Active 4825372225612151 Problem Type 2 diabetes mellitus without complication, without long-term current use of insulin E11.9 Active 114300126 Problem Abnormal glucose R73.09 Active 254197723 Problem Low back pain M54.5 Active 774803747 Problem 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 Active 89978013 Problem Obstructive sleep apnea (adult) (pediatric) G47.33 Active 65215801 ALLERGIES No Information ENCOUNTERS Encounter Location Date Diagnosis [facility] [address] [facility] [id number], [place] [address] Jul, [facility] [address] [facility] [address] [id number] [id number] Jul, [facility] [address] [facility] [id number], [place] [address] Jun, Opioid use disorder, mild, abuse F11.10 and BMI 50.0-59.9, adult Z68.43 [facility] [address] [address] Jun, [facility] [id number] [place] [address]87[address] Jun, [facility] [id number] [place] [address]- [address] Jun, [facility] [id number] [place] [address] 058263- [address] Jun, Opioid use disorder, mild, abuse F11.10 [facility] [id number] [place] [address] 404279- [address]12 20 Jun, [address] [facility] [id number] [place] [address]51- [address] 19 Jun, 2018 Opioid use disorder, mild, abuse F11.10 [facility] [id number] [place] [address]42- [address] 18 Jun, 2018 BMI 45.0-49.9, adult Z68.42 and Opioid use disorder, mild, abuse F11.10 [facility] [address] [id number] [id number] Jun, [facility] [address] [place] [address] Jun, [facility] [id number] [place] [address]- [address] Jun, [facility] [address] [id number] [id number] 05 Jun, 2018 Osteoarthritis of facet joint of lumbar spine M47.816 [facility] [id number] [place] [address]- [address] May, [facility] [address] [id number] [id number] May, Essential hypertension I10 ; Type 2 diabetes mellitus without complication, without long-term current use of insulin E11.9 ; Osteoarthritis of facet joint of lumbar spine M47.816 ; Tobacco abuse Z72.0 ; Tobacco abuse counseling Z71.6 and BMI 45.0-49.9, adult Z68.42 [place] [id number] [place] [address] 15 Nov, 2017 Osteoarthritis of carpometacarpal joints of both thumbs, unspecified osteoarthritis type M18.0 [place] [id number] [place] [address]- [address] Oct, Primary osteoarthritis, right hand M19.041 [place] [id number] [place] [address]- [address] Oct, Sebaceous cyst L72.3 [place] [id number] [place] [address] 57[address]- [address] Sep, Primary osteoarthritis, right hand M19.041 ; Type 2 diabetes mellitus without complication, without long-term current use of insulin E11.9 ; 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 ; Essential hypertension I10 ; Coronary artery disease involving [place] coronary artery of [place] heart without angina pectoris I25.10 ; BRIA (obstructive sleep apnea) G47.33 ; COPD, mild J44.9 ; Non-healing skin lesion of nose L98.9 ; BMI 50.0- 59.9, adult Z68.43 and Encounter for immunization Z23 [place] [id number] [place] [address]- [address] Sep, Primary osteoarthritis, right hand M19.041 and 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 [place] [id number] [place] [address] 56[address]- 5396 Sep, Pain in right hand M79.641 and Pain of left hand M79.642 [place] [id number] [place] [address]- [address] 05 Sep, 2017 Pain in right hand M79.641 and Pain of left hand M79.642 [place] [address] [address] Aug, [facility] [address] [facility] [id number] [place] [address] Aug, [facility] [address] [facility] [id number] [place] [address] Aug, Type 2 diabetes mellitus without complication, without long- term current use of insulin E11.9 ; Essential hypertension I10 ; Coronary artery disease involving [place] coronary artery of [place] heart without angina pectoris I25.10 ; BRIA (obstructive sleep apnea) G47.33 ; Nocturnal hypoxemia G47.34 ; COPD, mild J44.9 ; Low back pain M54.5 and BMI 40.0-44.9, adult Z68.41 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 was on hydrocodone and morphine and then methadone at pain managment at [place] and then used hydrocodone from pain management [...]
--- OUTSIDE RECORDS SUMMARY | 2018-10-29 05:10 | XMS REPORT | Continuity of Care Document ---
Demographics Preferred Language Unknown Marital Status Unknown [place] Affiliation Unknown Race Unknown Ethnic Group Unknown Author Author [employer] [facility] Organization [facility] [employer] [facility] Address Unknown Phone Unavailable Allergies Active Description Code Type Severity Reaction Onset Reported/Identified Relationship to Patient Clinical Status Yes NO KNOWN DRUG ALLERGIES UNKNOWN NO KNOWN DRUG ALLERG Yes No Known Drug Allergies [id number] Drug Allergy Unknown N/A 06/17/2017 Medications Medication Packaging Start Date Stop Date Route Dosage Sig ORPHENADRINE INJ 60 MG/2CC (NORFLEX) MG 02/10/2018 02/10/2018 ONCE&2017 Ondansetron 4mg oral DissolveTab (Zofran) MG 02/10/2018 02/10/2018 ONCE&2018 Hydromorphone inj 2mg/cc vial (Dilaudid) MG 02/10/2018 02/10/2018 ONCE&2018 POTASSIUM CHLORIDE TAB 20 MEQ (K-DUR) MEQ 02/10/2018 02/10/2018 ONCE&2055 LACTATED RINGERS 1000CC IV BAG INJ ml 02/10/2018 02/10/2018 ONCE&2055 ONDANSETRON VIAL INJ 4 MG/2CC (ZOFRAN 2CC VIAL) MG 02/10/2018 02/10/2018 ONCE&2056 Problems Date Dx Coded Attending Type Code Diagnosis Diagnosed By 06/17/2017 AMANDEEP HINTON Ot E11.9 TYPE 2 DIABETES MELLITUS WITHOUT COMPLIC 06/17/2017 AMANDEEP HINTON Ot F17.210 NICOTINE DEPENDENCE, CIGARETTES, UNCOMPL 06/17/2017 AMANDEEP HINTON Ot I10 ESSENTIAL (PRIMARY) HYPERTENSION 06/17/2017 AMANDEEP HINTON Ot M25.551 PAIN IN RIGHT HIP 06/17/2017 AMANDEEP HINTON Ot S76.011A STRAIN OF MUSCLE, FASCIA AND TENDON OF R 06/17/2017 AMANDEEP HINTON Ot X58.XXXA EXPOSURE TO OTHER SPECIFIED FACTORS, INI 06/17/2017 AMANDEEP HINTON Ot 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 06/17/2017 AMANDEEP HINTON Ot Z87.442 PERSONAL HISTORY OF URINARY CALCULI 06/19/2017 AMANDEEP HINTON Ot E11.9 TYPE 2 DIABETES MELLITUS WITHOUT COMPLIC 06/19/2017 AMANDEEP HINTON Ot F17.210 NICOTINE DEPENDENCE, CIGARETTES, UNCOMPL 06/19/2017 AMANDEEP HINTON Ot I10 ESSENTIAL (PRIMARY) HYPERTENSION 06/19/2017 AMANDEEP HINTON Ot M25.551 PAIN IN RIGHT HIP 06/19/2017 AMANDEEP HINTON Ot S76.011A STRAIN OF MUSCLE, FASCIA AND TENDON OF R 06/19/2017 AMANDEEP HINTON Ot X58.XXXA EXPOSURE TO OTHER SPECIFIED FACTORS, INI 06/19/2017 AMANDEEP HINTON Ot Z79.84 CARE HOME (CURRENT) USE OF ORAL HYPOGLYC 06/19/2017 AMANDEEP HINTON Ot Z87.442 PERSONAL HISTORY OF URINARY CALCULI 07/28/2017 CANDIE MAURICIO MD Ot E11.9 TYPE 2 DIABETES MELLITUS WITHOUT COMPLIC 07/28/2017 CANDIE MAURICIO MD Ot F17.210 NICOTINE DEPENDENCE, CIGARETTES, UNCOMPL 07/28/2017 CANDIE MAURICIO MD Ot H00.011 HORDEOLUM EXTERNUM RIGHT UPPER EYELID 07/28/2017 CANDIE MAURICIO MD Ot H57.11 OCULAR PAIN, RIGHT EYE 07/28/2017 CANDIE MAURICIO MD Ot H57.8 OTHER SPECIFIED DISORDERS OF EYE AND ADN 07/28/2017 CANDIE MAURICIO MD Ot I10 ESSENTIAL (PRIMARY) HYPERTENSION 07/28/2017 CANDIE MAURICIO MD Ot J44.9 CHRONIC OBSTRUCTIVE PULMONARY DISEASE, U 07/28/2017 CANDIE MAURICIO MD Ot 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 07/28/2017 CANDIE MAURICIO MD Ot Z87.442 PERSONAL HISTORY OF URINARY CALCULI 07/31/2017 CHAITANYA HENDERSON APRN Ot E11.65 TYPE 2 DIABETES MELLITUS WITH HYPERGLYCE 07/31/2017 CHAITANYA HENDERSON APRN Ot F17.210 NICOTINE DEPENDENCE, CIGARETTES, UNCOMPL 07/31/2017 CHAITANYA HENDERSON APRN Ot I10 ESSENTIAL (PRIMARY) HYPERTENSION 07/31/2017 CHAITANYA HENDERSON MOVIE EDITOR Ot J44.9 CHRONIC OBSTRUCTIVE PULMONARY DISEASE, U 07/31/2017 CHAITANYA HENDERSON MOVIE EDITOR Ot R73.9 HYPERGLYCEMIA, UNSPECIFIED 07/31/2017 CHAITANYA HENDERSON MOVIE EDITOR Ot Z79.84 CARE HOME (CURRENT) USE OF ORAL HYPOGLYC 07/31/2017 CHAITANYA HENDERSON MOVIE EDITOR Ot Z87.442 PERSONAL HISTORY OF URINARY CALCULI 11/27/2017 CONI DO, HILARIA K Ot E11.9 TYPE 2 DIABETES MELLITUS WITHOUT COMPLIC 11/27/2017 CONI DO, HILARIA K Ot F12.10 CANNABIS ABUSE, UNCOMPLICATED 11/27/2017 CONI DO, HILARIA K Ot F14.10 COCAINE ABUSE, UNCOMPLICATED 11/27/2017 CONI DO, HILARIA K Ot F15.10 OTHER STIMULANT ABUSE, UNCOMPLICATED 11/27/2017 CONI DO, HILARIA K Ot F17.210 NICOTINE DEPENDENCE, CIGARETTES, UNCOMPL 11/27/2017 CONI DO, HILARIA K Ot I10 ESSENTIAL (PRIMARY) HYPERTENSION 11/27/2017 CONI DO, HILARIA K Ot J44.9 CHRONIC OBSTRUCTIVE PULMONARY DISEASE, U 11/27/2017 CONI DO, HILARIA K Ot K42.9 UMBILICAL HERNIA WITHOUT OBSTRUCTION OR 11/27/2017 CONI DO, HILARIA K Ot K59.00 CONSTIPATION, UNSPECIFIED 11/27/2017 CONI DO, HILARIA K Ot R00.0 TACHYCARDIA, UNSPECIFIED 11/27/2017 CONI DO, HILARIA K Ot R10.30 LOWER ABDOMINAL PAIN, UNSPECIFIED 11/27/2017 CONI DO, HILARIA K Ot 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 11/27/2017 CONI DO, HILARIA K Ot Z87.19 PERSONAL HISTORY OF OTHER DISEASES OF TH 11/27/2017 CONI DO, HILARIA K Ot Z87.442 PERSONAL HISTORY OF URINARY CALCULI 02/10/2018 WALTER HERNANDEZ 848.8 OTHER SPECIFIED SITES OF SPRAINS AND STRAINS 02/10/2018 WALTER HERNANDEZ S39.012A STRAIN OF MUSCLE, FASCIA AND TENDON OF LOWER BACK, INIT 05/12/2018 HERBER WINSLOW, TIMI Moreira Ot E11.65 TYPE 2 DIABETES MELLITUS WITH HYPERGLYCE 05/12/2018 OUZINKIE MD, TIMI D Ot F17.210 NICOTINE DEPENDENCE, CIGARETTES, UNCOMPL 05/12/2018 TIMI CRAVEN MD Ot I10 ESSENTIAL (PRIMARY) HYPERTENSION 05/12/2018 TIMI CRAVEN MD, Ot J44.9 CHRONIC OBSTRUCTIVE PULMONARY DISEASE, U 05/12/2018 TIMI CRAVEN MD, Ot M19.041 PRIMARY OSTEOARTHRITIS, RIGHT HAND 05/12/2018 TIMI CRAVEN MD Ot M19.042 PRIMARY OSTEOARTHRITIS, LEFT HAND 05/12/2018 TIMI CRAVEN MD, Ot M54.6 PAIN IN THORACIC SPINE 05/12/2018 TIMI CRAVEN MD Ot R10.9 UNSPECIFIED ABDOMINAL PAIN 05/12/2018 TIMI CRAVEN MD Ot 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 05/12/2018 TIMI CRAVEN MD Ot Z87.19 PERSONAL HISTORY OF OTHER DISEASES OF 05/12/2018 TIMI CRAVEN MD Ot Z87.442 PERSONAL HISTORY OF URINARY CALCULI 09/12/2018 TIMI CRAVEN MD Ot E11.65 TYPE 2 DIABETES MELLITUS WITH HYPERGLYCE 09/12/2018 TIMI CRAVEN MD Ot F17.210 NICOTINE DEPENDENCE, CIGARETTES, UNCOMPL 09/12/2018 TIMI CRAVEN MD Ot I10 ESSENTIAL (PRIMARY) HYPERTENSION 09/12/2018 TIMI CRAVEN MD, Ot J44.9 CHRONIC OBSTRUCTIVE PULMONARY DISEASE, U 09/12/2018 TIMI CRAVEN MD Ot M19.041 PRIMARY OSTEOARTHRITIS, RIGHT HAND 09/12/2018 TIMI CRAVEN MD Ot M19.042 PRIMARY OSTEOARTHRITIS, LEFT HAND 09/12/2018 TIMI CRAVEN MD Ot M54.6 PAIN IN THORACIC SPINE 09/12/2018 TIMI CRAVEN MD Ot R10.9 UNSPECIFIED ABDOMINAL PAIN 09/12/2018 TIMI CRAVEN MD Ot 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 Results Test Result Range Complete urinalysis with reflex to culture - 06/17/17 12:50 Urine color determination YELLOW NRG Urine clarity determination VERY CLOUDY NRG Urine pH measurement by test strip 5 5-9 Specific gravity of urine by test strip 1.030 1.016- 1.022 Urine protein assay by test strip, semi-quantitative 2+ NEGATIVE Urine glucose detection by automated test strip NEGATIVE NEGATIVE Erythrocytes detection in urine sediment by light microscopy NEGATIVE NEGATIVE Urine ketones detection by automated test strip NEGATIVE NEGATIVE Urine nitrite detection by test strip NEGATIVE NEGATIVE Urine total bilirubin detection by test strip NEGATIVE NEGATIVE Urine urobilinogen measurement by automated test strip (mass/volume) 1 mg/dL NORMAL Urine leukocyte esterase detection by dipstick 1+ NEGATIVE Automated urine sediment erythrocyte count by microscopy (number/high power field) NONE NRG Automated urine sediment leukocyte count by microscopy (number/high power field ) [HPF] NRG Bacteria detection in urine sediment by light microscopy NEGATIVE NRG Squamous epithelial cells detection in urine sediment by light microscopy 0-2 NRG Crystals detection in urine sediment by light microscopy NONE NRG Casts detection in urine sediment by light microscopy NONE NRG Mucus detection in urine sediment by light microscopy LARGE NRG Complete urinalysis with reflex to culture NO NRG Capillary blood glucose measurement by glucometer (mass/volume) - 07/31/17 12: 03 Capillary blood glucose measurement by glucometer (mass/volume) 300 mg/dL 70-110 Complete blood count (CBC) with automated white blood cell (WBC) differential - 07/31/17 12:10 Blood leukocytes automated count (number/volume) 10.4 10*3/uL 4.3-11.0 Blood erythrocytes automated count (number/volume) 5.15 10*6/uL 4.35-5.85 Venous blood hemoglobin measurement (mass/volume) 15.2 g/dL 13.3-17.7 Blood hematocrit (volume fraction) 46 % 40-54 Automated erythrocyte mean corpuscular volume 89 [foz_us] 80-99 Automated erythrocyte mean corpuscular hemoglobin (mass per erythrocyte) 30 pg 25-34 Automated erythrocyte mean corpuscular hemoglobin concentration measurement ( mass/volume) 33 g/dL 32-36 Automated erythrocyte distribution width ratio 13.3 % 10.0-14.5 Automated blood platelet count (count/volume) 347 10*3/uL 130-400 Automated blood platelet mean volume measurement 10.0 [foz_us] 7.4-10.4 Automated blood neutrophils/100 leukocytes 89 % 42-75 Automated blood lymphocytes/100 leukocytes 10 % 12-44 Blood monocytes/100 leukocytes 1 % 0-12 Automated blood eosinophils/100 leukocytes 0 % 0-10 Automated blood basophils/100 leukocytes 0 % 0-10 Blood neutrophils automated count (number/volume) 9.2 10*3 1.8-7.8 Blood lymphocytes automated count (number/volume) 1.0 10*3 1.0-4.0 Blood monocytes automated count (number/volume) 0.1 10*3 0.0-1.0 Automated eosinophil count 0.0 10*3/uL 0.0-0.3 Automated blood basophil count (count/volume) 0.0 10*3/uL 0.0-0.1 Blood manual differential performed detection - 07/31/17 12:10 Blood monocytes/100 leukocytes 0 % NRG Manual blood segmented neutrophils/100 leukocytes 87 % NRG Blood band neutrophils/100 leukocytes 0 % NRG Manual blood lymphocytes/100 leukocytes 13 % NRG Manual eosinophils/100 leukocytes in nose 0 % NRG Manual blood basophils/100 leukocytes 0 % NRG Blood erythrocyte morphology finding identification NORMAL NR Comprehensive metabolic panel - 07/31/17 12:10 Serum or plasma sodium measurement (moles/volume) 135 mmol/L 135-145 Serum or plasma potassium measurement (moles/volume) 4.4 mmol/L 3.6-5.0 Serum or plasma chloride measurement (moles/volume) 102 mmol/L 98-107 Carbon dioxide 24 mmol/L 21-32 Serum or plasma anion gap determination (moles/volume) 9 mmol/L 5-14 Serum or plasma urea nitrogen measurement (mass/volume) 18 mg/dL 7-18 Serum or plasma creatinine measurement (mass/volume) 1.04 mg/dL 0.60-1.30 Serum or plasma urea nitrogen/creatinine mass ratio 17 NRG Serum or plasma creatinine measurement with calculation of estimated glomerular filtration rate > NRG Serum or plasma glucose measurement (mass/volume) 352 mg/dL 70-105 Serum or plasma calcium measurement (mass/volume) 9.3 mg/dL 8.5-10.1 Serum or plasma total bilirubin measurement (mass/volume) 0.6 mg/dL 0.1-1.0 Serum or plasma alkaline phosphatase measurement (enzymatic activity/volume) 102 U/L 40-136 Serum or plasma aspartate aminotransferase measurement (enzymatic activity/ volume) 14 U/L 5-34 Serum or plasma alanine aminotransferase measurement (enzymatic activity/volume ) 28 U/L 0-55 Serum or plasma protein measurement (mass/volume) 7.6 g/dL 6.4-8.2 Serum or plasma albumin measurement (mass/volume) 4.2 g/dL 3.2-4.5 Complete urinalysis with reflex to culture - 07/31/17 12:41 Urine color determination YELLOW NRG Urine clarity determination CLEAR NRG Urine pH measurement by test strip 6 5-9 Specific gravity of urine by test strip 1.020 1.016- 1.022 Urine protein assay by test strip, semi-quantitative 2+ NEGATIVE Urine glucose detection by automated test strip 3+ NEGATIVE Erythrocytes detection in urine sediment by light microscopy NEGATIVE NEGATIVE Urine ketones detection by automated test strip 1+ NEGATIVE Urine nitrite detection by test strip NEGATIVE NEGATIVE Urine total bilirubin detection by test strip NEGATIVE NEGATIVE Urine urobilinogen measurement by automated test strip (mass/volume) NORMAL NORMAL Urine leukocyte esterase detection by dipstick NEGATIVE NEGATIVE Automated urine sediment erythrocyte count by microscopy (number/high power field) NONE NRG Automated urine sediment leukocyte count by microscopy (number/high power field ) NONE NRG Bacteria detection in urine sediment by light microscopy NEGATIVE NRG Squamous epithelial cells detection in urine sediment by light microscopy NONE NRG Crystals detection in urine sediment by light microscopy NONE NRG Casts detection in urine sediment by light microscopy NONE NRG Mucus detection in urine sediment by light microscopy SMALL NRG Complete urinalysis with reflex to culture NO NRG TSH - 08/29/17 14:17 TSH 0.65 mIU/L 0.40-4.50 Capillary blood glucose measurement by glucometer (mass/volume) - 11/27/17 18: 30 Capillary blood glucose measurement by glucometer (mass/volume) 246 mg/dL 70-110 Complete blood count (CBC) with automated white blood cell (WBC) differential - 11/27/17 18:30 Blood leukocytes automated count (number/volume) 9.8 10*3/uL 4.3-11.0 Blood erythrocytes automated count (number/volume) 5.05 10*6/uL 4.35-5.85 Venous blood hemoglobin measurement (mass/volume) 15.5 g/dL 13.3-17.7 Blood hematocrit (volume fraction) 44 % 40-54 Automated erythrocyte mean corpuscular volume 87 [foz_us] 80-99 Automated erythrocyte mean corpuscular hemoglobin (mass per erythrocyte) 31 pg 25-34 Automated erythrocyte mean corpuscular hemoglobin concentration measurement ( mass/volume) 36 g/dL 32-36 Automated erythrocyte distribution width ratio 12.5 % 10.0-14.5 Automated blood platelet count (count/volume) 377 10*3/uL 130-400 Automated blood platelet mean volume measurement 10.0 [foz_us] 7.4-10.4 Automated blood neutrophils/100 leukocytes 60 % 42-75 Automated blood lymphocytes/100 leukocytes 30 % 12-44 Blood monocytes/100 leukocytes 7 % 0-12 Automated blood eosinophils/100 leukocytes 2 % 0-10 Automated blood basophils/100 leukocytes 1 % 0-10 Blood neutrophils automated count (number/volume) 5.9 10*3 1.8-7.8 Blood lymphocytes automated count (number/volume) 3.0 10*3 1.0-4.0 Blood monocytes automated count (number/volume) 0.7 10*3 0.0-1.0 Automated eosinophil count 0.2 10*3/uL 0.0-0.3 Automated blood basophil count (count/volume) 0.1 10*3/uL 0.0-0.1 PT panel in platelet poor plasma by coagulation assay - 11/27/17 18:30 Prothrombin time (PT) in platelet poor plasma by coagulation assay 11.1 s 12.2-14.7 INR in platelet poor plasma or blood by coagulation assay 0.8 0.8-1.4 Activated partial thromboplastin time (aPTT) in platelet poor plasma bycoagulation assay - 11/27/17 18:30 Activated partial thromboplastin time (aPTT) in platelet poor plasma bycoagulation assay 34 s 24-35 Comprehensive metabolic panel - 11/27/17 18:30 Serum or plasma sodium measurement (moles/volume) 137 mmol/L 135-145 Serum or plasma potassium measurement (moles/volume) 4.2 mmol/L 3.6-5.0 Serum or plasma chloride measurement (moles/volume) 103 mmol/L 98-107 Carbon dioxide 22 mmol/L 21-32 Serum or plasma anion gap determination (moles/volume) 12 mmol/L 5-14 Serum or plasma urea nitrogen measurement (mass/volume) 12 mg/dL 7-18 Serum or plasma creatinine measurement (mass/volume) 0.84 mg/dL 0.60-1.30 Serum or plasma urea nitrogen/creatinine mass ratio 14 NRG Serum or plasma creatinine measurement with calculation of estimated glomerular filtration rate > NRG Serum or plasma glucose measurement (mass/volume) 261 mg/dL 70-105 Serum or plasma calcium measurement (mass/volume) 9.0 mg/dL 8.5-10.1 Serum or plasma total bilirubin measurement (mass/volume) 0.2 mg/dL 0.1-1.0 Serum or plasma alkaline phosphatase measurement (enzymatic activity/volume) 121 U/L 40-136 Serum or plasma aspartate aminotransferase measurement (enzymatic activity/ volume) 19 U/L 5-34 Serum or plasma alanine aminotransferase measurement (enzymatic activity/volume ) 27 U/L 0-55 Serum or plasma protein measurement (mass/volume) 7.5 g/dL 6.4-8.2 Serum or plasma albumin measurement (mass/volume) 4.0 g/dL 3.2-4.5 Magnesium - 11/27/17 18:30 Magnesium 2.2 mg/dL 1.8-2.4 Serum or plasma creatine kinase measurement (enzymatic activity/volume) - 11/27 18:30 Serum or plasma creatine kinase measurement (enzymatic activity/volume) 97 U/L 30-200 Serum or plasma creatine kinase MB measurement (enzymatic activity/volume) - 18:30 Serum or plasma creatine kinase MB measurement (enzymatic activity/volume) 1.6 ng/mL <6.6 Serum or plasma troponin i.cardiac measurement (mass/volume) - 11/27/17 18:30 Serum or plasma troponin i.cardiac measurement (mass/volume) < ng/ mL <0.30 Serum or plasma amylase measurement (enzymatic activity/volume) - 11/27/17 18: 30 Serum or plasma amylase measurement (enzymatic activity/volume) 34 U /L 25-125 Serum or plasma lithium measurement (moles/volume) - 11/27/17 18:30 BNP level < pg/mL <100.0 Lipase - 11/27/17 18:30 Lipase 16 U/L 8-78 Serum or plasma thyrotropin measurement by detection limit <=0.05 miu/l (units/ volume) - 11/27/17 18:30 Serum or plasma thyrotropin measurement by detection limit <=0.05 miu/l (units/ volume) 0.93 u[iU]/mL 0.35-4.94 Serum or plasma ethanol measurement (mass/volume) - 11/27/17 18:30 Serum or plasma ethanol measurement (mass/volume) < mg/dL <10 Urine drug screening test - 11/27/17 18:37 Urine phencyclidine detection by screening method NEGATIVE NEGATIVE Urine benzodiazepines detection by screening method NEGATIVE NEGATIVE Urine cocaine detection NEGATIVE NEGATIVE Urine amphetamines detection by screening method POSITIVE NEGATIVE Urine methamphetamine detection by screening method POSITIVE NEGATIVE Urine cannabinoids detection by screening method NEGATIVE NEGATIVE Urine opiates detection by screening method POSITIVE NEGATIVE Urine barbiturates detection NEGATIVE NEGATIVE Screening urine tricyclic antidepressants detection NEGATIVE NEGATIVE Urine methadone detection by screening method NEGATIVE NEGATIVE Urine oxycodone detection NEGATIVE NEGATIVE Urine propoxyphene detection NEGATIVE NEGATIVE Complete urinalysis with reflex to culture - 11/27/17 18:37 Urine color determination YELLOW NRG Urine clarity determination CLEAR NRG Urine pH measurement by test strip 6 5-9 Specific gravity of urine by test strip 1.020 1.016- 1.022 Urine protein assay by test strip, semi-quantitative 1+ NEGATIVE Urine glucose detection by automated test strip 4+ NEGATIVE Erythrocytes detection in urine sediment by light microscopy NEGATIVE NEGATIVE Urine ketones detection by automated test strip NEGATIVE NEGATIVE Urine nitrite detection by test strip NEGATIVE NEGATIVE Urine total bilirubin detection by test strip NEGATIVE NEGATIVE Urine urobilinogen measurement by automated test strip (mass/volume) NORMAL NORMAL Urine leukocyte esterase detection by dipstick NEGATIVE NEGATIVE Automated urine sediment erythrocyte count by microscopy (number/high power field) NONE NRG Automated urine sediment leukocyte count by microscopy (number/high power field ) RARE NRG Bacteria detection in urine sediment by light microscopy NEGATIVE NRG Squamous epithelial cells detection in urine sediment by light microscopy NONE NRG Crystals detection in urine sediment by light microscopy PRESENT NRG Casts detection in urine sediment by light microscopy NONE NRG Mucus detection in urine sediment by light microscopy NEGATIVE NRG Complete urinalysis with reflex to culture NO NRG Calcium oxalate crystals detection in urine sediment by light microscopy FEW NRG Complete blood count (CBC) with automated white blood cell (WBC) differential - 05/12/18 03:02 Blood leukocytes automated count (number/volume) 10.2 10*3/uL 4.3-11.0 Blood erythrocytes automated count (number/volume) 5.19 10*6/uL 4.35-5.85 Venous blood hemoglobin measurement (mass/volume) 15.4 g/dL 13.3-17.7 Blood hematocrit (volume fraction) 44 % 40-54 Automated erythrocyte mean corpuscular volume 85 [foz_us] 80-99 Automated erythrocyte mean corpuscular hemoglobin (mass per erythrocyte) 30 pg 25-34 Automated erythrocyte mean corpuscular hemoglobin concentration measurement ( mass/volume) 35 g/dL 32-36 Automated erythrocyte distribution width ratio 12.7 % 10.0-14.5 Automated blood platelet count (count/volume) 483 10*3/uL 130-400 Automated blood platelet mean volume measurement 9.5 [foz_us] 7.4-10.4 Automated blood neutrophils/100 leukocytes 59 % 42-75 Automated blood lymphocytes/100 leukocytes 34 % 12-44 Blood monocytes/100 leukocytes 6 % 0-12 Automated blood eosinophils/100 leukocytes 1 % 0-10 Automated blood basophils/100 leukocytes 1 % 0-10 Blood neutrophils automated count (number/volume) 6.0 10*3 1.8-7.8 Blood lymphocytes automated count (number/volume) 3.4 10*3 1.0-4.0 Blood monocytes automated count (number/volume) 0.6 10*3 0.0-1.0 Automated eosinophil count 0.1 10*3/uL 0.0-0.3 Automated blood basophil count (count/volume) 0.1 10*3/uL 0.0-0.1 Comprehensive metabolic panel - 05/12/18 03:02 Serum or plasma sodium measurement (moles/volume) 133 mmol/L 135-145 Serum or plasma potassium measurement (moles/volume) 4.1 mmol/L 3.6-5.0 Serum or plasma chloride measurement (moles/volume) 100 mmol/L 98-107 Carbon dioxide 22 mmol/L 21-32 Serum or plasma anion gap determination (moles/volume) 11 mmol/L 5-14 Serum or plasma urea nitrogen measurement (mass/volume) 14 mg/dL 7-18 Serum or plasma creatinine measurement (mass/volume) 0.85 mg/dL 0.60-1.30 Serum or plasma urea nitrogen/creatinine mass ratio 16 NRG Serum or plasma creatinine measurement with calculation of estimated glomerular filtration rate > NRG Serum or plasma glucose measurement (mass/volume) 390 mg/dL 70-105 Serum or plasma calcium measurement (mass/volume) 9.5 mg/dL 8.5-10.1 Serum or plasma total bilirubin measurement (mass/volume) 0.3 mg/dL 0.1-1.0 Serum or plasma alkaline phosphatase measurement (enzymatic activity/volume) 138 U/L 40-136 Serum or plasma aspartate aminotransferase measurement (enzymatic activity/ volume) 15 U/L 5-34 Serum or plasma alanine aminotransferase measurement (enzymatic activity/volume ) 37 U/L 0-55 Serum or plasma protein measurement (mass/volume) 7.6 g/dL 6.4-8.2 Serum or plasma albumin measurement (mass/volume) 4.0 g/dL 3.2-4.5 Complete urinalysis with reflex to culture - 05/12/18 03:05 Urine color determination YELLOW NRG Urine clarity determination CLEAR NRG Urine pH measurement by test strip 6 5-9 Specific gravity of urine by test strip 1.015 1.016- 1.022 Urine protein assay by test strip, semi-quantitative NEGATIVE NEGATIVE Urine glucose detection by automated test strip 4+ NEGATIVE Erythrocytes detection in urine sediment by light microscopy NEGATIVE NEGATIVE Urine ketones detection by automated test strip NEGATIVE NEGATIVE Urine nitrite detection by test strip NEGATIVE NEGATIVE Urine total bilirubin detection by test strip NEGATIVE NEGATIVE Urine urobilinogen measurement by automated test strip (mass/volume) NORMAL NORMAL Urine leukocyte esterase detection by dipstick NEGATIVE NEGATIVE Automated urine sediment erythrocyte count by microscopy (number/high power field) NONE NRG Automated urine sediment leukocyte count by microscopy (number/high power field ) NONE NRG Bacteria detection in urine sediment by light microscopy NEGATIVE NRG Squamous epithelial cells detection in urine sediment by light microscopy RARE NRG Crystals detection in urine sediment by light microscopy NONE NRG Casts detection in urine sediment by light microscopy NONE NRG Mucus detection in urine sediment by light microscopy NEGATIVE NRG Complete urinalysis with reflex to culture NO NRG CRP - 06/18/18 16:06 C-REACTIVE PROTEIN 4.7 mg/L <8.0 RA (RHEUMATOID) FACTOR - 06/18/18 16:06 RHEUMATOID FACTOR <14 IU/mL <14 BEAR ANALYZER - 06/18/18 16:06 BEAR SCREEN, IFA NEGATIVE NEGATIVE VITAMIN D, 25-H - 06/18/18 16:06 VITAMIN D,25-OH,TOTAL,IA 13 ng/mL 30-100 PDM - AMPHETAMINES W/ REFLEX d/l ISOMERS - 08/22/18 11:40 Prescribed Drug 1 Buprenorphine NRG COMMENT NRG Prescribed Drug 2 Buprenorphine NRG Amphetamine NEGATIVE ng/mL <250 medMATCH Amphetamine CONSISTENT NRG Methamphetamine NEGATIVE ng/mL <250 medMATCH Methamphetamine CONSISTENT NRG Encounters ACCT No. Visit Date/Time Discharge Status Pt. Type Provider Facility Loc./Unit Complaint [id number] 05/12/2018 02:38:00 05/12/2018 04:40:00 DIS Outpatient HERBER WINSLOW, TIMI Moreira Via [facility] [address] ER SIDE PAIN POSS KIDNEY STONES [id number] 11/27/2017 18:07:00 11/27/2017 20:32:00 DIS Emergency HILARIA NEWBERRY DO Via [facility] [address] ER HERNIA PAIN [id number] 07/31/2017 11:53:00 07/31/2017 13:15:00 DIS Emergency CHAITANYA HENDERSON APRN Via [facility] [address] ER BLOOD SUGAR HIGH [id number] 07/28/2017 00:03:00 07/28/2017 03:08:00 DIS Emergency CANDIE MAURICIO MD Via [facility] [address] ER F O IN RT EYE [id number] 06/17/2017 12:34:00 06/17/2017 15:40:00 DIS Emergency AMANDEEP HINTON Via [facility] [address] ER R SIDE HIP PAIN [id number] 09/27/2018 12:30:00 09/27/2018 23:59:59 CLS Outpatient EMERSON GAUTAM [facility] [id number] 08/22/2018 11:00:00 Document Registration [id number] 06/18/2018 15:00:00 Document Registration [id number] 08/29/2017 13:20:00 Document Registration [id number] 02/10/2018 19:50:00 02/10/2018 21:18:00 DIS Outpatient WALTER HERNANDEZ [facility] ER [id number] 02/10/2018 20:17:50 Document Registration
[2018-10-29] MEDS ORDERED: ASPIRIN 81 MG CHEW (CHILDREN'S ASA) ONE (05:21)
[2018-10-29 05:30] LABS: BASOPHILS % (AUTO) 0 % (0-10); EOSINOPHILS # (AUTO) 0.2 10^3/uL (0.0-0.3); EOSINOPHILS % (AUTO) 2 % (0-10); HEMATOCRIT 46 % (40-54); HEMOGLOBIN 15.6 G/DL (13.3-17.7); LYMPHOCYTES # (AUTO) 3.6 X 10^3 (1.0-4.0); LYMPHOCYTES % (AUTO) 38 % (12-44); MEAN CORPUSCULAR HEMOGLOBIN 29 PG (25-34); MEAN CORPUSCULAR HGB CONC 34 G/DL (32-36); MEAN CORPUSCULAR VOLUME 86 FL (80-99); MEAN PLATELET VOLUME 10.7 FL (7.4-10.4); MONOCYTES # (AUTO) 0.6 X 10^3 (0.0-1.0); MONOCYTES % (AUTO) 6 % (0-12); NEUTROPHILS # (AUTO) 5.1 X 10^3 (1.8-7.8); NEUTROPHILS % (AUTO) 54 % (42-75); PLATELET COUNT 361 10^3/uL (130-400); RED BLOOD COUNT 5.39 10^6/uL (4.35-5.85); RED CELL DISTRIBUTION WIDTH 12.7 % (10.0-14.5); WHITE BLOOD COUNT 9.5 10^3/uL (4.3-11.0)
[2018-10-29 05:47] LABS: ALANINE AMINOTRANSFERASE 40 U/L (0-55); ALBUMIN 4.3 GM/DL (3.2-4.5); ALKALINE PHOSPHATASE 133 U/L (40-136); BILIRUBIN,TOTAL 0.4 MG/DL (0.1-1.0); BUN/CREATININE RATIO 9; CALCIUM 9.7 MG/DL (8.5-10.1); CARBON DIOXIDE 22 MMOL/L (21-32); CHLORIDE 103 MMOL/L (98-107); CREATINE KINASE 41 U/L (30-200); GFR ESTIMATED > 60; POTASSIUM 3.8 MMOL/L (3.6-5.0); SODIUM 139 MMOL/L (135-145); TOTAL PROTEIN 7.5 GM/DL (6.4-8.2)
[2018-10-29 05:49] LABS: INR 0.9 (0.8-1.4); PROTHROMBIN TIME PATIENT 12.1 SEC (12.2-14.7)
[2018-10-29 05:53] LABS: CREATINE KINASE MB 0.6 NG/ML (<6.6)
[2018-10-29] MEDS ORDERED: ASPIRIN 81 MG CHEW (CHILDREN'S ASA) PO ONE (06:00)
[2018-10-29 06:05] LABS: GLUCOSE 449 MG/DL (70-105)
--- NOTE | 2018-10-29 06:05 | ED General ---
General Chief Complaint: Cough/Cold/Flu Symptoms Stated Complaint: SINUS CONGESTION BACK PAIN Nursing Triage Note: Pt. states he has been experiencing what he believes to be a sinus infection x 2 weeks. He denies being seen for it and is not currently taking any antibiotics. He advises that he wears a CPAP at night and that within the last week he has been experiencing copious amounts of secretions and will awaken with his mouth full of sputum. Pt. temp 99.8. Nursing Sepsis Screen: No Definite Risk Source of Information: Patient (PT IS SOMEWHAT LIMITED AND VAGUE HISTORIAN) History of Present Illness Date Seen by Provider: Oct 29, 2018 Time Seen by Provider: 05:20 Initial Comments PT ARRIVES VIA POV FROM HOME C/O COUGH / CONGESTION AND SINUS DRAINAGE X 2 WEEKS STATES HE HAS NOT BEEN ABLE TO SLEEP WITH HIS CPAP DUE TO CONSTANT BUILDUP OF MUCOUS ON DIRECT QUESTIONING ABOUT CHEST PAIN, SHORTNESS OF BREATH OR PAIN WITH BREATHING, HE ADMITS THAT HE HAS HAD SOME OF ALL OF THOSE SYMPTOMS PT STATES HE SWEATS ALL THE TIME, NORMALLY--ESPECIALLY HIS HEAD STATES YESTERDAY HE HAD CHILLS ALL DAY NO SWELLING IN LEGS/ FEET OR PAIN IN CALVES SYMPTOMS NO DIFFERENT TODAY HAS NOT SOUGHT CARE UNTIL TODAY TAKES OTC NASAL SPRAY ON REGULAR BASIS, BUT RAN OUT LAST NIGHT. PT HAS NOT TAKEN ANYTHING ELSE FOR SYMPTOMS PT STATES HE IS DIABETIC AND BLOOD SUGARS ALWAYS IN THE 200-400'S AND AT TIMES IN 600'S STATES HE IS SUPPOSED TO HAVE STARTED TAKING JARDIANCE FOR HIS DIABETES, BUT HAS NOT STARTED TAKING IT YET--GIVES NO REASON TO WHY HE HAS NOT STARTED IT. PT HAS NOT ATTEMPTED TO SEE ANYONE FOR THESE SYMPTOMS UNTIL TODAY SYMPTOMS NO DIFFERENT TODAY. PCP: DR. MOREAU/ [facility] Allergies and Home Medications Allergies Coded Allergies: No Known Drug Allergies (Unverified , 06/17/17) Home Medications Atenolol 25 Mg Tablet, Unknown Dose PO DAILY, (Reported) Atenolol 25 Mg Tablet, 25 MG PO DAILY Prescribed by: CHAITANYA HENDERSON on 07/31/17 1210 Glimepiride 1 Mg Tablet, 1 MG PO DAILY Prescribed by: CHAITANYA HENDERSON on 07/31/17 1210 Lisinopril 2.5 Mg Tablet, Unknown Dose PO DAILY, (Reported) Lisinopril 10 Mg Tablet, 10 MG PO DAILY Prescribed by: CHAITANYA HENDERSON on 07/31/17 1210 Metformin HCl 1,000 Mg Tablet, 1,000 MG PO BID Prescribed by: CHAITANYA HENDERSON on 07/31/17 1210 Sulfamethoxazole/Trimethoprim 1 Each Tablet, 1 EACH PO BID Prescribed by: HILARIA NEWBERRY on 11/27/171958 Patient Home Medication List Home Medication List Reviewed: Yes Review of Systems Review of Systems Constitutional: see HPI, chills, diaphoresis EENTM: see HPI, nose congestion; No throat pain Respiratory: see HPI, cough, short of breath Cardiovascular: see HPI, chest pain; No edema, No palpitations Gastrointestinal: No abdominal pain, No nausea, No vomiting, No other ( UMBILICAL HERNIA WITH SCABBED SORE THAT HAS NOT HEALED IN OVER A YEAR) Musculoskeletal: no symptoms reported Skin: no symptoms reported Psychiatric/Neurological: No Symptoms Reported Hematologic/Lymphatic: No Symptoms Reported Immunological/Allergic: no symptoms reported Past Ckobyrc-Lrjici-Vawemz Hx Patient Social History Alcohol Use: Past History (HISTORY OF ABUSE--CLAIMS NONE IN OVER 10 YEARS, PER PT ON ) Recreational Drug Use: Yes (COCAINE/CRACK COCAINE-STATES HE SMOKED AND SNORTED IT. ALSO ADMITS TO ECSTASY USE. DENIES IV USE. PT CLAIMS NO USE FOR 10 YEARES PER PT ON 10/29/17, BUT TESTED + FOR METH/AMPHETAMINES AND OPIATES 11/27/17. ) Drug of Choice: COCAINE/CRACK & ECSTASY-TESTED + FOR METH/AMPHETAMINES AND OPIATES 11/27/17 Smoking Status: Current Everyday Smoker (1 PPD) Type Used: Cigarettes 2nd Hand Smoke Exposure: Yes Recent Foreign Travel: No Contact w/Someone Who Travel: No Recent Infectious Disease Expo: No Recent Hopitalizations: No Seasonal Allergies Seasonal Allergies: No Past Medical History Surgeries: Yes (CARDIAC CATH X 2--NO INTERVENTION; KIDNEY STONES--LITHOTRIPSY X1, BASKET REMOVAL X 1) Cardiac, Renal Respiratory: Yes Sleep Apnea, COPD Currently Using CPAP: Yes Cardiac: Yes Hypertension Neurological: No Genitourinary: Yes Kidney Stones Gastrointestinal: Yes (UMBILICAL HERNIA, NO REPAIR) Abdominal Hernia Musculoskeletal: Yes (ARTHRITIS IN HANDS/THUMBS) Arthritis, Chronic Back Pain Endocrine: Yes (OBESITY; UNCONTROLLED DIABETES) Diabetes, Non-Insulin dep HEENT: Yes Cataract Cancer: No Psychosocial: No Integumentary: No Blood Disorders: No Family Medical History No Pertinent Family Hx Physical Exam Vital Signs Vital Signs - First Documented 10/29/18 05:15 Temp 99.8 Pulse 90 Resp 20 B/P (MAP) 127/100 (109) Pulse Ox 96 O2 Delivery Room Air Capillary Refill : Less Than 3 Seconds Height, Weight, BMI Height: 6'1.00" Weight: 280lbs. 0oz. 127.163961tm; BMI Method:Stated General Appearance: No Apparent Distress, Anxious (MILDLY ANXIOUS, CONSTANT MOVEMENTS. TALKS NON-STOP AT LENGTH, IN FULL SENTENCES. SPEECH SOMEWHAT MUMBLED AND RAPID. ), Obese, Other (REEKS OF CIGARETTES. COVERED IN ANIMAL HAIR. DOES NOT APPEAR TO BE IN ANY DISCOMFORT OR DISTRESS) HEENT: PERRL/EOMI Neck: Full Range of Motion, Normal Inspection, Non Tender, Supple; No Carotid Bruit, No JVD Respiratory: Chest Non Tender, No Accessory Muscle Use, No Respiratory Distress , Rales (ON RIGHT) Cardiovascular: Regular Rate, Rhythm (WITH FREQUENT ECTOPY-PVC'S AND QUADRIGEMINY ON MONITOR), No Edema, No JVD, No Murmur, Normal Peripheral Pulses Gastrointestinal: Normal Bowel Sounds, Non Tender, Soft, Hernia (MODERATE SIZED , SOFT, REDUCIBLE UMBILICAL HERNIA WITH SCABBED ULCERATION. NO DRAINAGE OR SIGNS OF INFECTION) Back: No CVA Tenderness Extremity: Normal Capillary Refill, Normal Inspection, Normal Range of Motion, Non Tender, No Calf Tenderness, No Pedal Edema Neurologic/Psychiatric: Alert, Oriented x3, No Motor/Sensory Deficits, Normal Mood/Affect, editor II-XII Norm as Tested Skin: Normal Color, Warm/Dry, Tattoos/Piercings (MULTIPLE TATTOOS) Focused Exam Lactate Level 10/29/18 05:12: Lactic Acid Level 2.94*H Lactic Acid Level Laboratory Tests Test 10/29/18 05:12 Lactic Acid Level 2.94 MMOL/L (0.50-2.00) *H Progress/Results/Core Measures Suspected Sepsis Recent Fever Within 48 Hours: No Infection Criteria Present: Suspected New Infection New/Unexplained Altered Menta: No Sepsis Screen: No Definite Risk SIRS Temperature:99.8 Pulse: 90 Respiratory Rate: 20 Laboratory Tests 10/29/18 05:12: White Blood Count 9.5 Blood Pressure 127 /100 Mean: 109 10/29/18 05:12: Lactic Acid Level 2.94*H Laboratory Tests 10/29/18 05:12: Creatinine 1.10, INR Comment 0.9, Platelet Count 361, Total Bilirubin 0.4 Results/Orders Lab Results Laboratory Tests Test 10/29/18 05:12 10/29/18 05:15 10/29/18 06:20 10/29/18 06:28 Range/Units White Blood Count 9.5 4.3-11.0 10^3/uL Red Blood Count 5.39 4.35-5.85 10^6/uL Hemoglobin 15.6 13.3-17.7 G/DL Hematocrit 46 40-54 % Mean Corpuscular Volume 86 80-99 FL Mean Corpuscular Hemoglobin 29 25-34 PG Mean Corpuscular Hemoglobin Concent 34 32-36 G/DL Red Cell Distribution Width 12.7 10.0-14.5 % Platelet Count 361 130-400 10^3/uL Mean Platelet Volume 10.7 H 7.4-10.4 FL Neutrophils (%) (Auto) 54 42-75 % Lymphocytes (%) (Auto) 38 12-44 % Monocytes (%) (Auto) 6 0-12 % Eosinophils (%) (Auto) 2 0-10 % Basophils (%) (Auto) 0 0-10 % Neutrophils # (Auto) 5.1 1.8-7.8 X 10^3 Lymphocytes # (Auto) 3.6 1.0-4.0 X 10^3 Monocytes # (Auto) 0.6 0.0-1.0 X 10^3 Eosinophils # (Auto) 0.2 0.0-0.3 10^3/uL Basophils # (Auto) 0.0 0.0-0.1 10^3/uL Prothrombin Time 12.1 L 12.2-14.7 SEC INR Comment 0.9 0.8-1.4 Activated Partial Thromboplast Time 34 24-35 SEC Sodium Level 139 135-145 MMOL/L Potassium Level 3.8 3.6-5.0 MMOL/L Chloride Level 103 98-107 MMOL/L Carbon Dioxide Level 22 21-32 MMOL/L Anion Gap 14 5-14 MMOL/L Blood Urea Nitrogen 10 7-18 MG/DL Creatinine 1.10 0.60-1.30 MG/DL Estimat Glomerular Filtration Rate > 60 BUN/Creatinine Ratio 9 Glucose Level 449 *H 70-105 MG/DL Lactic Acid Level 2.94 *H 0.50-2.00 MMOL/L Calcium Level 9.7 8.5-10.1 MG/DL Corrected Calcium 9.5 8.5-10.1 MG/DL Magnesium Level 2.0 1.8-2.4 MG/DL Total Bilirubin 0.4 0.1-1.0 MG/DL Aspartate Amino Transf (AST/SGOT) 13 5-34 U/L Alanine Aminotransferase (ALT/SGPT) 40 0-55 U/L Alkaline Phosphatase 133 40-136 U/L Total Creatine Kinase 41 30-200 U/L Creatine Kinase MB 0.6 <6.6 NG/ML Troponin I < 0.30 <0.30 NG/ML B-Type Natriuretic Peptide 31.6 <100.0 PG/ML Total Protein 7.5 6.4-8.2 GM/DL Albumin 4.3 3.2-4.5 GM/DL Serum Alcohol < 10 <10 MG/DL Blood Gas Puncture Site R RADIAL Blood Gas Patient Temperature 100.0 Arterial Blood pH 7.41 7.37-7.43 Arterial Blood Partial Pressure CO2 40 35-45 MMHG Arterial Blood Partial Pressure O2 90 79-93 MMHG Arterial Blood HCO3 24 23-27 MMOL/L Arterial Blood Total CO2 25.3 21.0-31.0 MMOL/L Arterial Blood Oxygen Saturation 97 94-100 % Arterial Blood Base Excess 0.2 -2.5-2.5 MMOL/L Aston Test POSITIVE Blood Gas Ventilator Setting NO Blood Gas Inspired Oxygen N Urine Color YELLOW Urine Clarity CLEAR Urine pH 6 5-9 Urine Specific [place] 1.015 L 1.016-1.022 Urine Protein NEGATIVE NEGATIVE Urine Glucose (UA) 4+ H NEGATIVE Urine Ketones NEGATIVE NEGATIVE Urine Nitrite NEGATIVE NEGATIVE Urine Bilirubin NEGATIVE NEGATIVE Urine Urobilinogen NORMAL NORMAL MG/DL Urine Leukocyte Esterase NEGATIVE NEGATIVE Urine RBC (Auto) NEGATIVE NEGATIVE Urine RBC NONE /HPF Urine WBC NONE /HPF Urine Squamous Epithelial Cells 0-2 /HPF Urine Crystals NONE /LPF Urine Bacteria TRACE /HPF Urine Casts NONE /LPF Urine Mucus NEGATIVE /LPF Urine Culture Indicated NO Urine Opiates Screen NEGATIVE NEGATIVE Urine Oxycodone Screen NEGATIVE NEGATIVE Urine Methadone Screen NEGATIVE NEGATIVE Urine Propoxyphene Screen NEGATIVE NEGATIVE Urine Barbiturates Screen NEGATIVE NEGATIVE Ur Tricyclic Antidepressants Screen NEGATIVE NEGATIVE Urine Phencyclidine Screen NEGATIVE NEGATIVE Urine Amphetamines Screen NEGATIVE NEGATIVE Urine Methamphetamines Screen NEGATIVE NEGATIVE Urine Benzodiazepines Screen NEGATIVE NEGATIVE Urine Cocaine Screen NEGATIVE NEGATIVE Urine Cannabinoids Screen NEGATIVE NEGATIVE Micro Results Microbiology 10/29/18 Influenza Types A,B Antigen (LINN) - Final, Complete My Orders Orders - HILARIA NEWBERRY DO Monitor-Rhythm Ecg Trace Only (10/29/18 05:17) Influenza A And B Antigens (10/29/18 05:17) Chest Pa/Lat (2 View) (10/29/18 05:17) Saline Lock/Iv-Start (10/29/18 05:22) Ekg Tracing (10/29/18 05:22) BNP (10/29/18 05:22) Cbc With Automated Diff (10/29/18 05:22) Comprehensive Metabolic Panel (10/29/18 05:22) Creatine Kinase (10/29/18 05:22) Creatine Kinase Mb (10/29/18 05:22) Lactic Acid Analyzer (10/29/18 05:22) Magnesium (10/29/18 05:22) Protime With Inr (10/29/18 05:22) Partial Thromboplastin Time (10/29/18 05:22) Troponin I (10/29/18 05:22) Ua Culture If Indicated (10/29/18 05:22) Blood Culture (10/29/18 05:22) Aspirin Chewable Tablet (Baby Aspirin Ch (10/29/18 05:21) Aspirin Chewable Tablet (Baby Aspirin Ch (10/29/18 06:00) Alcohol (10/29/18 06:07) Arterial Blood Gas (10/29/18 06:07) Drug Screen Stat (Urine) (10/29/18 06:07) Ceftriaxone For Iv Use (Rocephin For I (10/29/18 07:00) Insulin (Regular) Human (Humulin R (Per (10/29/18 07:00) Saline Lock/Iv-Start (10/29/18 06:53) Ns Iv 1000 Ml (Sodium Chloride 0.9%) (10/29/18 06:53) Medications Given in ED Current Medications Medications Dose Ordered Sig/Bushra Route Start Time Stop Time Status Last Admin Dose Admin Aspirin 324 mg ONCE ONCE PO 10/29/18 06:00 10/29/18 06:01 DC 10/29/18 06:17 324 MG Vital Signs/I&O 10/29/18 10/29/18 05:15 05:15 Temp 99.8 Pulse 90 Resp 20 B/P (MAP) 127/100 (109) Pulse Ox 96 O2 Delivery Room Air Room Air Capillary Refill : Less Than 3 Seconds Blood Pressure Mean: 109 Progress Note : Progress Note NO COMPLAINTS OF CHEST PAIN OR SHORTNESS OF BREATH OR ANY SYMPTOMS OTHER THAN SINUS DRAINAGE. NO DETERIORATION IN PT'S CONDITION DURING ER STAY ECG Initial ECG Impression Date: Oct 29, 2018 Initial ECG Impression Time: 05:26 Initial ECG Rate: 99 Initial ECG Rhythm: Normal Sinus (PVC, IVCD) Initial ECG Impression: Nonspecific Changes, 1st Degree AV Block Diagnostic Imaging Comments CXR--RLL INFILTRATE, PENDING RADIOLOGIST REVIEW Reviewed: Reviewed by Me Departure Communication (Admissions) [id number]--ATTEMPTING TO CONTACT DR. MCGINNIS, MESSAGE LEFT ON CELL. [id number]--SPOKE WITH DR. MCGINNIS, ACCEPTS PT FOR ADMIT. Impression Primary Impression: RLL pneumonia Additional Impressions: Uncontrolled diabetes mellitus Lactic acidosis Smoker Disposition: 09 ADMITTED INPATIENT Condition: Stable Admissions Decision to Admit Reason: Admit from ER (General) Decision to Admit/Date: Oct 29, 2018 Time/Decision to Admit Time: 07:00 Departure-Patient Inst. Referrals: SAMUEL MOREAU MD (PCP/Family) Primary Care Physician HILARIA NEWBERRY DO Oct 29, 2018 06:05
[2018-10-29 06:42] LABS: ABG BASE EXCESS 0.2 MMOL/L (-2.5-2.5); ABG OXYGEN SATURATION 97 % (94-100); ABG PCO2 40 MMHG (35-45); ABG PH 7.41 (7.37-7.43); ABG PO2 90 MMHG (79-93); ABG TCO2 25.3 MMOL/L (21.0-31.0)
[2018-10-29 06:44] LABS: ALLENS TEST POSITIVE; INSPIRED O2 N; VENTILATOR NO
[2018-10-29 06:53] LABS: AMPHETAMINE SCREEN, URINE NEGATIVE (NEGATIVE); BACTERIA,URINE TRACE /HPF; BARBITURATE SCREEN URINE NEGATIVE (NEGATIVE); BENZODIAZEPINES SCREEN URINE NEGATIVE (NEGATIVE); BILIRUBIN,URINE NEGATIVE (NEGATIVE); CANNABINOID SCREEN, URINE NEGATIVE (NEGATIVE); CLARITY,URINE CLEAR; COCAINE SCREEN URINE NEGATIVE (NEGATIVE); COLOR,URINE YELLOW; GLUCOSE, URINE (UA) 4+ (NEGATIVE); KETONES,URINE NEGATIVE (NEGATIVE); LEUKOCYTE ESTERASE ,URINE NEGATIVE (NEGATIVE); METHADONE STAT NEGATIVE (NEGATIVE); METHAMPHETAMINE SCREEN URINE S NEGATIVE (NEGATIVE); NITRITE,URINE NEGATIVE (NEGATIVE); OPIATE SCREEN URINE NEGATIVE (NEGATIVE); OXYCODONE STAT NEGATIVE (NEGATIVE); PH,URINE 6 (5-9); PROPOXYPHENE STAT NEGATIVE (NEGATIVE); PROTEIN,URINE NEGATIVE (NEGATIVE); SQUAMOUS EPITHELIAL CELL,UR 0-2 /HPF; TRICYCLIC ANTIDEPRESSANTS SCRE NEGATIVE (NEGATIVE); UROBILINOGEN,URINE NORMAL (NORMAL)
--- NOTE | 2018-10-29 06:54 | NUR ---
Report given to Armida Cedillo RN.
[2018-10-29] MEDS ORDERED: cefTRIAXone FOR IV USE 1,000 MG in NS (IVPB) 50 ML IV ONE (07:00)
[2018-10-29] MEDS ORDERED: inSUlin (REGULAR) HUMAN 1 UNIT/0.01 ML (CHARGE PER UNIT) IV ONE (07:00)
--- NOTE | 2018-10-29 07:00 | Diagnostic Imaging Report ---
PATIENT HISTORY: Sinus pain and congestion. TECHNIQUE: 2 views of the chest COMPARISON: 11/27/2017 FINDINGS: The cardiac silhouette is stable in size. There is mild central vascular congestion and mild interstitial opacities. Mildly increased airspace opacity is seen in the right lung base compared to the prior exam. No pneumothorax is seen. No acute osseous abnormalities seen. IMPRESSION: 1. Mildly increased airspace opacity in the right lung base compared to the prior study, may be due to infection or edema. 2. Stable mild cardiomegaly with central vascular congestion and prominent interstitial markings. Dictated by: Dictated on workstation # [id number]
[2018-10-29] MEDS ORDERED: cefTRIAXone 1 GM/10 ML for IV (ROCEPHIN) ONE (07:04)
[2018-10-29] MEDS ORDERED: NS IV 1000 ML 1,000 ML ONE (07:05)
[2018-10-29] MEDS ORDERED: NS (IVPB) 100 ML ONE (07:06)
[2018-10-29] MEDS ORDERED: inSUlin (REGULAR) HUMAN 1 UNIT/0.01 ML (CHARGE PER UNIT) ONE (07:07)
[2018-10-29] MEDS: NS IV 1000 ML 1,000 ML IV ONE ×2 (07:16→07:54)
[2018-10-29] MEDS ORDERED: ACETAMINOPHEN 500 MG TAB (TYLENOL) PO ONE (07:30)
--- NOTE | 2018-10-29 08:00 | NUR ---
PT NOTIFIED THAT SOON HIS FLUIDS ARE FINISHED HE WOULD BE GOING UPSTAIRS.
--- OUTSIDE RECORDS SUMMARY | 2018-10-29 08:07 | XMS REPORT | Continuity of Care Document ---
Demographics Preferred Language Unknown Marital Status Unknown Cheondoism Affiliation Unknown Race Unknown Ethnic Group Unknown Author Author [email or web address] Address Unknown Phone Unavailable Allergies Active Description Code Type Severity Reaction Onset Reported/Identified Relationship to Patient Clinical Status Yes NO KNOWN DRUG ALLERGIES UNKNOWN NO KNOWN DRUG ALLERG Yes No Known Drug Allergies [id number] Drug Allergy Unknown N/A 06/17/2017 Medications Medication [...] FACTORS, INI 06/17/2017 AMANDEEP HINTON Ot Z79.84 DUTY MANAGER (CURRENT) USE OF ORAL HYPOGLYC 06/17/2017 AMANDEEP [...] FACTORS, INI 06/19/2017 AMANDEEP HINTON Ot Z79.84 SKILLED NURSING (CURRENT) USE OF ORAL HYPOGLYC 06/19/2017 AMANDEEP [...] U 07/28/2017 CANDIE MAURICIO MD Ot Z79.84 DUTY MANAGER (CURRENT) USE OF ORAL HYPOGLYC 07/28/2017 CANDIE MAURICIO MD Ot Z87.442 PERSONAL HISTORY OF URINARY CALCULI 07/31/2017 CHAITANYA HENDERSON APRN Ot E11.65 TYPE 2 DIABETES MELLITUS WITH HYPERGLYCE 07/31/2017 CHAITANYA HENDERSON APRN Ot F17.210 NICOTINE DEPENDENCE, CIGARETTES, UNCOMPL 07/31/2017 CHAITANYA HENDERSON APRN Ot I10 ESSENTIAL (PRIMARY) HYPERTENSION 07/31/2017 CHAITANYA HENDERSON DISTRIBUTION CENTER ASSISTANT Ot J44.9 CHRONIC OBSTRUCTIVE PULMONARY DISEASE, U 07/31/2017 CHAITANYA HENDERSON DISTRIBUTION CENTER ASSISTANT Ot R73.9 HYPERGLYCEMIA, UNSPECIFIED 07/31/2017 CHAITANYA HENDERSON DISTRIBUTION CENTER ASSISTANT Ot Z79.84 SKILLED NURSING (CURRENT) USE OF ORAL HYPOGLYC 07/31/2017 CHAITANYA HENDERSON DISTRIBUTION CENTER ASSISTANT Ot Z87.442 PERSONAL HISTORY OF URINARY CALCULI [...] 11/27/2017 CONI DO, HILARIA K Ot Z79.84 DUTY MANAGER (CURRENT) USE OF ORAL HYPOGLYC 11/27/2017 CONI [...] TYPE 2 DIABETES MELLITUS WITH HYPERGLYCE 05/12/2018 DIOMEDE MD, TIMI D Ot F17.210 NICOTINE DEPENDENCE, [...] PAIN 05/12/2018 TIMI CRAVEN MD Ot Z79.84 DUTY MANAGER (CURRENT) USE OF ORAL HYPOGLYC 05/12/2018 TIMI [...] PAIN 09/12/2018 TIMI CRAVEN MD Ot Z79.84 DUTY MANAGER (CURRENT) USE OF ORAL HYPOGLYC 09/12/2018 TIMI [...] Status Pt. Type Provider Facility Loc./Unit Complaint [id number] 05/12/2018 02:38:00 05/12/2018 04:40:00 DIS Outpatient HERBER WINSLOW, TIMI Moreira Via [facility] ER SIDE PAIN POSS KIDNEY STONES [id number] 11/27/2017 18:07:00 11/27/2017 20:32:00 DIS Emergency HILARIA NEWBERRY DO Via [facility] ER HERNIA PAIN [id number] 07/31/2017 11:53:00 07/31/2017 13:15:00 DIS Emergency CHAITANYA HENDERSON APRN Via [facility] ER BLOOD SUGAR HIGH [id number] 07/28/2017 00:03:00 07/28/2017 03:08:00 DIS Emergency CANDIE MAURICIO MD Via [facility] ER F O IN RT EYE [id number] 06/17/2017 12:34:00 06/17/2017 15:40:00 DIS Emergency AMANDEEP HINTON Via [facility] ER R SIDE HIP PAIN [id number] 09/27/2018 12:30:00 09/27/2018 23:59:59 CLS Outpatient EMERSON GAUTAM [facility] [id number] 08/22/2018 11:00:00 Document Registration [id number] 06/18/2018 15:00:00 Document Registration [id number] 08/29/2017 13:20:00 Document Registration [id number] 02/10/2018 19:50:00 02/10/2018 21:18:00 DIS Outpatient WALTER HERNANDEZ [facility] ER [id number] 02/10/2018 20:17:50 Document Registration
--- NOTE | 2018-10-29 08:37 | NUR ---
ATTEMPT TO CALL REPORT ET TRAVIS RN TO CALL ME BACK.
--- NOTE | 2018-10-29 08:50 | NUR ---
Elizabeth Pedraza admitted to room 411-1, with an admitting diagnosis of pneumonia, uncontrolled diabetes, and lactic acidosis, on 10/29/18 from ED via wheelchair, accompanied by staff ania.ELIZABETH PEDRAZA introduced to surroundings, call light, bed controls, phone, TV, temperature control, lights, meal times, smoking policy, visitor policy, side rail policy, bathrooms and showers. Patient Rights given to patient in the handbook.ELIZABETH PEDRAZA verbalizes understanding that [facility] is not responsible for the loss or damage to any personal effects or valuables that are kept in the patients posession during their hospitalization. Care Plans were discussed with the patient as well as Discharge Planning. ELIZABETH PEDRAZA verbalizes understanding of Interdisciplinary Patient Education. Patient and/or family were informed about the Rapid Response Team and its purpose.
[2018-10-29] MEDS ORDERED: ACETAMINOPHEN 500 MG TAB (TYLENOL) PO PRN (09:15)
[2018-10-29] MEDS ORDERED: PIPERACILLIN/TAZO 4.5 GM/NS 100 ML IV NR ×2 (09:15)
[2018-10-29] MEDS: NS IV 1000 ML 1,000 ML IV SCH ×3 (09:42→20:30)
[2018-10-29] MEDS ORDERED: RT-ALBUTEROL SULF 2.5 MG/3 ML PRE-MIX VIAL INH PRN (10:00)
[2018-10-29] MEDS ORDERED: FLU QUADRIvalent (5+ YOA) 2018-2019 (AFLURIA) 0.5 ML IM ONE (10:15)
--- NOTE | 2018-10-29 10:41 | History & Physical-Hospitalist ---
History of Present Illness HPI/Chief Complaint Pt is a 48yoM with a PMH of NIDDMII and HTN who presented to the ER due to cough and congestion with SOB. He states that his symptoms started roughly 2 weeks ago and he believed he had a sinus infection. He had cough with significant sputum production and sneezing. He attempted to see his PCP yesterday but was unable to due to the holiday so decided to seek care in the ER. he was found to have a RLL pneumonia and was admitted for further management. Source: patient Exam Limitations: no limitations Date Seen 10/29/18 Time Seen by a Provider: 10:49 Attending Physician Jackie Mccartney MD PCP Jackie Mccartney MD Referring Physician Date of Admission Oct 29, 2018 at 07:00 Home Medications & Allergies Home Medications Reviewed patient Home Medication Reconciliation performed by pharmacy medication reconciliations denture laboratory technician and/or nursing. Patients Allergies have been reviewed. Allergies Allergies Coded Allergies No Known Drug Allergies (Unverified06/17/17) Past Fqzlayy-Xcwamx-Pvphkd Hx Past Med/Social Hx: Reviewed Nursing Past Med/Soc Hx Patient Social History Alcohol Use: Past History Recreational Drug Use: Yes Drug of Choice: COCAINE/CRACK & ECSTASY-TESTED + FOR METH/AMPHETAMINES AND OPIATES 11/27/17 Smoking Status: Current Everyday Smoker Type Used: Cigarettes 2nd Hand Smoke Exposure: Yes Physical Abuse Screen: No Sexual Abuse: No Recent Foreign Travel: No Contact w/other who traveled: No Recent Hopitalizations: No Recent Infectious Disease Expo: No Immunizations Up To Date Date of Pneumonia Vaccine: Jul 29, 2014 Seasonal Allergies Seasonal Allergies: No Past Medical History Surgeries: Cardiac (cath without stents), Renal (stones) Respiratory: Sleep Apnea Currently Using CPAP: Yes Cardiac: Hypertension Genitourinary: Kidney Stones Gastrointestinal: Abdominal Hernia Musculoskeletal: Arthritis, Chronic Back Pain Endocrine: Diabetes, Non-Insulin dep Are Your Blood Sugars Over 250: Yes HEENT: Cataract History of Blood Disorders: No Family History Diabetes mellitus 19 FATHER Diabetes Review of Systems Constitutional: fever EENTM: nose congestion Respiratory: cough, phlegm, short of breath Cardiovascular: No chest pain, No edema, No palpitations Gastrointestinal: No abdominal pain, No constipation, No diarrhea, No nausea, No vomiting Genitourinary: No dysuria, No frequency Musculoskeletal: No joint pain, No muscle pain Skin: No lesions, No rash Psychiatric/Neurological: Denies Headache, Denies Numbness, Denies Tingling Physical Exam Physical Exam Vital Signs Vital Signs - First Documented 10/29/18 10/29/18 05:15 10:06 Temp 99.8 Pulse 90 Resp 20 B/P (MAP) 127/100 (109) Pulse Ox 96 O2 Delivery Room Air FiO2 21 Capillary Refill : Less Than 3 Seconds Height, Weight, BMI Height: 6'1.00" Weight: 268lbs. 8.4oz. 121.836738gt; 35.4 BMI Method:Stated General Appearance: No Apparent Distress, WD/WN HEENT: PERRL/EOMI, Moist Mucous Membranes Neck: Non Tender, Supple Respiratory: No Respiratory Distress, Crackles Cardiovascular: Regular Rate, Rhythm, No Murmur Gastrointestinal: Normal Bowel Sounds, Non Tender, Soft Extremity: Normal Capillary Refill, No Calf Tenderness Neurologic/Psychiatric: Alert, Oriented x3, Normal Mood/Affect Skin: Normal Color, Warm/Dry Results Results/Procedures Labs Laboratory Tests 10/29/18 05:12 Patient resulted labs reviewed. Imaging: Reviewed Imaging Report Assessment/Plan Admission Diagnosis Pneumonia Admission Status: Inpatient Order (span 2 midnights) Reason for Inpatient Admission: lactic acidosis and pneumonia with severely elevated blood sugars, will likely take more than two midnights to stabilize for DC Diagnosis/Problems Diagnosis/Problems (1) RLL pneumonia Status: Acute Assessment & Plan: Smoker so higher risk Continue on Zosyn Lactic acid elevated but does not appear to be sepsis afebrile with no leukocytosis Await cultures from ER Qualifiers: Pneumonia type: due to unspecified organism Qualified Codes: J18.1 - Lobar pneumonia, unspecified organism (2) Uncontrolled diabetes mellitus Status: Acute Assessment & Plan: BS 449 on arrival Not currently on insulin Will hold home metformin due to lactic acidosis SSI ordered A1c ordered may need insulin upon discharge as he states his normally around 200-400 when he checks Qualifiers: Diabetes mellitus type: type 2 Glycemic state: with hyperglycemia Qualified Codes: E11.65 - Type 2 diabetes mellitus with hyperglycemia (3) Essential (primary) hypertension Assessment & Plan: Well controlled currently, will trend (4) Smoker Status: Acute Assessment & Plan: Requested information on smoking cessation Patient education consulted Nicotine patch ordered prn (5) Lactic acidosis Status: Acute Assessment & Plan: Resolved Clinical Quality Measures DVT/VTE Risk/Contraindication: Risk Factor Score Per Nursin RFS Level Per Nursing on Admit: 3=High ASYA PENA MD Oct 29, 2018 10:41
[2018-10-29] MEDS ORDERED: PROMETHAZINE/ CODEINE SYRUP 5 ML UDC PO PRN (11:00)
[2018-10-29] MEDS: HYDROcodone/APAP 5 MG/325 MG (LORTAB) TAB PO PRN ×2 (11:16→19:11)
[2018-10-29] MEDS: NICOTINE 14 MG (NICODERM) PATCH TD PRN (11:17)
[2018-10-29] MEDS: inSUlin ASPART (NovoLOG) 1 UNIT/0.01 ML (CHARGE PER UNIT) SC SCH ×3 (11:17→21:45)
[2018-10-29] MEDS ORDERED: METF500T8 PO (11:21)
[2018-10-29] MEDS ORDERED: GLIM1TAB PO (11:22)
[2018-10-29] MEDS ORDERED: LISI-552 PO (11:22)
[2018-10-29] MEDS ORDERED: ATEN50TA PO (11:22)
[2018-10-29] MEDS ORDERED: ASPI-586 PO (11:23)
--- NOTE | 2018-10-29 11:23 | NUR ---
SPOKE TO PATIENT HE STATED HIS MEDICATIONS HES NOT POSITIVE ON THE DOSE STRENGTHS. COULD NOT CALL [facility] BECAUSE THEY ARE CLOSED FOR THE DAY.
--- NOTE | 2018-10-29 11:30 | NUR ---
This RN spoke with Dr. Trevizo, verbal order received, okay to DC Q2H vitals and start Q4H vitals.
[2018-10-29] MEDS: IBUPROFEN 600 MG (MOTRIN) TAB PO SCH ×2 (14:12→21:45)
[2018-10-29] MEDS: PIPERACILLIN/TAZO 4.5 GM/NS 100 ML IV SCH ×4 (14:44→22:00)
[2018-10-29] MEDS: RT-ALBUTEROL SULF 2.5 MG/3 ML PRE-MIX VIAL INH SCH ×2 (15:39→21:35)
[2018-10-29] MEDS ORDERED: DOCUSATE SODIUM 100 MG (COLACE) CAP PO PRN (18:45)
[2018-10-29] MEDS ORDERED: CALCIUM CARBONATE 500 MG (TUMS) TAB.CHEW PO PRN (18:45)
[2018-10-29] MEDS ORDERED: diphenhydrAMINE 25 MG TAB (BENADRYL) PO PRN (18:45)
[2018-10-29] MEDS ORDERED: ALPRAZolam 0.25 MG (XANAX) TAB PO PRN (18:45)
[2018-10-30] MEDS: PHENYLEPHRINE 0.25% NASAL SPR (NEO-SYNEPHRINE) 15 ML NS PRN ×2 (00:37→06:19)
[2018-10-30 00:45] VITALS: BP 140/72
--- NOTE | 2018-10-30 01:20 | NUR ---
0000-pt called this rn to his room stating "we gotta do something I can't take this. My nose is all stopped up & it's making me anxious to wear this mask(cpap)." pt states that he uses a spray called [employer] at home every night & requests that this rn call the drJulien for a nasal spray. 0007-this rn contacted dr. snyder via telephone-prn miriam-synephrine ordered-she agreed [id number] administered 0040-pt states that the congestion is better but is requesting something for anxiety 0044-prn Xanax given for the anxiety 0115-pt states that he is feeling more relaxed. resting in bed with cpap on. significant other at bedside.
[2018-10-30 04:00] VITALS: BP_SYST 139; BP_SYST 140; BP_DIAS 86; BP_DIAS 91
[2018-10-30] MEDS: RT-ALBUTEROL SULF 2.5 MG/3 ML PRE-MIX VIAL INH SCH ×2 (05:15→08:02)
[2018-10-30 05:51] LABS: BASOPHILS % (AUTO) 1 % (0-10); EOSINOPHILS # (AUTO) 0.3 10^3/uL (0.0-0.3); EOSINOPHILS % (AUTO) 4 % (0-10); HEMATOCRIT 42 % (40-54); HEMOGLOBIN 14.4 G/DL (13.3-17.7); LYMPHOCYTES # (AUTO) 2.1 X 10^3 (1.0-4.0); LYMPHOCYTES % (AUTO) 30 % (12-44); MEAN CORPUSCULAR HEMOGLOBIN 30 PG (25-34); MEAN CORPUSCULAR HGB CONC 34 G/DL (32-36); MEAN CORPUSCULAR VOLUME 87 FL (80-99); MEAN PLATELET VOLUME 10.2 FL (7.4-10.4); MONOCYTES # (AUTO) 0.4 X 10^3 (0.0-1.0); MONOCYTES % (AUTO) 5 % (0-12); NEUTROPHILS # (AUTO) 4.2 X 10^3 (1.8-7.8); NEUTROPHILS % (AUTO) 60 % (42-75); PLATELET COUNT 300 10^3/uL (130-400); RED BLOOD COUNT 4.84 10^6/uL (4.35-5.85); RED CELL DISTRIBUTION WIDTH 13.1 % (10.0-14.5)
[2018-10-30 06:16] LABS: ALANINE AMINOTRANSFERASE 31 U/L (0-55); ALKALINE PHOSPHATASE 106 U/L (40-136); BILIRUBIN,TOTAL 0.7 MG/DL (0.1-1.0); BUN/CREATININE RATIO 12; CARBON DIOXIDE 23 MMOL/L (21-32); CHLORIDE 106 MMOL/L (98-107); CREATININE SERUM 0.85 MG/DL (0.60-1.30); GFR ESTIMATED > 60; GLUCOSE 228 MG/DL (70-105); POTASSIUM 3.5 MMOL/L (3.6-5.0); SODIUM 141 MMOL/L (135-145); TOTAL PROTEIN 6.7 GM/DL (6.4-8.2)
[2018-10-30] MEDS: NS IV 1000 ML 1,000 ML IV SCH (06:16)
[2018-10-30] MEDS: PIPERACILLIN/TAZO 4.5 GM/NS 100 ML IV SCH ×2 (06:16)
[2018-10-30] MEDS: HYDROcodone/APAP 5 MG/325 MG (LORTAB) TAB PO PRN (06:17)
[2018-10-30] MEDS: IBUPROFEN 600 MG (MOTRIN) TAB PO SCH (06:17)
[2018-10-30] MEDS: inSUlin ASPART (NovoLOG) 1 UNIT/0.01 ML (CHARGE PER UNIT) SC SCH ×2 (06:18→11:18)
--- NOTE | 2018-10-30 08:14 | NUR ---
RT entered pt room, pt upset that RT woke him up. Pt and female in the room stated that pt has had no sleep in 48 hrs. Pt states "that it doesnt make any sense that he was told he would have a breathing tx at 0300 and not be woke up bc a something would be placed in bipap so he could sleep" . RT tried to discuss hospital triage policy. He was upset because NA entered room and asked about urine output. This RT asked pt if he had ever been in the hospital before? To familiarize pt to hospital activities. He then begain to yell loudly that he did not like my "condesending attitude". The female at bedside, laughed. Pt agrees to take SVN, pt states that he just wants to "get outta here". This RT offered a pot room supervisor or management. Pt states " No. I will feel out my survey". RT offered to place bipap back on pt, pt refused.
[2018-10-30 08:50] VITALS: BP 131/79
[2018-10-30] MEDS ORDERED: PATCH REMOVAL TP SCH (09:00)
[2018-10-30] MEDS: NICOTINE 14 MG (NICODERM) PATCH TD PRN (09:09)
[2018-10-30] MEDS ORDERED: [UNRECOGNIZED DRUG - CODE] MC (09:21)
[2018-10-30] MEDS ORDERED: AMOX-358 PO (09:21)
[2018-10-30] MEDS ORDERED: HUM100VI15 SQ (09:21)
[2018-10-30] MEDS ORDERED: LACT1TAB25 PO (09:21)
--- NOTE | 2018-10-30 09:23 | Discharge Inst-Complex ---
PDI Med Rec & Follow Up Appt. New Medications: Amoxicillin/Potassium Clav (Augmentin 875-125 Tablet) 1 Each Tablet 1 EACH PO BID, #20 TAB Insulin NPH Hum/Reg Insulin Hm (Novolin 70-30 100 Unit/ml Vial) 100 Unit/1 Ml Vial 10 UNIT SQ BID WITH MEALS, #2 VIAL 6 Refills Lactobacillus Acidophilus (Probiotic Acidophilus) 1 Each Tablet 1 EACH PO BID, #20 TAB Syring W-Ndl,Disp,Insul,0.5 ml (Easy Touch Insulin Syringe) 1 Each Disp.syrin EACH MC BID WITH MEALS for use with insulin, #100 11 Refills use one insulin syringe with insulin at mealtime breakfast and supper Continued Medications: Aspirin (Aspir 81) 81 Mg Tablet.dr 81 MG PO DAILY, TAB Atenolol (Atenolol) 50 Mg Tablet 50 MG PO DAILY, TAB Glimepiride (Glimepiride) 1 Mg Tablet 1 MG PO DAILY, TAB Lisinopril (Lisinopril) 20 Mg Tablet 20 MG PO DAILY, TAB Discontinued Medications: Metformin HCl (Metformin HCl ER) 500 Mg Tab.er.24h 500 MG PO BID, TAB Prescription: Transmitted to Pharmacy Activity, Diet and PDI Resume Normal Activity: Yes Discharge Diet: ADA Diet Diet for 24 Hours: No Alcohol Drink 6-8 Glasses of Fluid/Day: Yes Driving Instructions: You May Drive Return to The Hospital For: any concern for lifethreatening illness or injury Symptoms to Reoprt to : Appetite Changes, Fever Over 101 Degrees F, Pain/ Pressure in Chest, Cough Up/Vomit Blood, Diarrhea(Persistant), Dizziness/ Fainting, Nausea/Vomiting For Problems or Questions: Contact Your Physician, Go to Emergency Room SAMUEL MOREAU MD Oct 30, 2018 09:23
--- NOTE | 2018-10-30 09:26 | Discharge Summary ---
Diagnosis/Chief Complaint Date of Admission Oct 29, 2018 at 07:00 Date of Discharge Discharge Date: Oct 30, 2018 Discharge Time: 1030 Admission Diagnosis Admission Diagnosis RIGHT LOWER LOBE PNEUMONIA DIABETES MELLITUS UNCONTROLLED WITH HYPERGLYCEMIA LACTIC ACIDOSIS HYPERTENSION SLEEP APNEA OBESITY TOBACCOISM Discharge Diagnosis RIGHT LOWER LOBE PNEUMONIA DIABETES MELLITUS UNCONTROLLED WITH HYPERGLYCEMIA LACTIC ACIDOSIS HYPERTENSION SLEEP APNEA OBESITY TOBACCOISM Reason Hospital Visit Pt is a 48yoM with a PMH of NIDDMII and HTN who presented to the ER due to cough and congestion with SOB. He states that his symptoms started roughly 2 weeks ago and he believed he had a sinus infection. He had cough with significant sputum production and sneezing. He attempted to see his PCP yesterday but was unable to due to the holiday so decided to seek care in the ER. he was found to have a RLL pneumonia and was admitted for further management. Discharge Summary Discharge Physical Examination Allergies: Coded Allergies: No Known Drug Allergies (Unverified , 06/17/17) Vitals & I&Os Vital Signs Date Time Temp Pulse Resp B/P (MAP) Pulse Ox O2 Delivery O2 Flow Rate FiO2 10/30/18 08:50 99.1 77 20 131/79 (96) 99 NIV CPAP 10/29/18 10:06 21 General Appearance: Alert, Oriented X3, Cooperative HEENT: Atraumatic, PERRLA Respiratory: Clear to Auscultation (UPPER WITH DECREASED AIR MOVEMENT IN BASE ON RIGHT) Cardiovascular: Regular Rate, Normal S1, Normal S2 Abdominal: Normal Bowel Sounds, Soft Extremities: No Clubbing, No Cyanosis Skin: No Rashes Neuro: Strength at 5/5 X4 Ext Psych/Mental Status: Mental Status NL, Mood NL Hospital Course RIGHT LOWER LOBE PNEUMONIA DIABETES MELLITUS UNCONTROLLED WITH HYPERGLYCEMIA LACTIC ACIDOSIS HYPERTENSION SLEEP APNEA OBESITY TOBACCOISM Pending Labs Laboratory Tests 10/30/18 05:29: White Blood Count 7.0, Red Blood Count 4.84, Hemoglobin 14.4, Hematocrit 42, Mean Corpuscular Volume 87, Mean Corpuscular Hemoglobin 30, Mean Corpuscular Hemoglobin Concent 34, Red Cell Distribution Width 13.1, Platelet Count 300, Mean Platelet Volume 10.2, Neutrophils (%) (Auto) 60, Lymphocytes (%) (Auto) 30 , Monocytes (%) (Auto) 5, Eosinophils (%) (Auto) 4, Basophils (%) (Auto) 1, Neutrophils # (Auto) 4.2, Lymphocytes # (Auto) 2.1, Monocytes # (Auto) 0.4, Eosinophils # (Auto) 0.3, Basophils # (Auto) 0.0, Sodium Level 141, Potassium Level 3.5, Chloride Level 106, Carbon Dioxide Level 23, Anion Gap 12, Blood Urea Nitrogen 10, Creatinine 0.85, Estimat Glomerular Filtration Rate > 60, BUN/ Creatinine Ratio 12, Glucose Level 228, Calcium Level 9.0, Corrected Calcium 9.0 , Total Bilirubin 0.7, Aspartate Amino Transf (AST/SGOT) 12, Alanine Aminotransferase (ALT/SGPT) 31, Alkaline Phosphatase 106, Total Protein 6.7, Albumin 4.0 10/30/18 05:47: Glucometer 204 Discharge Condition at discharge IMPROVED Instructions to patient/family Please see electronic discharge instructions given to patient. Discharge Medications Reviewed and agree with Discharge Medication list on patient's Discharge Instruction sheet Clinical Quality Measures DVT/VTE Risk/Contraindication: Risk Factor Score Per Nursin RFS Level Per Nursing on Admit: 3=High SAMUEL MOREAU MD Oct 30, 2018 09:26
--- NOTE | 2018-10-30 11:00 | NUR ---
ELY LOVELACE demonstrates understanding of discharge instructions and accurately returns instructions upon questioning. Copy of Post-Discharge Instructions and Medication Discharge Instructions given to patient. ELY LOVELACE is able to manage continuing needs after discharge. Patients belongings returned to patient. Skin dry and intact; no breakdown noted. Patient discharged from [facility]- on 10/30/18 at 1100. ELY LOVELACE left floor ambulating, accompanied by staff and family. f/u appointment given patient
--- NOTE | 2018-10-30 11:05 | NUR ---
CM/SS spoke with the patient regarding SS consult. Patient is diabetic, though, he gets his medications from [facility] and will continue to do so.
== END 2018-10-30 11:00 | disposition home or self-care (01) | DRG 194 ==
LOC: EDUNIT# 04:59 → ER 05:01 → 4TH 07:00
PROVIDERS: ADMIT Internal Medicine; ATTEND Family Medicine
DX: J18.9 Pneumonia, unspecified organism (principal); E11.65 Type 2 diabetes mellitus with hyperglycemia; E87.2 Acidosis; I10 Essential (primary) hypertension; J44.9 Chronic obstructive pulmonary disease, unspecified; F17.210 Nicotine dependence, cigarettes, uncomplicated; G47.30 Sleep apnea, unspecified; E66.9 Obesity, unspecified; Z68.36 Body mass index [BMI] 36.0-36.9, adult; Z79.84 Long term (current) use of oral hypoglycemic drugs
CPT/HCPCS: 36415; 71046; 80053; 80306; 80320; 81000; 82550; 82553; 82805; 82962; 83036; 83605; 83735; 83880; 84484; 85025; 85610; 85730; 87040; 87070; 87205; 87804; 90686; 93005; 93041; 94640; 94660; 94760; 96365; 96367